=== PATIENT | male | born 1965 | race Two or more races ===

== ENCOUNTER 2016-07-23 17:38 | Emergency (ER) | payer OTHER ==
[2016-07-23 18:06] VITALS: BP 133/83
--- NOTE | 2016-07-23 18:34 | UC ---
Ear Complaint HPI - HPI Summary HPI Summary: Patient was cleaning his right ear 1 hour ago, had a sudden pain and is having difficulty hearing out of the right ear. - History of Current Complaint Chief Complaint: UCEar Stated Complaint: EAR COMPLAINT Time Seen by Provider: 07/23/16 18:22 Hx Obtained From: Patient Onset/Duration: Sudden Onset, Lasting Hours Severity Initially: Moderate Severity Currently: Moderate Associated Signs/Symptoms: Positive: Hearing Loss - Allergies/Home Medications Allergies/Adverse Reactions: Allergies Allergy/AdvReac Type Severity Reaction Status Date / Time No Known Allergies Allergy Verified 07/23/16 18:06 PMH/Surg Hx/FS Hx/Imm Hx Previously Healthy: Yes Endocrine History Of: Reports: Diabetes Denies: Thyroid Disease Cardiovascular History Of: Reports: Cardiac Disorders - CABG x2, Hypertension, Myocardial Infarction - x2 Denies: Pacemaker/ICD, Congestive Heart Failure Respiratory History Of: Denies: COPD, Asthma GI/ History Of: Denies: Ulcer, Renal Disease - Surgical History Surgical History: Yes Surgery Procedure, Year, and Place: Stent to LAD 2003. cardiac bypass surgery 2009, 2011 - Family History Known Family History: Positive: None - Social History Alcohol Use: Rare Substance Use Type: None Smoking Status (MU): Heavy Every Day Tobacco Smoker Type: Cigarettes Amount Used/How Often: 1 pck per day Have You Smoked in the Last Year: Yes - "a cigarette if I'm very stressed". When Did the Patient Quit Smoking/Using Tobacco: 10 days ago - Immunization History Most Recent Influenza Vaccination: never Most Recent Tetanus Shot: Unknown Most Recent Pneumonia Vaccination: never Review of Systems Constitutional: Negative Skin: Negative Eyes: Negative ENT: Ear Ache Respiratory: Negative Cardiovascular: Negative Gastrointestinal: Negative Genitourinary: Negative Motor: Negative Neurovascular: Negative Musculoskeletal: Negative Neurological: Negative Psychological: Negative All Other Systems Reviewed And Are Negative: Yes Physical Exam Triage Information Reviewed: Yes Appearance: Well-Appearing, Well-Nourished, Pain Distress Vital Signs: Initial Vital Signs Temp 97.8 F 07/23/16 18:02 Pulse 82 07/23/16 18:02 Resp 20 07/23/16 18:02 BP 133/83 07/23/16 18:02 Pulse Ox 99 07/23/16 18:02 Vital Signs Reviewed: Yes Eye Exam: Normal Eyes: Positive: Conjunctiva Clear ENT: Positive: Normal ENT inspection, Hearing grossly normal, Other: - right sided cerumen impaction Dental Exam: Normal Neck exam: Normal Neck: Positive: Supple, Nontender, No Lymphadenopathy Respiratory Exam: Normal Respiratory: Positive: Chest non-tender, Lungs clear, Normal breath sounds Cardiovascular Exam: Normal Cardiovascular: Positive: RRR, No Murmur, Pulses Normal Abdominal Exam: Normal Abdomen Description: Positive: Nontender, No Organomegaly, Soft Bowel Sounds: Positive: Present Musculoskeletal Exam: Normal Neurological Exam: Normal Psychological Exam: Normal Skin Exam: Normal Ear Complaint Course/Dx - Course Course Of Treatment: hx obtained, exam performed, meds reviewed, right ear irrigation performed with good results, otitis media of right ear noted, - Differential Dx/Diagnosis Differential Diagnosis/HQI/PQRI: Bronchitis, Cellulitis, Cerumen Impaction, Otitis Externa, Otitis Media, Trauma, URI Provider Diagnoses: right cerumen impaction. right otitis media Discharge - Discharge Plan Condition: Stable Disposition: HOME Patient Education Materials: Otitis Media (ED) Additional Instructions: 1. take the medication as prescribed. 2. Dont use qtips in your ears!
== END 2016-07-23 19:07 | disposition home or self-care (01) ==
LOC: UCEAST 17:38
DX: H61.21 Impacted cerumen, right ear (principal); H66.91 Otitis media, unspecified, right ear; E11.9 Type 2 diabetes mellitus without complications; I25.2 Old myocardial infarction; I10 Essential (primary) hypertension; Z95.1 Presence of aortocoronary bypass graft; F17.210 Nicotine dependence, cigarettes, uncomplicated
CPT/HCPCS: 99213; G0463

== ENCOUNTER 2016-08-20 18:01 | Emergency (ER) | payer OTHER ==
[2016-08-20 18:14] VITALS: BP 118/79
== END 2016-08-20 19:43 | disposition left against medical advice (07) ==
LOC: ED 18:01
DX: K08.89 Other specified disorders of teeth and supporting structures (principal); Z53.21 Procedure and treatment not carried out due to patient leaving prior to being seen by health care provider

== ENCOUNTER 2016-08-20 19:38 | Emergency (ER) | payer OTHER ==
[2016-08-20 20:13] VITALS: BP 131/84
--- NOTE | 2016-08-20 21:09 | UC ---
Dental HPI - HPI Summary HPI Summary: Had L lower cracked rear molar removed by oral surgeon under general anesthesia 1 week ago. About 2-3 days ago has been having sharp stabbing pains on L cheek and around the eye. Not sure if his L top molars are infected now, but does not have pain with chewing or focal tenderness. No facial swelling or fever. - History of Current Complaint Chief Complaint: UCGeneralIllness Stated Complaint: TOOTH ACHE Time Seen by Provider: 08/20/16 20:49 Hx Obtained From: Patient Onset/Duration: Gradual Onset, Lasting Days Severity: Moderate Aggravating: Nothing - Allergies/Home Medications Allergies/Adverse Reactions: Allergies Allergy/AdvReac Type Severity Reaction Status Date / Time No Known Allergies Allergy Verified 07/23/16 18:06 PMH/Surg Hx/FS Hx/Imm Hx Endocrine History Of: Reports: Diabetes Denies: Thyroid Disease Cardiovascular History Of: Reports: Cardiac Disorders - CABG x2, Hypertension, Myocardial Infarction - x2 Denies: Pacemaker/ICD, Congestive Heart Failure Respiratory History Of: Denies: COPD, Asthma GI/ History Of: Denies: Ulcer, Renal Disease - Surgical History Surgical History: Yes Surgery Procedure, Year, and Place: Stent to LAD 2003. cardiac bypass surgery 2009, 2011 - Family History Known Family History: Positive: Hypertension - Social History Lives: With Family Alcohol Use: Rare Substance Use Type: None Smoking Status (MU): Heavy Every Day Tobacco Smoker Type: Cigarettes Amount Used/How Often: 1 pck per day Have You Smoked in the Last Year: Yes - "a cigarette if I'm very stressed". When Did the Patient Quit Smoking/Using Tobacco: 10 days ago - Immunization History Most Recent Influenza Vaccination: never Most Recent Tetanus Shot: Unknown Most Recent Pneumonia Vaccination: never Review of Systems Constitutional: Negative Skin: Negative Eyes: Negative ENT: Dental Pain, Other - facial pain Respiratory: Negative Cardiovascular: Negative Gastrointestinal: Negative Genitourinary: Negative Motor: Negative Neurovascular: Negative Musculoskeletal: Negative Neurological: Negative Psychological: Negative All Other Systems Reviewed And Are Negative: Yes Physical Exam Triage Information Reviewed: Yes Appearance: Well-Appearing, No Pain Distress, Well-Nourished Vital Signs: Initial Vital Signs Temp 97.8 F 08/20/16 20:05 Pulse 72 08/20/16 20:05 Resp 16 08/20/16 20:05 BP 131/84 08/20/16 20:05 Pulse Ox 99 08/20/16 20:05 Vital Signs Reviewed: Yes Eye Exam: Normal Eyes: Positive: Conjunctiva Clear ENT Exam: Normal ENT: Positive: Normal ENT inspection, Hearing grossly normal, Pharynx normal, TMs normal. Negative: TM bulging, TM dull, TM red, Tonsillar swelling, Tonsillar exudate Dental: Positive: Other: - site of L lower molar extraction healing without erythema or drainage. Negative: Percussion Tenderness @, Gross Decay/Caries @, Dental Fracture @ Neck exam: Normal Neck: Positive: Supple, Nontender, No Lymphadenopathy Respiratory Exam: Normal Respiratory: Positive: Chest non-tender, Lungs clear, Normal breath sounds, No respiratory distress, No accessory muscle use Cardiovascular Exam: Normal Cardiovascular: Positive: RRR, No Murmur Musculoskeletal Exam: Normal Neurological Exam: Normal Neurological: Positive: Alert Psychological Exam: Normal Skin Exam: Normal - Additional Comments reports some "tingling," faint symptoms with tapping over L facial nerve Dental Complaint Course/Dx - Differential Dx/Diagnosis Provider Diagnoses: L trigeminal neuralgia Discharge - Discharge Plan Condition: Stable Disposition: HOME Prescriptions: Gabapentin CAP(*) [Neurontin 300 CAP(*)] 300 mg PO TID #30 cap Ibuprofen TAB* [Motrin TAB* 600 MG] 600 mg PO Q8H PRN #30 tab PRN Reason: Pain Patient Education Materials: Trigeminal Neuralgia (ED) Referrals: Juan Manuel Sen MD [Primary Care Provider] - 3 Days Additional Instructions: I recommend you take one gabapentin pill tomorrow, two pills 12 hours apart the next day, and then start taking them three times per day after that. Your primary care office may direct you to take them in higher doses if you are still not getting pain relief. I do not see sings of dental infection, but if you have drainage in the mouth or facial swelling, please see your dentist or return here for further care.
== END 2016-08-20 21:15 | disposition home or self-care (01) ==
LOC: UCEAST 19:38
DX: G50.0 Trigeminal neuralgia (principal); E11.9 Type 2 diabetes mellitus without complications; F17.210 Nicotine dependence, cigarettes, uncomplicated; I10 Essential (primary) hypertension; Z95.5 Presence of coronary angioplasty implant and graft; I25.2 Old myocardial infarction
CPT/HCPCS: 99212; G0463

== ENCOUNTER 2016-10-04 06:45 | Day surgery (SDC) | payer OTHER ==
[~2016-10-04 06:45] MED LIST: Buffered Lidocaine 0.9% SYRIN* 5 ML/SYR SYRINGE INTRADERM ONE; Dexamethasone IV* 4 MG/ML 1 ML (4 MG) IV SLOW PU ONE; Famotidine IV* 10 MG/ML 2 ML (20 mg) IV ONE
[2016-10-04] MEDS ORDERED: Famotidine IV* 10 MG/ML 2 ML (20 mg) ONE (06:53)
[2016-10-04] MEDS ORDERED: Dexamethasone IV* 4 MG/ML 1 ML (4 MG) ONE ×2 (06:53→08:03)
[2016-10-04] MEDS ORDERED: Buffered Lidocaine 0.9% SYRIN* 5 ML/SYR SYRINGE ONE (06:53)
[2016-10-04] MEDS ORDERED: fentaNYL* 50 MCG/ML 2 ML VIAL (100 MCG VIAL) ONE (07:21)
[2016-10-04] MEDS ORDERED: Midazolam* 1 MG/ML 5 ML VIAL (5 MG) ONE (07:21)
[2016-10-04] MEDS ORDERED: Ketorolac INJ* 30 MG/ML 1 ML VIAL ONE (07:22)
[2016-10-04] MEDS ORDERED: Ondansetron INJ* 2 MG/ML VIAL ONE ×2 (07:22→08:03)
[2016-10-04] MEDS ORDERED: Propofol* 10 MG/ML 20 ML BTL IV PUSH ONE (07:22)
[2016-10-04] MEDS ORDERED: Bupivacaine 0.25% SDV* 30 ML ONE (07:24)
[2016-10-04] MEDS ORDERED: ceFAZolin 2 GM PREMIX(*) 2 GM/50 ML BAG IVPB ONE (07:29)
[2016-10-04 08:54] VITALS: BP 142/88
== END 2016-10-04 08:50 | disposition home or self-care (01) ==
LOC: OREAST 06:45
PROVIDERS: ATTEND Plastic Surgery
DX: M65.322 Trigger finger, left index finger (principal); E11.9 Type 2 diabetes mellitus without complications; Z79.4 Long term (current) use of insulin; I10 Essential (primary) hypertension; Z95.5 Presence of coronary angioplasty implant and graft; Z79.01 Long term (current) use of anticoagulants; F17.210 Nicotine dependence, cigarettes, uncomplicated
CPT/HCPCS: J0690; J1100; J1885; J2250; J2405; J2704; J3010

== ENCOUNTER 2017-01-17 09:00 | Emergency (ER) | payer OTHER ==
[2017-01-17 09:14] VITALS: BP 153/79
--- NOTE | 2017-01-17 10:33 | UC ---
Respiratory Complaint HPI - HPI Summary HPI Summary: This is a 51 yo male with IDDM and CAD who smokes daily who presents with c/o cough x 2-3d. Patient denies assoc fever and SOB. No sick contacts. No n/v or abd pain. He denies a h/o COPD. Denies a h/o freq lung infections. Patient reports that his cough is mildly productive. - History of Current Complaint Chief Complaint: UCRespiratory Stated Complaint: CONGESTION COUGH - Allergies/Home Medications Allergies/Adverse Reactions: Allergies Allergy/AdvReac Type Severity Reaction Status Date / Time No Known Allergies Allergy Verified 01/17/17 09:14 PMH/Surg Hx/FS Hx/Imm Hx Previously Healthy: No Endocrine History: Diabetes Cardiovascular History: Cardiac Disease - Surgical History Surgical History: Yes Surgery Procedure, Year, and Place: Stent to LAD 2001. CARDIAC STENTS PLACED 1 2001, 1 STENT 2010. 12/2015 LAPAROSCOPIC CHOLEYCECTOMY - Family History Known Family History: Positive: None - Social History Alcohol Use: None Substance Use Type: None Smoking Status (MU): Heavy Every Day Tobacco Smoker Type: Cigarettes Amount Used/How Often: 1 pck per day Have You Smoked in the Last Year: Yes - "a cigarette if I'm very stressed". When Did the Patient Quit Smoking/Using Tobacco: 10 days ago - Immunization History Most Recent Influenza Vaccination: never Most Recent Tetanus Shot: Unknown Most Recent Pneumonia Vaccination: never Review of Systems Constitutional: Negative Skin: Negative Eyes: Negative ENT: Negative Respiratory: Cough Cardiovascular: Negative Gastrointestinal: Negative Genitourinary: Negative Motor: Negative Neurovascular: Negative Musculoskeletal: Negative Neurological: Negative Psychological: Negative Is Patient Immunocompromised?: No All Other Systems Reviewed And Are Negative: Yes Physical Exam Triage Information Reviewed: Yes Appearance: Well-Appearing Vital Signs: Initial Vital Signs Temp 98.3 F 01/17/17 09:11 Pulse 87 01/17/17 09:11 Resp 20 01/17/17 09:11 BP 153/79 01/17/17 09:11 Pulse Ox 98 01/17/17 09:11 Vital Signs Reviewed: Yes ENT: Positive: Normal ENT inspection Neck: Positive: Supple, Nontender, No Lymphadenopathy Respiratory: Positive: Lungs clear, Other: - mild reduced breath sounds. Negative: Crackles, Rhonchi, Wheezing Cardiovascular: Positive: RRR, No Murmur Abdomen Description: Positive: Nontender, Soft Musculoskeletal: Positive: Strength Intact, ROM Intact Neurological: Positive: Alert Psychological Exam: Normal Skin Exam: Normal UC Diagnostic Evaluation - Laboratory O2 Sat by Pulse Oximetry: 98 Respiratory Course/Dx - Course Course Of Treatment: This is a 51 yo male who smokes with CAD and IDDM who presents with c/o cough x2-3d. Lung exam is fairly benign, no resp distress. Treat for acute bronchitis with azithromycin and prn albuterol. Corticosteroids avoided due to his DM and no wheeze on exam. - Differential Dx/Diagnosis Differential Diagnosis/HQI/PQRI: Asthma, Laryngitis, Lower Resp Infection, Sinusitis Provider Diagnoses: 1. Acute bronchitis Discharge - Discharge Plan Condition: Stable Disposition: HOME Prescriptions: Albuterol HFA INHALER* [Ventolin HFA Inhaler*] 2 puff INH Q4H PRN #1 mdi PRN Reason: sob/cough Azithromyxin RED (NF) [Z-Red (Zithromax) 250 mg tabs #6] 2 tab PO .TODAY, THEN 1 DAILY #6 tab Patient Education Materials: Acute Bronchitis (ED) Forms: *Work Release Referrals: Roge Tarango MD [Primary Care Provider] - If Needed Additional Instructions: Instructions: 1. Use antibiotics as directed and albuterol inhaler for coughing fits 2. If you are not improving in 2-3 days, please return for re-evaluation
== END 2017-01-17 10:30 | disposition home or self-care (01) ==
LOC: UCEAST 09:00
DX: J20.9 Acute bronchitis, unspecified (principal); E11.9 Type 2 diabetes mellitus without complications; Z79.4 Long term (current) use of insulin; I25.10 Atherosclerotic heart disease of native coronary artery without angina pectoris; F17.210 Nicotine dependence, cigarettes, uncomplicated; Z98.61 Coronary angioplasty status
CPT/HCPCS: 99212; G0463

== ENCOUNTER 2017-01-22 00:47 | Emergency (ER) | payer OTHER ==
[2017-01-22] MEDS ORDERED: Aspirin Low Dose CHEW TAB* 81 MG PO ONE (01:13)
[2017-01-22] MEDS ORDERED: Nitroglycerin 0.2 MG/HR PATCH* (5 MG) TRANSDERM ONE (01:13)
[2017-01-22 01:25] LABS: Hematocrit 46 % (42-52); Hemoglobin 15.7 g/dl (14.0-18.0); Mean Corpuscular HGB Conc 35 g/dl (31-36); Mean Corpuscular Hemoglobin 31 pg (27-31); Mean Corpuscular Volume 90 fL (80-94); Mean Platelet Volume 7 um3 (7.4-10.4); Red Blood Count 5.05 10^6/ul (4.0-5.4); Red Cell Distribution Width 14 % (10.5-15); White Blood Count 10.3 10^3/ul (3.5-10.8)
[2017-01-22] MEDS ORDERED: Nitroglycerin 2% OINT* 1 GM PAK ONE (01:28)
[2017-01-22] MEDS ORDERED: Nitroglycerin 2% OINT* 1 GM PAK TOPICAL ONE (01:31)
[2017-01-22 01:36] LABS: BUN/Creatinine Ratio 22.4 (8-20); Calcium 9.7 mg/dL (8.6-10.3); EGFR African American 121.7 (>60); EGFR Non-African American 94.7 (>60); Magnesium 1.8 mg/dL (1.9-2.7); Total Bilirubin 0.6 mg/dL (0.2-1.0)
[2017-01-22 01:38] LABS: Troponin I 0.01 ng/mL (<0.04)
[2017-01-22 03:12] VITALS: BP 122/89
--- NOTE | 2017-01-22 03:37 | ED ---
Angelo Gutierrez Thomas, scribed for Karthik Lizarraga on 01/22/17 at 0135 . HPI Chest Pain - HPI Summary HPI Summary: The pt is a 51 y/o M presenting to the ED c/o CP that began 90 minutes ago. Last night, he had a 15-minute episode of chest pain. The pain began when he was trying to go to sleep. The pain is described as tightness. In the ED, he rates his pain 3/10. The pain is aggravated by nothing and is alleviated by nothing. The patient has treated the pain with NTG SWITCH[employer] SUPER[employer], which mostly relieved his pain. Pt denies N/V, dizziness, and SOB. His has coronary stents with his last stent placement in 2010. His last stress test was 9 months ago. 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 Adorno. He is a current smoker. The patient is accompanied by his . - History of Current Complaint Chief Complaint: EDChestPainROMI Time Seen by Provider: 01/22/17 01:03 Hx Obtained From: Patient, Family/Real Estate Lawyer - in room Onset/Duration: Started Minutes Ago - onset of pain 90 minutes ago, Still Present Timing: Constant Pain Intensity: 3 Pain Scale Used: 0-10 Numeric Chest Pain Radiates: No Character: Tightness Aggravating Factor(s): Nothing Alleviating Factor(s): Nothing Associated Signs and Symptoms: Positive: Chest Pain. Negative: Dizziness, Shortness of Breath, Nausea, Vomiting - Allergy/Home Medications Allergies/Adverse Reactions: Allergies Allergy/AdvReac Type Severity Reaction Status Date / Time No Known Allergies Allergy Verified 01/17/17 09:14 PMH/Surg Hx/FS Hx/Imm Hx Previously Healthy: No Endocrine/Hematology History: Reports: Hx Diabetes - IDDM Denies: Hx Thyroid Disease Cardiovascular History: Reports: Hx Angina, Hx Coronary Artery Disease, Hx Hypercholesterolemia, Hx Hypertension, Hx Myocardial Infarction - x2, Other Cardiovascular Problems/Disorders - HYPERLIPIDEMIA Denies: Hx Congestive Heart Failure, Hx Pacemaker/ICD, Hx Valvular Heart Disease Respiratory History: Denies: Hx Asthma, Hx Chronic Obstructive Pulmonary Disease (COPD) GI History: Denies: Hx Gastroesophageal Reflux Disease, Hx Ulcer History: Denies: Hx Renal Disease Sensory History: Reports: Hx Contacts or Glasses - GLASSES Denies: Hx Hearing Aid Opthamlomology History: Reports: Hx Contacts or Glasses - GLASSES Psychiatric History: Denies: Hx Panic Disorder - Cancer History Cancer Type, Location and Year: cardiac bypass surgery 2009, 2011 - Surgical History Surgery Procedure, Year, and Place: Stent to LAD 2001. CARDIAC STENTS PLACED 1 2001, 1 STENT 2010. 12/2015 LAPAROSCOPIC CHOLEYCECTOMY Hx Anesthesia Reactions: No Infectious Disease History: No Infectious Disease History: Denies: Hx Clostridium Difficile, Hx Hepatitis, Hx Human Immunodeficiency Virus (HIV), Hx of Known/Suspected MRSA, Hx Shingles, Hx Tuberculosis, Hx Known/ Suspected VRE, Hx Known/Suspected VRSA, History Other Infectious Disease, Traveled Outside the [place] in Last 30 Days - Family History Known Family History: Positive: Hypertension - Social History Lives: With Family Alcohol Use: None Substance Use Type: Reports: None Hx Tobacco Use: Yes Smoking Status (MU): Heavy Every Day Tobacco Smoker Type: Cigarettes Amount Used/How Often: 1 pck per day Have You Smoked in the Last Year: Yes - "a cigarette if I'm very stressed". Review of Systems Positive: Chest Pain Negative: Shortness Of Breath Negative: Vomiting, Nausea Neurological: Other - NEGATIVE: dizziness All Other Systems Reviewed And Are Negative: Yes Physical Exam - Summary Physical Exam Summary: Appearance: Well appearing, no pain distress Skin: warm, dry, reflects adequate perfusion Head/face: normal Eyes: EOMI, GHANSHYAM ENT: normal Neck: supple, nontender Respiratory: CTA, breath sounds present Cardiovascular: RRR, pulses symmetrical Abdomen: nontender, soft Bowel: present Musculoskeletal: normal, strength/ROM intact Neuro: normal, sensory motor intact, A&Ox3 Triage Information Reviewed: Yes Vital Signs On Initial Exam: Initial Vitals Temp Pulse Resp BP Pulse Ox 97.4 F 63 18 162/89 99 01/22/17 00:53 01/22/17 00:53 01/22/17 00:53 01/22/17 00:53 01/22/17 00:53 Vital Signs Reviewed: Yes - Dorys Coma Scale Coma Scale Total: 15 Diagnostics - Vital Signs Vital Signs Temp Pulse Resp BP Pulse Ox 01/22/17 01:05 68 29 97 01/22/17 01:03 148/85 01/22/17 00:53 97.4 F 63 18 162/89 99 - Laboratory Lab Results: Lab Results 01/22/17 Range/Units 01:00 WBC 10.3 (3.5-10.8) 10^3/ul RBC 5.05 (4.0-5.4) 10^6/ul Hgb 15.7 (14.0-18.0) g/dl Hct 46 (42-52) % MCV 90 (80-94) fL MCH 31 (27-31) pg MCHC 35 (31-36) g/dl RDW 14 (10.5-15) % Plt Count 288 (150-450) 10^3/ul MPV 7 L (7.4-10.4) um3 Neut % (Auto) 52.8 (38-83) % Lymph % (Auto) 35.9 (25-47) % [place] % (Auto) 7.8 (1-9) % Eos % (Auto) 2.5 (0-6) % Baso % (Auto) 1.0 (0-2) % Absolute Neuts (auto) 5.4 (1.5-7.7) 10^3/ul Absolute Lymphs (auto) 3.7 (1.0-4.8) 10^3/ul Absolute Monos (auto) 0.8 (0-0.8) 10^3/ul Absolute Eos (auto) 0.3 (0-0.6) 10^3/ul Absolute Basos (auto) 0.1 (0-0.2) 10^3/ul Absolute Nucleated RBC 0.01 10^3/ul Nucleated RBC % 0.1 Result Diagrams: 01/22/17 01:00 01/22/17 01:00 Lab Statement: Any lab studies that have been ordered have been reviewed, and results considered in the medical decision making process. - Radiology CXR Xray Interpretation: No Acute Changes - No acute disease Radiology Interpretation Completed By: ED Physician - EKG 00:49 Cardiac Rate: NL - 66 BPM EKG Rhythm: Sinus Rhythm Chest Pain Course/Dx - Course Assessment/Plan: The pt is a 51 y/o M presenting to the ED c/o CP. The patient has decided to leave against medical advice. I discussed the risk of OK with the patient. He understands the risk and instead wants to follow up with primary care and cardiology. - Chest Pain Differential Diagnosis/HQI/PQRI: Acute OK, ACS, Lower Respiratory Infection - Diagnoses Provider Diagnoses: Chest pain, CAD (coronary artery disease) Discharge - Discharge Plan Condition: Guarded Disposition: AGAINST MEDICAL ADVICE Referrals: Roge Tarango MD [Primary Care Provider] - The documentation as recorded by the Angelo pemberton Thomas accurately reflects the service I personally performed and the decisions made by me, Karthik Lizarraga.
--- NOTE | 2017-01-22 08:11 | RAD ---
INDICATION: Chest pain COMPARISON: Most recent comparison chest x-rays dated April 28, 2015 TECHNIQUE: Single AP portable view of the chest was obtained. FINDINGS: Image quality is compromised due to the relative inferiority of a portable chest x-ray. The heart and mediastinum exhibit normal size and contour. The lungs are grossly clear. There is no evidence of a large pleural effusion. Visualized bones are normal for the patient's age. IMPRESSION: No radiographic evidence for acute cardiopulmonary abnormality on this portable chest x-ray.
== END 2017-01-22 03:12 | disposition left against medical advice (07) ==
LOC: ED 00:47
DX: R07.9 Chest pain, unspecified (principal); I25.10 Atherosclerotic heart disease of native coronary artery without angina pectoris; F17.210 Nicotine dependence, cigarettes, uncomplicated
CPT/HCPCS: 36415; 71010; 80053; 83735; 83880; 84484; 85025; 85610; 85730; 93005; 99283; A9270-GY

== ENCOUNTER 2017-06-16 10:03 | Observation (INO) | payer OTHER ==
[2017-06-16] MEDS ORDERED: Nitroglycerin TAB 0.4 MG* 0.4 MG TAB SL ONE ×2 (10:32→12:20)
[2017-06-16] MEDS ORDERED: Aspirin Low Dose CHEW TAB* 81 MG PO ONE (10:32)
[2017-06-16 10:34] LABS: ABS Basophils 0.3 10^3/ul (0-0.2); ABS Eosinophils 0.1 10^3/ul (0-0.6); ABS Lymphocytes 1.9 10^3/ul (1.0-4.8); ABS Monocytes 0.5 10^3/ul (0-0.8); ABS Neutrophils 6.2 10^3/ul (1.5-7.7); ABS Nucleated RBC 0 10^3/ul; Eosinophil % 1.1 % (0-6); Hematocrit 45 % (42-52); Hemoglobin 15.6 g/dl (14.0-18.0); Lymphocyte % 21.3 % (25-47); Mean Corpuscular HGB Conc 35 g/dl (31-36); Mean Corpuscular Hemoglobin 30 pg (27-31); Mean Corpuscular Volume 88 fL (80-94); Mean Platelet Volume 7 um3 (7.4-10.4); Nucleated Red Blood Cells % 0.1; Platelet Count 267 10^3/ul (150-450); Red Blood Count 5.15 10^6/ul (4.0-5.4); Red Cell Distribution Width 13 % (10.5-15)
[2017-06-16 10:39] LABS: INR 0.87 (0.77-1.02)
[2017-06-16] MEDS ORDERED: NS 0.9% 1000 ML* 1,000 ML IV SCH (10:45)
--- NOTE | 2017-06-16 11:50 | RAD ---
INDICATION: Chest pain COMPARISON: Most recent comparison chest x-ray dated January 22, 2017 TECHNIQUE: Single AP portable view of the chest was obtained. FINDINGS: Image quality is compromised due to the relative inferiority of a portable chest x-ray. The heart and mediastinum exhibit normal size and contour. The lungs are grossly clear. There is no evidence of a large pleural effusion. Visualized bones are normal for the patient's age. IMPRESSION: No radiographic evidence for acute cardiopulmonary abnormality on this portable chest x-ray.
[2017-06-16] MEDS ORDERED: Nitroglycerin TAB 0.4 MG* 0.4 MG TAB SL PRN (12:16)
[2017-06-16] MEDS ORDERED: Albuterol HFA INHALER* 8 gm MDI INH PRN (12:16)
[2017-06-16] MEDS ORDERED: Dextrose 50% Syringe 50 ML* 25 GM/50 ML SYRINGE IV PUSH PRN (12:19)
[2017-06-16] MEDS ORDERED: Magnesium Sulfate 1 GM IV* 1 GM/100 ML BAG IV ONE (12:24)
[2017-06-16] MEDS ORDERED: Clopidogrel TAB* 300 MG PO ONE (12:57)
--- NOTE | 2017-06-16 12:59 | ED ---
Ricky Gutierrez Elizabeth, scribed for Angelo Frazier MD on 06/16/17 at 1101 . HPI Chest Pain - HPI Summary HPI Summary: The patient is a 52 year old male complaining of left chest pain that began 07: 30 this morning. Patient describes the pain as tightness and says it does not radiate anywhere. Patient notes that the pain and that it was 7/10 and is currently 6/10. The patient denies nausea, diaphoresis, or shortness of breath. He took NTG this morning but notes that it did not help. He also says he had chest pain 1 day ago that dissipated we he took NTG. Per triage note, patient has a history of NE and had stents placed in 2010. - History of Current Complaint Chief Complaint: EDChestPainROMI Time Seen by Provider: 06/16/17 10:21 Hx Obtained From: Patient Onset/Duration: Started Hours Ago, Still Present Time of Onset: 07:30 Timing: Lasting Hours Initial Severity: Moderate - 7/10 Current Severity: Mild - 6/10 Pain Intensity: 8 Pain Scale Used: 0-10 Numeric Chest Pain Location: Left Lateral Chest Pain Radiates: No Character: Tightness Associated Signs and Symptoms: Positive: Chest Pain. Negative: Shortness of Breath, Diaphoresis - Allergy/Home Medications Allergies/Adverse Reactions: Allergies Allergy/AdvReac Type Severity Reaction Status Date / Time No Known Allergies Allergy Verified 01/17/17 09:14 PMH/Surg Hx/FS Hx/Imm Hx Endocrine/Hematology History: Reports: Hx Diabetes - IDDM Denies: Hx Thyroid Disease Cardiovascular History: Reports: Hx Angina, Hx Coronary Artery Disease, Hx Hypercholesterolemia, Hx Hypertension, Hx Myocardial Infarction - x2, Other Cardiovascular Problems/Disorders - HYPERLIPIDEMIA Denies: Hx Congestive Heart Failure, Hx Pacemaker/ICD, Hx Valvular Heart Disease Respiratory History: Denies: Hx Asthma, Hx Chronic Obstructive Pulmonary Disease (COPD) GI History: Denies: Hx Gastroesophageal Reflux Disease, Hx Ulcer History: Denies: Hx Renal Disease Sensory History: Reports: Hx Contacts or Glasses - GLASSES Denies: Hx Hearing Aid Opthamlomology History: Reports: Hx Contacts or Glasses - GLASSES Psychiatric History: Denies: Hx Panic Disorder - Cancer History Cancer Type, Location and Year: cardiac bypass surgery 2009, 2011 - Surgical History Surgery Procedure, Year, and Place: Stent to [facility]AD 2001. CARDIAC STENTS PLACED 1 2001, 1 STENT 2010. 12/2015 LAPAROSCOPIC CHOLEYCECTOMY Hx Anesthesia Reactions: No Infectious Disease History: No Infectious Disease History: Denies: Hx Clostridium Difficile, Hx Hepatitis, Hx Human Immunodeficiency Virus (HIV), Hx of Known/Suspected MRSA, Hx Shingles, Hx Tuberculosis, Hx Known/ Suspected VRE, Hx Known/Suspected VRSA, History Other Infectious Disease, Traveled Outside the [place] in Last 30 Days - Family History Known Family History: Positive: None, Hypertension - Social History Alcohol Use: None Substance Use Type: Reports: None Hx Tobacco Use: Yes Smoking Status (MU): Former Smoker - Patient says he quit 8 months ago Type: Cigarettes Amount Used/How Often: 1 pck per day Have You Smoked in the Last Year: Yes - "a cigarette if I'm very stressed". Review of Systems Negative: Skin Diaphoresis Positive: Chest Pain - left chest pain Negative: Shortness Of Breath Negative: Nausea All Other Systems Reviewed And Are Negative: Yes Physical Exam - Summary Physical Exam Summary: General: well-appearing, no pain distress Skin: warm, color reflects adequate perfusion, dry Head: normal Eyes: EOMI, GHANSHYAM ENT: normal Neck: supple, nontender Respiratory: CTA, breath sounds present Cardiovascular: RRR Abdomen: soft, nontender Bowel: present Musculoskeletal: normal, strength/ROM intact Neurological: normal, sensory/motor intact, A&O x3 Psychological: affect/mood appropriate Triage Information Reviewed: Yes Vital Signs On Initial Exam: Initial Vitals Temp Pulse Resp BP Pulse Ox 97.6 F 86 12 153/98 97 06/16/17 10:09 06/16/17 10:09 06/16/17 10:06/16/17 10:06/16/17 10:09 Vital Signs Reviewed: Yes Diagnostics - Vital Signs Vital Signs Temp Pulse Resp BP Pulse Ox 06/16/17 10:09 97.6 F 86 12 153/98 97 - Laboratory Lab Results: Lab Results 06/16/17 06/16/17 Range/Units 10:25 10:25 WBC 9.0 (3.5-10.8) 10^3/ul RBC 5.15 (4.0-5.4) 10^6/ul Hgb 15.6 (14.0-18.0) g/dl Hct 45 (42-52) % MCV 88 (80-94) fL MCH 30 (27-31) pg MCHC 35 (31-36) g/dl RDW 13 (10.5-15) % Plt Count 267 (150-450) 10^3/ul MPV 7 L (7.4-10.4) um3 Neut % (Auto) 68.6 (38-83) % Lymph % (Auto) 21.3 L (25-47) % Emmons % (Auto) 6.1 (0-7) % Eos % (Auto) 1.1 (0-6) % Baso % (Auto) 2.9 H (0-2) % Absolute Neuts (auto) 6.2 (1.5-7.7) 10^3/ul Absolute Lymphs (auto) 1.9 (1.0-4.8) 10^3/ul Absolute Monos (auto) 0.5 (0-0.8) 10^3/ul Absolute Eos (auto) 0.1 (0-0.6) 10^3/ul Absolute Basos (auto) 0.3 H (0-0.2) 10^3/ul Absolute Nucleated RBC 0 10^3/ul Nucleated RBC % 0.1 INR (Anticoag Therapy) 0.87 (0.77-1.02) Result Diagrams: 06/16/17 10:25 06/16/17 10:25 Lab Statement: Any lab studies that have been ordered have been reviewed, and results considered in the medical decision making process. - Radiology CXR Xray Interpretation: No Acute Changes - IMPRESSION: No radiographic evidence for acute cardiopulmonary abnormality on this portable chest x-ray. Dr. Frazier has reviewed this report. Radiology Interpretation Completed By: Radiologist - EKG 10:08 Cardiac Rate: NL - 83 BPM EKG Rhythm: Sinus Rhythm ST Segment: Normal Ectopy: None Chest Pain Course/Dx - Course Course Of Treatment: ADMIT HOSPITALIST - Diagnoses Provider Diagnoses: Chest pain, Elevated troponin Discharge - Discharge Plan Condition: Stable Disposition: ADMITTED TO [facility] Referrals: Roge Tarango MD [Primary Care Provider] - The documentation as recorded by the Ricky pemberton Elizabeth accurately reflects the service I personally performed and the decisions made by , Angelo Frazier MD.
[2017-06-16] MEDS ORDERED: Heparin VIAL(*) 5000 UNITS/ML VIAL (FIVE THOUSAND) IV ONE ×2 (13:00→14:00)
[2017-06-16] MEDS ORDERED: Heparin DRIP 25,000 UNITS(*) 25,000 UNITS/500 ML BAG IV SCH (13:00)
[2017-06-16] MEDS ORDERED: Heparin VIAL(*) 5000 UNITS/ML VIAL (FIVE THOUSAND) SUBCUT SCH (14:00)
[2017-06-16] MEDS ORDERED: Heparin VIAL(*) 5000 UNITS/ML VIAL (FIVE THOUSAND) IV SCH (14:00)
[2017-06-16] MEDS: Heparin DRIP 25,000 UNITS(*) 25,000 UNITS/500 ML BAG IV SCH (14:09)
[2017-06-16] MEDS: Insulin LISPRO* 1 UNITS UNIT SUBCUT SCH ×3 (15:42→20:33)
--- NOTE | 2017-06-16 16:18 | CONSULT ---
Subjective Date of Service: 06/16/17 Interval History: Date of admission and consult 06/16/2017 Service: Hospitalist PMD: Dr. Tarango Trailer Park Manager: Dr. Adorno HPI: Ayaan Dasilva is a 52 year old man with a history of CAD as documented below with PCI in 2002 and 2012. He had smoked for 32 year until quitting 8 years ago. He tells me he was diagnosed with diabetes about age 41 which would have been after the first PCI. I do not have the 2002 films available to review. 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 He had been in the emergency department 12/2016 with chest discomfort related to bronchitis. His imdur was stopped around that time. He has had no recent chest discomfort other than starting 3 days ago. 3 days ago he started with on and off squeezing chest tightness while working at [employer]. No recent illness. Went home and discomfort went away and had no chest discomfort yesterday. This AM woke up and felt fine. This AM he started with discomfort after getting to work and walking around. It was associated with dyspnea. It was initially 7 to 8 out of 10. It improved to 4/10 within 15 minutes of SL NTG and gradually resolved and has not returned. Troponin at time of ACS in 2012 was as high as 4.5. He had normal troponins in 2013, 2014, 2015 and 2016. Troponin is now 0.1 and relatively stable on serial repeat up to 0.12 currently. His EKG shows no changes from prior and unchanged on repeat. I ambulated him [address] around [address] without reproduction of his chest discomfort. His last stress test was 05/2015 which I reviewed, converted to lexiscan due to leg discomfort. Per my interpretation it showed a small sized, mild intensity inferior wall ischemic defect. medication list reviewed verbally on 02/18/2017 Allergies: No Known Drug Allergy 07/10/12 allergy list reviewed on 02/18/2017 pmhx: Impotence of organic origin Gastroesophageal reflux disease Sleep disorder Essential hypertension Chronic ischemic heart disease Type 2 diabetes mellitus last available [id number] from 06/2016 was 8.8 Hyperlipidemia Coronary arteriosclerosis Acute subendocardial infarction Diabetes Type II Hypertension Dyslipidemia Gastroesophageal Reflux Disease (GERD) - (2013) Improved with PPI FH: Siblings:3 sisters, 1 brother. - One brother . All others have diabetes.. 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 allergies: nkda Medications Active Medications: Albuterol (Ventolin Hfa Inhaler*) 2 puff INH Q4H PRN PRN Reason: sob/cough Aspirin (Aspirin Ec Low Dose*) 81 mg PO DAILY [facility] Atorvastatin Calcium (Lipitor*) 40 mg PO DAILY AJ Bupropion HCl (Wellbutrin Sr Tab*) 150 mg PO BID AJ Clopidogrel Bisulfate (Plavix Tab*) 75 mg PO DAILY [facility] Dextrose (D50w Syringe 50 Ml*) 12.5 gm IV PUSH .FOR FS < 60 - SS PRN PRN Reason: FS < 60 Diltiazem HCl (Cardizem Cd Cap*) 240 mg PO DAILY [facility] Heparin Sodium/Dextrose (Heparin Drip 25,000 Units(*)) 25,000 units in 500 mls @ 0 mls/hr IV PER RATE AJ; Per Protocol PRN Reason: Protocol Last Admin: 06/16/17 14:09 Dose: 20 mls/hr Insulin Glargine (Lantus(*)) 55 units SUBCUT DAILY [facility] Insulin Human Lispro (Humalog*) 0 units SUBCUT ACHS [facility] PRN Reason: Protocol Last Admin: 06/16/17 15:42 Dose: 9 units Isosorbide Mononitrate (Imdur Er Tab*) 60 mg PO DAILY [facility] Lisinopril (Prinivil Tab*) 20 mg PO DAILY [facility] Nitroglycerin (Nitroglycerin Tab 0.4 Mg*) 0.4 mg SL Q5M PRN PRN Reason: PAIN - CHEST Pantoprazole Sodium (Protonix Tab (Nf)) 40 mg PO DAILY [facility] Home Medications: Aspirin EC Low Dose* [Ecotrin EC Low Dose 81 MG*] 81 mg PO DAILY 11/25/14 [ History Confirmed 06/16/17] Clopidogrel TAB* [Plavix TAB*] 75 mg PO DAILY 11/27/14 [History Confirmed ] Insulin Aspart PEN(NF) [Novolog Flexpen(NF)] 0 - 72 unit SUBCUT TID WITH MEALS MDD 72 units 08/19/15 [History Confirmed 06/16/17] Nitroglycerin TAB 0.4 MG* 0.4 mg SL Q5M PRN 08/19/15 [History Confirmed 06/16/17 ] Albuterol HFA INHALER* [Ventolin HFA Inhaler*] 2 puff INH Q4H PRN #1 mdi [Rx Confirmed 06/16/17] Atorvastatin* [Lipitor*] 40 mg PO DAILY 06/16/17 [History Confirmed 06/16/17] Insulin GLARGINE(*) [Lantus(*)] 0 - 70 units SUBCUT DAILY 06/16/17 [History Confirmed 06/16/17] Lisinopril TAB* [Prinivil TAB*] 20 mg PO DAILY 06/16/17 [History Confirmed 06/16] [place]-3 Fatty Acids/Fish Oil [Fish Oil 1,000 mg Capsule] 2 cap PO DAILY [History Confirmed 06/16/17] Pantoprazole TAB (NF) [Protonix TAB (NF)] 40 mg PO DAILY 06/16/17 [History Confirmed 06/16/17] Sitaglip/Metform XR50/1000(NR) [Janumet Xr (NR)] 1 tab PO BID 06/16/17 [ History Confirmed 06/16/17] buPROPion SR TAB* [Wellbutrin SR TAB*] 150 mg PO BID 06/16/17 [History Confirmed 06/16/17] dilTIAZem HCl [Cartia Xt] 240 mg PO DAILY 06/16/17 [History Confirmed 06/16/17] Review of Systems - Measurements Intake and Output: Intake and Output Last 24 Hours 06/14/17 06/15/17 06/16/17 06/17/17 06:59 06:59 06:59 06:59 Weight 213 lb 4.8 oz - Review of Systems Constitutional Symptoms: Negative: Weight Gain, Weight Loss, Weakness, Fatigue, Fever Dermatology: Negative: Rash, Skin Lesions HEENT: Negative: Change in Hearing, Vertigo Eyes: Negative: Change in Vision, Double Vision Thyroid: Negative: Goiter, Thyroid Nodule, Cold Intolerance, Heat Intolerance, Sweatiness, Frequent Defecation, Constipation, Palpitations, Weight Loss, Weight Gain Pulmonary: Positive: Shortness of Breath Negative: Cough, Sputum, Hemoptysis, Wheezing, Respiratory Distress, COPD, Asthma, Exercise Intolerance, Home Oxygen Cardiology: Positive: Chest Pain, Shortness of Breath Negative: Normal, Palpitations, Swelling of Ankles, Edema, Paroxysmal Nocturnal Dyspnea, Orthopnea Gastroenterology: Negative: Abdominal Pain, Nausea, Vomiting, Anorexia, Constipation, Diarrhea , Haematemesis, Melena Genital - Urinary: Negative: Dysuria, Hematuria Musculoskeletal: Negative: Joint Pain, Joint Stiffness, Arthritis Endocrinology: Positive: Obesity, Diabetes Negative: Thyroid Problems, Diabetic Foot Ulcers, Calluses Hematologic/Lymphatic: Positive: Use of Antiplatelet Drugs Negative: Anemia, Hx Leukemia, Hx Lymphoma, Use of Anticoagulant Neurology: Positive: Migraines Negative: Diplopia, Dizziness, Change in Balancing, Change in Coordination, Change in Memory, Change in Speech, Change in Sphincter Function Psychiatry: Negative: Unusual Anxiety, Suicidal Ideation Allergic/Immunologic: Negative: Hx HIV, Immunocompromise Review of Systems Statement: All other review of systems negative, unless stated above. Objective Vital Signs: Temp Pulse Resp BP Pulse Ox 97.8 F 80 20 132/82 98 06/16/17 14:40 06/16/17 14:40 06/16/17 14:40 06/16/17 14:40 06/16/17 14:40 Oxygen Devices in Use Now: None Appearance: nad, pleasant Ears/Nose/Mouth/Throat: Clear Oropharnyx, Mucous Membranes Moist Neck: NL Appearance and Movements; NL JVP, Trachea Midline Respiratory: Symmetrical Chest Expansion and Respiratory Effort, Clear to Auscultation Cardiovascular: NL Sounds; No Murmurs; No JVD, RRR, No Edema Abdominal: NL Sounds; No Tenderness; No Distention, - - obese Extremities: No Edema Skin: No Rash or Ulcers Laboratory Results: 06/16/17 10:25 06/16/17 10:25 INR (Anticoag Therapy) 0.87 (0.77-1.02) 06/16/17 10:25 APTT 31.7 seconds (26.0-36.3) 06/16/17 10:25 Total Bilirubin 1.00 mg/dL (0.2-1.0) 06/16/17 10:25 AST 13 U/L (13-39) 06/16/17 10:25 ALT 17 U/L (7-52) 06/16/17 10:25 Alkaline Phosphatase 70 U/L (34-104) 06/16/17 10:25 CK-MB (CK-2) 4.1 ng/mL (0.6-6.3) 06/16/17 10:25 Total Protein 7.2 g/dL (6.4-8.9) 06/16/17 10:25 Albumin 4.0 g/dL (3.2-5.2) 06/16/17 10:25 Globulin 3.2 g/dL (2-4) 06/16/17 10:25 Albumin/Globulin Ratio 1.3 (1-3) 06/16/17 10:25 ldl 06/2016 was 76 06/16/17 06/16/17 06/16/17 10:25 13:03 16:04 Troponin I 0.10 H* 0.11 H* 0.12 H* Diagnostic Imaging: echo - (07/2013) moderate concentric LVH, normal hyperdynamic LV function, mild relative hypokinesis at the base of the inferior wall 55-60%, Cardiac Catheterization - (06/28/2012) Cardiac Catheterization - 2012-Ostial/Proximal RCA 90%. Promus Element stent 3.0 x 16mm PD with a 3/5 NCB. Mid RCA 90%. Promus Element stent 3.0 x 12mm PD with a 3.0 NCB. Acute marginal lesion 99%. 2.75 x 8mm Promus Element stent. This was not post dilated due to the difficulty of the case. Distal RCA 90%. PD remaining stenosis essentially 50-60% with angioplasty only, and in an area that did not oil changer the course of the entire case. not intervention on the distal segment. 2002- [facility], with Stent placement. Assessment/Plan I had multiple prolonged discussion with patient regarding his presentation and abnormal troponin level. We discussed at length the risks and benefits of a cardiac catheterization with intent for revascularization vs. repeating a stress test. He strongly favors doing another stress test and if this is without significant changes continuing with medical therapy. We will continue home medications except reload with 300 mg of po plavix and continue home 75 mg for now. This can be considered to change to brillinta at some point. Also re- start prior imdur 60 mg. There are reports of myalgias in the past on 40 mg of lipitor but is tolerating this ok. Can be considered to change to 40 mg of crestor at some point. If no recurrent angina can stop heparin in the morning and proceed with a stress test tomorrow. We will exercise him to try to reproduce his symptoms with exercise and convert to a lexiscan if needed. Thank you for allowing me to participate in the cardiovascular care of this patient. Please do not hesitate to contact me with questions or concerns.
[2017-06-16] MEDS: buPROPion SR TAB.SR* 150 MG PO SCH (19:47)
[2017-06-16] MEDS: Insulin GLARGINE(*) 1 UNITS UNIT SUBCUT SCH (20:30)
[2017-06-16] MEDS ORDERED: Zolpidem TAB* 5 MG PO ONE (23:49)
--- NOTE | 2017-06-17 00:08 | HP ---
CC: Dr. Tarango * ADMISSION HISTORY AND PHYSICAL: DATE OF ADMISSION: 06/16/17 PRIMARY CARE PHYSICIAN: Dr. Roge Tarango. PRIMARY COURT OPERATIONS CLERK: Dr. Anthony Adorno. MY ATTENDING FOR TODAY: Dr. Aletha Douglas.* (DICTATED BY MARIZA SPENCER NP) CHIEF COMPLAINT: Chest pain with use of nitro overnight and this morning. HISTORY OF PRESENT ILLNESS: This is a very pleasant 52-year-old male patient, who has a history significant for coronary artery disease. The patient had CO in the past and stents with a STEMI in 2010. He also has history of diabetes, hypertension, gallbladder disease in the past, COPD, and history of smoking. The patient reports that last night, he had 7/10 chest pain. Basically, he has not had this kind of pain in about 2 years, which is the last time he had to take nitroglycerin. He took nitro at home with no relief. Came in to the emergency department to be evaluated. Pain was still 6/10. He received an additional nitro in the ER. Pain currently now is 2/10 and he is feeling more comfortable. Also, of note, is the patient said he experienced some shortness of breath while the chest pain was happening, but denied any diaphoresis. No nausea, no vomiting. No fevers or chills. No headache, no dizziness, and no further constitutional complaints. PAST MEDICAL HISTORY: As stated coronary artery disease, COPD, insulin- dependent diabetes mellitus, hyperlipidemia, myocardial infarction x2. PAST SURGICAL HISTORY: Stents placed in 2010 and cholecystectomy in 2015. HOME MEDICATIONS: Include: 1. Bupropion 150 mg 2 times a day. 2. Lipitor 40 mg daily. 3. Pantoprazole 40 mg daily. 4. Janumet , 2 times a day. 5. Isosorbide mononitrate 60 mg daily. 6. Diltiazem 240 mg daily. 7. Plavix 75 mg daily. 8. Baby aspirin 81 mg daily. 9. Albuterol inhaler 2 puffs every 4 hours as needed. 10. Lantus 55 units at night. 11. NovoLog sliding scale with meals. 12. Lisinopril 20 mg daily. 13. Fish oil 1000 mg 2 tablets daily. 14. Nitroglycerin 0.4 mg sublingual q.5 minutes as needed. ALLERGIES: No known drug allergies. FAMILY HISTORY: Both parents with coronary artery disease, both parents with diabetes, and all siblings with insulin-dependent diabetes mellitus. SOCIAL HISTORY: The patient had smoked for 30 years, quit approximately 8 months ago. REVIEW OF SYSTEMS: A 10-point review of systems is negative except as noted in the HPI. PHYSICAL EXAMINATION GENERAL: The patient is awake and alert, well appearing, well nourished, no acute distress. VITAL SIGNS: Currently, blood pressure 136/86, heart rate 82, respiratory rate 24, O2 saturation 98% on room air, temperature is 97.6. HEENT: The patient is atraumatic, normocephalic. PERRL with nonicteric sclerae. Extraocular movements are intact. NECK: Supple, nontender. No JVD noted. No carotid bruits auscultated. LUNGS: Clear bilaterally to auscultation with no wheezing, rhonchi, or rales appreciated. CARDIOVASCULAR: S1, S2 are present. Rate and rhythm are regular. He has regular sinus rhythm on tele with no ectopy. ABDOMEN: Soft, nontender, nondistended. Moderately obese. No organomegaly noted. : Deferred. MUSCULOSKELETAL: There is no clubbing, no cyanosis. He does not have any edema. He has gross motor and sensation intact. He has steady gait. NEUROLOGIC: Grossly intact with no focal deficits. PSYCHIATRIC: Cooperative and appropriate. DIAGNOSTIC STUDIES/LAB DATA: WBCs 9.0, RBCs 5.15, hemoglobin 15.6, hematocrit 45, platelets 267. Sodium 129, potassium 4.4, chloride 95, CO2 25, BUN 18, creatinine 0.86, GFR 93.0, glucose 262 venous, lactic acid 2.5, calcium 9.6, magnesium 1.7. Bilirubin 1.00, AST 13, ALT 17, alk phos 70. Myoglobin 22.3, CK- MB 4.1, total creatine kinase 72. Troponin 0.10. Protein 7.2, albumin of 4.0, globulin 3.2. INR 0.87. Chest x-ray dated, 06/16/17, shows no acute cardiopulmonary process. EKG also dated 06/16/17 shows sinus rhythm, probable left atrial enlargement and an old Q wave in leads II, III, and aVF, likely secondary to his inferior wall CO in the past. IMPRESSION: This is a 52-year-old male patient with a complex cardiac history, I think also complicated by some uncontrolled diabetes mellitus, who presents to the emergency department today with chest pain and an elevated troponin. PLAN: The patient will be admitted to observation. We will continue to trend his troponins. Again, the first one was 0.1. We will check this 2 more times to see if we can trend rise in troponins. He is having his second nitro in the ER right now and he is on Imdur; however, if he does not get any relief with this nitro, we may escalate to morphine 2 mg and see how he feels after that. In terms of additional cardiac imaging, I put a call out to Dr. Lodnon Qiu to see how much testing he wants to have done at this admission. The patient states that he had a negative stress test within last year approximately 8 to 10 months ago, he is not sure when. So, I do not know if it would be prudent to actually do a stress test at this point, but he said it has been many years since he has had a cardiac cath. So, again, we will be looking for direction from Cardiology as to whether he wants to do more invasive testing like a cardiac cath or not. So, we will continue his home medications. My concern at this point is that the Wellbutrin may be suppressing his sodium. So, we will put him on a fluid restriction for the next 24 hours and see if we can get the sodium up. We will continue him on his Lantus at night and place him on lispro sliding scale. Continue his statin, his PPI. We will hold oral antihyperglycemics. Continue his Imdur, his diltiazem, Plavix, and aspirin. He did have aspirin in the ER today. Also, continue his lisinopril. We will hold the fish oil and continue nitro as needed. We will place him on a consistent carb diet with no sugar for now until we hear from Cardiology about imaging. At that point, we may need to make him n.p.o., but for now, he can eat. DVT prophylaxis, will be with heparin 5000 q.8 hours. He is a full code. His medical healthcare proxy and emergency contact is his girlfriend, Julia Mariee. The patient states he will contact her and let her know that he is here; she does not know he is here yet. The rest of the patient 's course will be determined by further diagnostics, laboratories, and any other input from other providers as warranted during this admission. MARIZA SPENCER, PHARMACY TECHNOLOGY INSTRUCTOR [id number]/[facility] #: [id number] CHARITO
[2017-06-17 05:41] LABS: EGFR Non-African American 98.3 (>60)
[2017-06-17 05:51] LABS: ABS Basophils 0.1 10^3/ul (0-0.2); ABS Eosinophils 0.2 10^3/ul (0-0.6); ABS Lymphocytes 2.8 10^3/ul (1.0-4.8); ABS Monocytes 0.7 10^3/ul (0-0.8); ABS Neutrophils 4.3 10^3/ul (1.5-7.7); ABS Nucleated RBC 0 10^3/ul; Hematocrit 44 % (42-52); Hemoglobin 15.6 g/dl (14.0-18.0); Lymphocyte % 34.8 % (25-47); Mean Corpuscular HGB Conc 35 g/dl (31-36); Mean Corpuscular Hemoglobin 30 pg (27-31); Mean Corpuscular Volume 86 fL (80-94); Mean Platelet Volume 8 um3 (7.4-10.4); Nucleated Red Blood Cells % 0.1; Platelet Count 293 10^3/ul (150-450); Red Blood Count 5.12 10^6/ul (4.0-5.4); Red Cell Distribution Width 13 % (10.5-15)
[2017-06-17] MEDS: Insulin LISPRO* 1 UNITS UNIT SUBCUT SCH ×2 (08:26→12:05)
[2017-06-17] MEDS ORDERED: Aspirin EC Low Dose* 81 MG TAB.EC PO SCH (09:00)
[2017-06-17] MEDS ORDERED: Lisinopril TAB* 10 MG PO SCH (09:00)
[2017-06-17] MEDS ORDERED: Clopidogrel TAB* 75 MG PO SCH (09:00)
[2017-06-17] MEDS ORDERED: Diltiazem CD CAP* 240 MG PO SCH (09:00)
[2017-06-17] MEDS ORDERED: Isosorbide Mononitrate ER TAB* 60 MG PO SCH (09:00)
[2017-06-17] MEDS ORDERED: Atorvastatin* 40 MG TAB PO SCH (09:00)
[2017-06-17] MEDS ORDERED: CMC:Pantoprazole TAB (NF) 40 MG TAB PO SCH (09:00)
[2017-06-17] MEDS: buPROPion SR TAB.SR* 150 MG PO SCH (09:23)
[2017-06-17] MEDS: Insulin GLARGINE(*) 1 UNITS UNIT SUBCUT SCH (09:24)
[2017-06-17] MEDS: Heparin DRIP 25,000 UNITS(*) 25,000 UNITS/500 ML BAG IV SCH (10:31)
[2017-06-17] MEDS ORDERED: Regadenoson* 0.4 MG/5 ML SYRINGE ONE (12:40)
[2017-06-17] MEDS ORDERED: Aminophylline IV* 25 MG/ML 10 ML VIAL ONE (12:41)
--- NOTE | 2017-06-17 14:30 | RAD ---
INDICATION: Chest pain COMPARISON: May 13, 2015 TECHNIQUE: A single day SPECT protocol was utilized. Rest images were acquired following the intravenous injection of 10.5 millicuries of technetium 99m tetrofosmin. Exercise stress images were acquired following the intravenous administration of 25.1 millicuries of technetium 99m tetrofosmin. The patient was exercised to a peak heart rate of 137 which is 82% of age predicted maximum. FINDINGS: There are is a moderate sized inferior wall defect without definitive ischemic component. The cardiac chamber size is normal. There is mild diffuse hypokinesis The ejection fraction is depressed measuring 40 percent during stress. IMPRESSION: FIXED INFERIOR WALL DEFECT WITH DEPRESSED EJECTION FRACTION. LOW EXERCISE TOLERANCE MAY UNDERESTIMATE STRESS-INDUCED ISCHEMIA ASSESSMENT: INTERMEDIATE-RISK Based on imaging criteria from ACC/AHA 2002 Guideline Update for the Management of Patients With Chronic Stable Angina Table 23. Noninvasive Risk Stratification.
[2017-06-17 17:06] VITALS: BP 116/85
--- NOTE | 2017-06-18 14:38 | DS ---
CC: Dr. Tarango; Dr. Adorno * DISCHARGE SUMMARY: DATE OF ADMISSION: 06/16/17 DATE OF DISCHARGE: 06/17/17 HOSPITAL COURSE: This 52-year-old male presenting with chest pain, it started about 8:30 in the morning. He had gone to work, but had not actually done anything yet. The pain was unusual for him. He denied having any nitroglycerin with him. He came to the emergency room, he had a little relief with nitroglycerin. The pain may have lasted about an hour. He had no further chest pain in the hospital. He was admitted to a telemetry unit. He was started on heparin because his troponin was slightly above normal. His initial troponin was 0.10. It peaked at 0.18 and fell to 0.16 just before discharge. He had an exercise treadmill test. He had no angina on the treadmill or walking around the halls. There was a small area of inferior ischemia unchanged from 2015. He was seen in consultation by Dr. Cadena. He will continue on his usual medications. FINAL DIAGNOSES: 1. Atypical chest pain. 2. Coronary artery disease. 3. Diabetes. 4. Hyperlipidemia. 5. Chronic obstructive pulmonary disease. DISCHARGE MEDICATIONS: 1. Isosorbide mononitrate 60 mg daily. 2. Nitroglycerin 0.4 mg sublingual q. 5 minutes p.r.n. 3. Aspirin 81 mg daily. 4. Clopidogrel 75 mg daily. 5. NovoLog insulin as prescribed. 6. Albuterol 2 puffs every 4 hours p.r.n. 7. Glargine insulin as prescribed. 8. Lisinopril 20 mg daily. 9. Fish oil 1000 mg 2 daily. 10. Diltiazem 120 mg b.i.d. 11. Sitagliptin/metformin one tab b.i.d. 12. Bupropion SR 150 mg b.i.d. 13. Atorvastatin 40 mg daily. 14. Pantoprazole 40 mg daily. 15. Magnesium oxide 400 mg daily. [id number]/[facility] #: [id number] MTDD
== END 2017-06-17 17:30 | disposition home or self-care (01) ==
LOC: ED 10:03 → MEDTELE 12:12
PROVIDERS: ADMIT Hospitalist; ATTEND Internal Medicine
DX: R07.89 Other chest pain (principal); I25.119 Atherosclerotic heart disease of native coronary artery with unspecified angina pectoris; E11.9 Type 2 diabetes mellitus without complications; E78.5 Hyperlipidemia, unspecified; J44.9 Chronic obstructive pulmonary disease, unspecified; Z79.899 Other long term (current) drug therapy; Z79.4 Long term (current) use of insulin; Z87.891 Personal history of nicotine dependence; R94.31 Abnormal electrocardiogram [ECG] [EKG]
CPT/HCPCS: 36415; 71045; 78452; 80053; 80061; 82550; 82553; 82565; 82947; 83036; 83605; 83721; 83735; 83874; 84484; 84520; 85025; 85610; 85730; 93005; 93017; 96365; 96366; 96367; 99285; A9270-GY; A9502; G0378; J0280; J1644; J2785; J3475

== ENCOUNTER 2017-06-18 12:20 | Observation (INO) | payer OTHER ==
[2017-06-18] MEDS ORDERED: Aspirin 81 mg CHEW TAB* 81 MG TAB.CHEW PO ONE (12:34)
[2017-06-18] MEDS ORDERED: Nitroglycerin TAB 0.4 MG* 0.4 MG TAB SL ONE (12:34)
[2017-06-18] MEDS ORDERED: LORazepam INJ* 2 MG/ML 1 ML VIAL IV PUSH ONE (12:35)
[2017-06-18 13:01] LABS: ABS Basophils 0.1 10^3/ul (0-0.2); ABS Eosinophils 0.1 10^3/ul (0-0.6); ABS Lymphocytes 2.3 10^3/ul (1.0-4.8); ABS Monocytes 0.8 10^3/ul (0-0.8); ABS Nucleated RBC 0 10^3/ul; Eosinophil % 1.4 % (0-6); Hematocrit 44 % (42-52); Hemoglobin 15.4 g/dl (14.0-18.0); Lymphocyte % 24.5 % (25-47); Mean Corpuscular HGB Conc 35 g/dl (31-36); Mean Corpuscular Hemoglobin 30 pg (27-31); Mean Corpuscular Volume 88 fL (80-94); Mean Platelet Volume 8 um3 (7.4-10.4); Nucleated Red Blood Cells % 0.1; Platelet Count 293 10^3/ul (150-450); Red Blood Count 5.07 10^6/ul (4.0-5.4); Red Cell Distribution Width 13 % (10.5-15); White Blood Count 9.2 10^3/ul (3.5-10.8)
[2017-06-18 13:13] LABS: EGFR Non-African American 77.3 (>60)
--- NOTE | 2017-06-18 13:14 | RAD ---
HISTORY: Chest pain into back, evaluate for aneurysm COMPARISONS: August 19, 2015, June 23, 2015 TECHNIQUE: Multiple contiguous axial CT scans were obtained of the chest, abdomen, and pelvis, without intravenous contrast enhancement. Coronal and sagittal multiplanar reformations are submitted for review.. Oral contrast was not administered. FINDINGS: The study is limited by the lack of intravenous contrast. This limits evaluation of the solid organs and vasculature. Please note that this essentially precludes evaluation for aortic dissection. CHEST NECK AND THYROID: The lower neck and thyroid are unremarkable. CHEST WALL: There is no lower cervical, axillary, or supraclavicular lymphadenopathy by size criteria. HEART AND PERICARDIUM: Coronary and valvular cardiac calcifications are noted. AORTA AND PULMONARY VASCULATURE: The aorta and pulmonary vasculature are normal for technique. MEDIASTINUM: There is no mediastinal lymphadenopathy by size criteria. VAMSHI: Evaluation of the vamshi is limited by the lack of intravenous contrast. There is no obvious hilar lymphadenopathy by size criteria. AIRWAY AND ESOPHAGUS: The airway is unremarkable, without endobronchial filling defect. The esophagus is grossly normal. LUNG PARENCHYMA: The lungs are clear. PLEURA: No pleural abnormalities are noted. BONES AND SOFT TISSUES: No bone or soft tissue abnormalities are noted. ABDOMEN/PELVIS: LIVER: The liver is diffusely low in attenuation compared to the spleen. There are no focal hepatic parenchymal masses. The liver measures 21 cm in long axis. BILE DUCTS: There is no intrahepatic or extrahepatic biliary dilatation. GALLBLADDER: The gallbladder is not visualized. Surgical clips are noted in the gallbladder fossa. PANCREAS: The pancreas is normal, without mass or ductal dilatation. SPLEEN: Normal in size and appearance. UPPER GI TRACT: Evaluation of the gastrointestinal tract is limited by incomplete gastric distention. The upper GI tract is unremarkable. SMALL BOWEL & MESENTERY: The small bowel is normal in contour, course, and caliber. There is no obstruction or dilatation. COLON: The colon is normal in contour, course, caliber. There is no pericolonic inflammatory change. ADRENALS: Normal bilaterally. KIDNEYS: The kidneys are normal in shape, size, contour, and axis. There is no hydronephrosis or nephrolithiasis. BLADDER: The bladder is smooth in contour. PELVIC ORGANS: The prostate gland is normal. The seminal vesicles are symmetric. AORTA: There is calcific atherosclerotic disease of the abdominal aorta and its branches, without aneurysmal dilatation IVC: Unremarkable LYMPH NODES: There is no lymphadenopathy by size criteria. ABDOMINAL WALL: There is no evidence for abdominal wall hernia. BONES AND SOFT TISSUES: The bony skeleton is grossly unremarkable. OTHER: None IMPRESSION: 1. ATHEROSCLEROSIS. 2. NO AORTIC ANEURYSMAL DILATATION. 3. HEPATOMEGALY WITH FATTY INFILTRATION OF THE LIVER
[2017-06-18] MEDS ORDERED: NS 0.9% 1000 ML* 1,000 ML IV ONE (13:20)
--- NOTE | 2017-06-18 13:25 | RAD ---
Indication: Chest pain. Single frontal view of the chest performed at 1301 hours was reviewed. Comparison is made with previous exam dated June 16, 2017. No mediastinal shift is noted. Heart is of normal size and configuration. Lung mcgowan appear clear. IMPRESSION: NO ACTIVE CARDIOPULMONARY DISEASE IS NOTED.
[2017-06-18] MEDS ORDERED: Al Hydrox/Mg Hydrox/Simet LIQ* 30 ML UDC PO PRN (13:40)
[2017-06-18] MEDS ORDERED: Acetaminophen TAB* 325 MG PO PRN (13:40)
[2017-06-18] MEDS ORDERED: Albuterol HFA INHALER* 8 gm MDI INH PRN (13:42)
[2017-06-18] MEDS: Nitroglycerin TAB 0.4 MG* 0.4 MG TAB SL PRN ×2 (13:58→22:56)
[2017-06-18] MEDS ORDERED: Dextrose 50% Syringe 50 ML* 25 GM/50 ML SYRINGE IV PUSH PRN (14:52)
[2017-06-18] MEDS: Insulin LISPRO* 1 UNITS UNIT SUBCUT SCH ×2 (17:43→21:47)
[2017-06-18] MEDS ORDERED: Heparin DRIP 25,000 UNITS(*) 25,000 UNITS/500 ML BAG IV SCH (17:45)
[2017-06-18] MEDS: Heparin VIAL(*) 5000 UNITS/ML VIAL (FIVE THOUSAND) IV PRN (17:58)
[2017-06-18] MEDS: Metoprolol Tartrate TAB* 25 MG PO SCH ×2 (18:00→23:33)
[2017-06-18] MEDS: Atorvastatin* 80 MG TAB PO SCH (18:00)
[2017-06-18] MEDS ORDERED: Insulin GLARGINE(*) 1 UNITS UNIT SUBCUT SCH (20:00)
[2017-06-18] MEDS ORDERED: Diltiazem CD CAP* 120 MG PO SCH (21:00)
[2017-06-18] MEDS ORDERED: Metoprolol Tartrate TAB* 25 MG PO SCH (21:00)
--- NOTE | 2017-06-18 21:21 | HP ---
CC: Dr. Cadena * HISTORY AND PHYSICAL: DATE OF ADMISSION: 06/18/17 TIME OF ADMISSION: 2:30 p.m. THERMOPLASTIC TECHNICIAN: Dr. Adorno. PRIMARY CARE PHYSICIAN: Dr. Tarango. CHIEF COMPLAINT: Chest pain. HISTORY OF PRESENT ILLNESS: This is a 52-year-old man with history of coronary artery disease status post PCI in 2012, who presents 1 day after discharge with the return of chest pain. He was admitted on the with chest pain and was found to have a positive troponin that peaked at 0.18. During that admission, he had a stress test, which was found to be intermediate risk. Then, he had a discussion with Cardiology about whether a left heart cath should be pursued and after their discussion, he decided against pursuing a left heart cath and was discharged to home yesterday. He felt well last night and then this morning woke up and went to [employer] where he had 3-piece fried chicken and mashed potatoes and when he got into his car and started driving, he experienced 15/10 substernal chest pain without radiation. The pain lasted 1 hour and was unrelieved by nitroglycerin in the emergency department, but eventually went away on its own. Then approximately 20 minutes later, the chest pain returned and is reportedly in the middle of the chest without radiation and he has no associated nausea, diaphoresis, or shortness of breath. His pain does not come on with exertion and is not relieved by rest. PAST MEDICAL HISTORY: Coronary artery disease, status post PCI in 2002 and 2012 ; type 2 diabetes, on insulin; hypertension; GERD; hyperlipidemia. HOME MEDICATIONS: This is as per his discharge summary from 06/17/17. 1. Imdur 60 mg daily. 2. Nitroglycerin 0.4 q.5 minutes p.r.n. chest pain. 3. Aspirin 81 mg daily. 4. Plavix 75 mg daily. 5. NovoLog sliding scale with meals. 6. Albuterol 2 puffs inhaled q.4 p.r.n. 7. Lantus 56 units at night. 8. Lisinopril 20 mg daily. 9. [place]-3 fatty acid/fish oil 2 caps daily. 10. Diltiazem 120 mg twice daily. 11. Janumet once daily. 12. Bupropion 150 mg b.i.d. 13. Atorvastatin 40 mg daily. 14. Pantoprazole 40 mg daily. 15. Magnesium oxide 400 mg daily. FAMILY HISTORY: He does have history of coronary atherosclerosis, but no family history of early sudden cardiac . SOCIAL HISTORY: He quit smoking 8 months ago, but smoked a pack a day for approximately 30 years. He does not drink alcohol. 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 He lives with his . REVIEW OF SYSTEMS: He denies any recent fevers, cough, sore throat, shortness of breath, orthopnea, dyspnea on exertion, weight gain, diarrhea, nausea, or PND. PHYSICAL EXAMINATION GENERAL: Alert, well-appearing man, in no distress. He is able to speak in full sentences. VITAL SIGNS: Blood pressure 126/86, heart rate 82, pulse ox 97% on room air, temperature 98 degrees. HEENT: Pupils are equal, round, and reactive to light. No nystagmus. No conjunctival injection. No mucosal lesions. No pharyngeal exudates or erythema. NECK: No JVP. No cervical lymphadenopathy. LUNGS: Clear bilaterally. CHEST: Regular rate and rhythm. No murmurs. PMI is nondisplaced. ABDOMEN: Obese, soft, nontender, nondistended. No guarding or rebound. Liver is nonpalpable. EXTREMITIES: No edema. No ulcers. No rashes. NEUROLOGIC: Strength 5+ bilaterally. Alert and oriented x3. DIAGNOSTIC STUDIES/LAB DATA: Sodium 135, potassium 4.5, chloride 102, bicarb 23, glucose 192. Troponin 0.07. Lactate 3.1. EKG normal sinus rhythm at 90, normal axis, normal intervals. No ST or T-wave changes. Q-waves are present in III and aVF. Chest x-ray, no pulmonary edema. No effusion. No vascular congestion. ASSESSMENT AND PLAN: This is a 52-year-old male with history of coronary artery disease and gastroesophageal reflux disease, who presents with sudden onset of chest pain this morning after eating [employer]. 1. Atypical chest pain. His chest pain is not typical; however, given his longstanding history of diabetes, he may certainly have an atypical presentation of coronary disease, and given his recent intermediate risk stress test and non-ST elevation myocardial infarction 2 days ago, I am consulting Cardiology for reevaluation for consideration of a left heart catheterization. I will repeat 2 more troponins to trend his positive troponin of 0.07, which I suspect is continuing to trend down from his non-ST elevation myocardial infarction 2 days ago. I will monitor him on telemetry and keep him n.p.o. for possible left heart catheterization. Continue asa, plavix, imdur, add beta almita. Nitro now until he is chest pain free. 2. Insulin-dependent diabetes. Continue Lantus 56 units for now. We will cut this in half if he needs to be n.p.o. He also takes a sliding scale of NovoLog for meal times. I will put him on correction insulin. 3. Coronary artery disease. Continue aspirin, Plavix, atorvastatin, lisinopril. He is not on a beta-almita and it is unclear why not. I will start him on low dose metoprolol. 4. Gastroesophageal reflux disease. He already takes Protonix 40 mg daily at home. We will try Maalox p.r.n. for his chest discomfort to see if he has any relief with this. 5. DVT prophylaxis. Ambulatory, walk ad-mi. 6. Disposition. Admit to the hospitalist service with telemetry and consult Cardiology. [id number]/[facility] #: [id number] CHARITO
[2017-06-18] MEDS: buPROPion SR TAB.SR* 150 MG PO SCH (21:46)
--- NOTE | 2017-06-18 22:46 | CONS ---
CC: Dr. Tarango; Dr. Adorno * INTERVENTIONAL CARDIOLOGY CONSULT NOTE: DATE OF CONSULT: 06/18/17 PRIMARY CARE PHYSICIAN: Dr. Tarango. DELIVERY TECH: Dr. Adorno. HISTORY OF PRESENT ILLNESS: A 52-year-old [place] male, diabetic, hypertensive with hyperlipidemia, and premature coronary disease admitted with prolonged ischemic chest pain. I reviewed his [facility] records. He had an TX in 2004 with small troponin rise , received a stent in his circumflex posterolateral in [place]. We do not have further details. Apparently, he had diffuse coronary ectasia at that time. He presented here with non-ST elevation infarct in 2012, had catheterization by Dr. Desir with extensive ectasia suggestive of previous Kawasaki. He has no history of childhood febrile illness. He grew up in [place], had limited healthcare. Catheterization by Dr. Desir described numerous significant stenoses in the RCA, which was very tortuous and angulated with a prominent rivera's crook takeoff. The procedure was technically difficult with poor backup through the femoral approach. He received a 3 x 16 drug-eluting stent at the proximal RCA, post dilated to 3.5 mm, the mid RCA received a 3 x 12 drug- eluting stent, at the acute margin he received a 2.75 x 18 drug-eluting stent, and finally had POBA of the very distal RCA because the stent could apparently not be delivered. LV gram then was reported as showing normal wall motion with EF of 60%. Nuclear imaging in 2015 showed a small area of inferior wall ischemia. He was admitted here 2 days ago, on 06/16/17, with prolonged episode of chest discomfort lasting 1 to 2 hours, troponin peaked at 0.18. EKG on admission showed Q-wave in aVF, new since 2017. He had a nuclear stress study, which showed an inferior fixed defect with EF of 40% with extensive motion artifact during the study. However, on the gated cine images, inferior wall motion was normal except for perhaps a very small area of hypokinesis at the inferior apex. He was treated medically, discharged on his same medical regimen. He returned today because of another prolonged episode of chest discomfort lasting about 1 to 2 hours, occurring at rest, now resolved. Today's episode was worse than the one 2 days ago. He has longstanding diabetes type 2 with hemoglobin A1c of 8.5 two days ago. He is also hyperlipidemic, but tells me he has been off his Lipitor for the past 6 months, just re-started it after his last admission. Cholesterol yesterday was 168 with triglycerides of 352, LDL 81, HDL 27.5. PAST MEDICAL HISTORY: Diabetes type 2, poorly controlled; hyperlipidemia, off statins per history for the past 6 months; hypertension; obesity. MEDICATIONS: Pre-hospital medications same as at his last discharge, namely: 1. Isosorbide mononitrate 60 mg daily. 2. P.r.n. nitroglycerin. 3. Aspirin 81 daily. 4. Plavix 75 daily. He has never been on Brilinta. 5. NovoLog. 6. Albuterol. 7. Glargine insulin. 8. Lisinopril 20 daily. 9. Fish oil 1 g b.i.d. 10. Cardizem 120 mg b.i.d. 11. Sitagliptin metformin b.i.d. 12. Wellbutrin 150 b.i.d. 13. Lipitor 40 daily. 14. Protonix 40 daily. 15. Magnesium 40 mg daily. ALLERGIES: None to medications. FAMILY HISTORY: Positive for premature coronary artery disease. SOCIAL HISTORY: He stopped smoking 8 months ago. He relates that each time he tried to quit 8 months ago, he would have what sounds like rest angina with accompanying PND, which resolved when he resumed smoking until he started using Wellbutrin and was able to stop smoking. He denies any interim symptoms between 8 months ago and 06/16/17 when he was admitted with his non-ST elevation infarct. REVIEW OF SYSTEMS: He denies any weight change. 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 GI: No history of peptic ulcer disease or bleeding. Heme: No history of malignancy or anemia. Remainder all negative. PHYSICAL EXAM: He is pain free. He is obese. Blood pressure 159/95 in the ER , heart rate 80s to 90s. He denies any history of issues with beta-blockers, was on beta-blockers back in the early 1999s. His lungs are clear to percussion and auscultation. Neck: JVP is normal as are carotids. He has no bruits. HEENT is unremarkable without xanthelasma, scleral injection or jaundice. EOMs are normal. Cranial nerves intact. Cardiac Exam: Heart rate is regular. No gallop, no murmur, no rub. [place] not palpable. RV not palpable. Abdomen is obese, nontender, no bruit. I cannot feel the aorta. Radial, femoral, and pedal pulses are palpable. He has no cyanosis, clubbing, or edema. Skin is warm and perfused. Psych: He is oriented and appropriate. DIAGNOSTIC STUDIES/LAB DATA: EKG unchanged from yesterday with again Q wave in aVF and nonspecific ST changes. Troponin is 0.07. Creatinine 1.01. Random blood sugar 192. Lactate 3.1. Anion gap is normal. IMPRESSION: Post myocardial infarction, unstable angina. He had a non-ST elevation infarct 2 days ago, has failed medical therapy. Imaging showed an inferior defect with some reversibility; however, wall motion at least on the gated nuclear images shows preserved inferior wall motion suggesting high-grade ischemia rather than infarct. He has multiple comorbidities. He has no recollection of being on beta-blockers. He is on Cardizem. I will switch him back to beta- almita. He has by history not been on his Lipitor for the past 6 months except for resuming few days ago. I am increasing it to 80 mg daily. He is on low dose fish oil for his hypertriglyceridemia. His diabetes is poorly controlled. He reports no change in his insulin regimen for quite sometime. He also reports running Accu-Cheks in the 150 to 160s every evening. 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 Depending on findings at cath, he may be a candidate for further revascularization percutaneously. Thanks for the consult. I will follow with you as needed. [id number]/[facility] #: [id number] [facility] NETWORKCasi
[2017-06-18] MEDS ORDERED: Zolpidem TAB* 5 MG PO PRN (22:52)
[2017-06-19] MEDS: Heparin VIAL(*) 5000 UNITS/ML VIAL (FIVE THOUSAND) IV PRN (02:52)
[2017-06-19 06:01] LABS: ABS Basophils 0.1 10^3/ul (0-0.2); ABS Eosinophils 0.2 10^3/ul (0-0.6); ABS Lymphocytes 2.7 10^3/ul (1.0-4.8); ABS Monocytes 0.7 10^3/ul (0-0.8); ABS Neutrophils 4.7 10^3/ul (1.5-7.7); ABS Nucleated RBC 0 10^3/ul; Eosinophil % 2.1 % (0-6); Hematocrit 41 % (42-52); Hemoglobin 13.9 g/dl (14.0-18.0); Lymphocyte % 32.2 % (25-47); Mean Corpuscular HGB Conc 34 g/dl (31-36); Mean Corpuscular Hemoglobin 30 pg (27-31); Mean Corpuscular Volume 87 fL (80-94); Mean Platelet Volume 7 um3 (7.4-10.4); Nucleated Red Blood Cells % 0.1; Platelet Count 248 10^3/ul (150-450); Red Blood Count 4.64 10^6/ul (4.0-5.4); Red Cell Distribution Width 13 % (10.5-15); White Blood Count 8.2 10^3/ul (3.5-10.8)
[2017-06-19 06:15] LABS: EGFR Non-African American 87.2 (>60)
[2017-06-19] MEDS: Metoprolol Tartrate TAB* 25 MG PO SCH (06:42)
[2017-06-19] MEDS ORDERED: NS 0.9% 1000 ML* 1,000 ML IV SCH ×2 (07:00→10:30)
[2017-06-19] MEDS: buPROPion SR TAB.SR* 150 MG PO SCH (07:41)
[2017-06-19] MEDS: Atorvastatin* 80 MG TAB PO SCH (07:42)
[2017-06-19 07:47] VITALS: BP 150/92
[2017-06-19] MEDS: Insulin LISPRO* 1 UNITS UNIT SUBCUT SCH (08:08)
[2017-06-19] MEDS ORDERED: Heparin 2 UNITS/ML IVPREMIX* 2,000 ML IV ONE (08:46)
[2017-06-19] MEDS ORDERED: Lidocaine 1% INJ* 10 MG/ML 30 ML SDV ONE (08:46)
[2017-06-19] MEDS ORDERED: Iohexol 350 (CONTRAST) 200 ML MDV IV ONE (08:46)
[2017-06-19] MEDS ORDERED: Lisinopril TAB* 10 MG PO SCH (09:00)
[2017-06-19] MEDS ORDERED: Aspirin EC TAB* 81 MG TAB.EC PO SCH (09:00)
[2017-06-19] MEDS ORDERED: Magnesium Oxide TAB* 400 MG PO SCH (09:00)
[2017-06-19] MEDS ORDERED: Midazolam* 1 MG/ML 10 ML VIAL (10 MG) ONE (09:00)
[2017-06-19] MEDS ORDERED: Clopidogrel TAB* 75 MG PO SCH (09:00)
[2017-06-19] MEDS ORDERED: Isosorbide Mononitrate ER TAB* 60 MG PO SCH (09:00)
[2017-06-19] MEDS ORDERED: Atorvastatin* 40 MG TAB PO SCH (09:00)
[2017-06-19] MEDS ORDERED: fentaNYL* 50 MCG/ML 2 ML VIAL (100 MCG VIAL) ONE (09:00)
[2017-06-19] MEDS ORDERED: CMC:Pantoprazole TAB (NF) 40 MG TAB PO SCH (09:00)
[2017-06-19] MEDS ORDERED: Atropine SYRINGE* 0.1 MG/ML 10 ML SYRINGE (1 MG) ONE (09:27)
[2017-06-19] MEDS ORDERED: Heparin DRIP 25,000 UNITS(*) 25,000 UNITS/500 ML BAG IV SCH (10:30)
[2017-06-19] MEDS ORDERED: Heparin DRIP 25,000 UNITS(*) 25,000 UNITS/500 ML BAG ONE (10:36)
--- NOTE | 2017-06-20 08:17 | CATH ---
CC: Dr. Tarango; Dr. Adorno CATH REPORT: DATE OF PROCEDURE: 06/19/17 PRIMARY CARE PHYSICIAN: Dr. Tarango. FACTORY ENGINEER: Dr. Adorno. PROCEDURE: Right common femoral artery access, Angio-Seal right common femoral artery, bilateral nunu ective coronary cineangiography, left heart catheterization. HISTORY: A 52-year-old obese, diabetic, hypertensive, hyperlipidemic male with early onset coronary disease, undergoing catheterization for non-ST elevation infarct. He had an infarct in 2002, had a circumflex posterolateral stent placed. 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 LV function was normal at 60 with normal wall motion. He received 3 stents in th e RCA. He was then admitted here on 06/16/17 with a non-ST elevation infarct, was tried on medical m anagement, but failed with recurrence of chest pain and was readmitted yesterday. He again has a sma ll troponin rise. He has not received Brilinta or Effient, last dose of Plavix was at 0741 hours thi s morning. Recent stress imaging showed EF of 40% with a small inferior wall area of ischemia. PROCEDURE ACCESS: Right common femoral artery sheath 6F. MEDICATIONS: 1. Subcu lidocaine. 2. IV Versed. 3. IV fentanyl. 4. IV heparin drip was turned off 2 hours pre-cath and restarted post-cath. DIAGNOSTIC CATHETERS: 6FL4, 6FL3.5. The 6FR4 was used to measure LV pressure. HEMODYNAMICS: Initial BP 145/98. LV post coronary angiography 140/13-22, no aortic valve gradient o n pullback. ANGIOGRAPHY: He was asymptomatic throughout the case. Initial engagement of the left main was witho ut dampening, subsequently pressure became dampened, resolved with readjustment of the diagnostic cat heter tip. Left Main: The left main is relatively long, has mid mild stenosis, has distal probable ulceration, on particularly NANCY views, there is a local dissection within the left main with possibly thrombus, i t has normal flow. LAD: The LAD has severe proximal ectasia, there is a small diagonal branch which is occluded. Mid L AD beyond the diagonal has a 50% stenosis and then a 30% stenosis. 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 Circumflex: The circumflex is large, not dominant, retroflexed, has several areas of aneurysm format ion. The first marginal has a luminal irregularity, the second marginal has 60% stenosis, the meterman olateral has a 90% stenosis, is the probable culprit. There is faint left to right collateral fillin g of the very distal RCA, which is very underfilled. RCA: The RCA is large, very ectatic with several aneurysms, it has a proximal tubular 80% stenosis f ollowed by a 90% mid stenosis, the PDA is small with a 90% mid stenosis, the PDA proper is probably t oo small to bypass. The RCA continuation beyond the PDA consist of a hair sized posterolateral with high-grade stenosis and competitive flow. RFA sheath entry is in segment 2, there is no stenosis. CONCLUSION: 1. Significant left main and three-vessel disease. He will be referred for bypass grafting. 2. LV systolic dysfunction by recent stress imaging study with LVEF of 40%. 3. Successful Angeo-Seal right common femoral artery. 4. 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 [id number]/[facility] #: [id number]
--- NOTE | 2017-06-20 08:43 | DS ---
CC: Dr. Cantu; Dr. Adorno; Dr. Tarango * DISCHARGE SUMMARY: DATE OF ADMISSION: 06/18/17 DATE OF DISCHARGE: 06/19/17 DISPOSITION: Transported to [facility] for cardiothoracic surgery evaluation. PRINCIPAL DISCHARGE DIAGNOSES: 1. Multivessel coronary artery disease including left main. 2. Unstable angina. SECONDARY DISCHARGE DIAGNOSES: 1. Type 2 diabetes. 2. Hypertension. 3. Hyperlipidemia. 4. Gastroesophageal reflux disease. BRIEF HOSPITAL COURSE BY PROBLEM: 1. Unstable angina. Mr. Dasilva was admitted on 06/18/17 with chest pain that occurred after eating a fried chicken. He did have an atypical presentation of chest pain, however, had just had an intermediate stress test completed on June 17. He was admitted at that time, several days prior, for chest pain as well; however, after his stress test returned as intermediate risk at that time, cardiology discussed pursuing a left heart cath with him and ultimately it was decided to treat him with medical management. However, after he went home on 06/17, he returned to the emergency department today, one day later, with ongoing and worse chest pain, so we classified this as unstable angina and started him on a heparin drip and I consulted Cardiology again for reconsideration of a left heart cath. He underwent left heart catheterization on the morning of 06/19/17, which revealed multivessel coronary disease including left main disease. Based on these findings, Dr. Cantu has discussed his case with Cardiothoracic Surgery at [facility] and he will be transferred there for evaluation for CABG. Regarding his medical optimization, he will be continued on a heparin drip. He has been receiving aspirin and Plavix and his last doses were this morning 06/19/17. These will be held from here on out in anticipation of a possible CABG. A beta-almita was added on this admission and he has continued on Imdur, high potency statin, and nitroglycerin sublingual as needed and lisinopril 20 mg daily. 2. Type 2 diabetes. I am holding his Janumet and continuing Lantus 56 units nightly and NovoLog sliding scale with meals. 3. Hyperlipidemia. Continue high potency statin as above. 4. GERD. Continue Protonix 40 mg daily. 5. Disposition. Transferred to [facility] for cardiothoracic surgery evaluation. [id number]/[facility] #: [id number] [facility]
--- NOTE | 2017-06-22 13:34 | ED ---
Adriana Gutierrez Gabriel, scribed for Mickey Ramires MD on 06/18/17 at 1229 . HPI Chest Pain - HPI Summary HPI Summary: This patient is a 52 year old M presenting to [facility] with a chief complaint of CP that began an hour ago while driving. The patient rates the squeezing pain 10 /10 in severity and states it radiates into his back. Patient reports SOB and numbness in LUE. Patient denies cough. Pt left hospital last night after two days of admittance. He had stress test yesterday with 2 CTs. Took baby ASA this morning. Hx 2 MIs, 4 stents, DM, HTN, and HLD.. - History of Current Complaint Chief Complaint: EDChestPainROMI Time Seen by Provider: 06/18/17 12:26 Hx Obtained From: Patient Onset/Duration: Started Hours Ago - 1, Still Present Timing: Constant Initial Severity: Severe Current Severity: Severe Pain Intensity: 8 Pain Scale Used: 0-10 Numeric Chest Pain Location: Mid Sternal Chest Pain Radiates: Yes Chest Pain Radiates To:: Back Character: Pressure/Squeezing Associated Signs and Symptoms: Positive: Shortness of Breath, Other: - numbness in LUE - Additional Pertinent History Primary Care Physician: [id number] - Allergy/Home Medications Allergies/Adverse Reactions: Allergies Allergy/AdvReac Type Severity Reaction Status Date / Time No Known Allergies Allergy Verified 01/17/17 09:14 Home Medications: Home Medications Magnesium Oxide TAB* [MagOx 400 TAB*] 400 mg PO DAILY 06/18/17 [History Confirmed 06/18/17] PMH/Surg Hx/FS Hx/Imm Hx Endocrine/Hematology History: Reports: Hx Diabetes Denies: Hx Thyroid Disease Cardiovascular History: Reports: Hx Angina, Hx Coronary Artery Disease, Hx Hypercholesterolemia, Hx Hypertension, Hx Myocardial Infarction, Other Cardiovascular Problems/Disorders - HYPERLIPIDEMIA Denies: Hx Congestive Heart Failure, Hx Pacemaker/ICD, Hx Valvular Heart Disease Respiratory History: Denies: Hx Asthma, Hx Chronic Obstructive Pulmonary Disease (COPD) GI History: Reports: Hx Gall Bladder Disease, Other GI Disorders - rody Denies: Hx Gastroesophageal Reflux Disease, Hx Ulcer History: Denies: Hx Renal Disease Musculoskeletal History: Denies: Hx Arthritis Sensory History: Reports: Hx Contacts or Glasses - GLASSES Denies: Hx Hearing Aid Opthamlomology History: Reports: Hx Contacts or Glasses - GLASSES Neurological History: Denies: Hx Migraine, Hx Transient Ischemic Attacks (TIA) Psychiatric History: Denies: Hx Panic Disorder - Cancer History Cancer Type, Location and Year: cardiac bypass surgery 2009, 2011 - Surgical History Surgery Procedure, Year, and Place: Stent to LAD 2001. CARDIAC STENTS PLACED 1 2001, 1 STENT 2010. 12/2015 LAPAROSCOPIC CHOLEYCECTOMY Hx Anesthesia Reactions: No Infectious Disease History: No Infectious Disease History: Denies: Hx Clostridium Difficile, Hx Hepatitis, Hx Human Immunodeficiency Virus (HIV), Hx of Known/Suspected MRSA, Hx Shingles, Hx Tuberculosis, Hx Known/ Suspected VRE, Hx Known/Suspected VRSA, History Other Infectious Disease, Traveled Outside the [place] in Last 30 Days - Family History Known Family History: Positive: None, Hypertension - Social History Alcohol Use: None Substance Use Type: Reports: None Hx Tobacco Use: Yes Smoking Status (MU): Former Smoker Type: Cigarettes Amount Used/How Often: 1 pck per day Length of Time of Smoking/Using Tobacco: quit 8 months ago Have You Smoked in the Last Year: Yes - "a cigarette if I'm very stressed". Review of Systems Negative: Fever, Chills Negative: Sore Throat Positive: Chest Pain Positive: Shortness Of Breath. Negative: Cough Negative: Abdominal Pain, Vomiting, Nausea Negative: dysuria, hematuria Negative: Myalgia, Edema Negative: Rash Neurological: Negative - dizziness Positive: Numbness - LUE All Other Systems Reviewed And Are Negative: Yes Physical Exam - Summary Physical Exam Summary: Constitutional: Well-developed, Well-nourished, Alert. (-) Distressed Skin: Warm, Dry HENT: Normocephalic; Atraumatic Eyes: Conjunctiva normal Neck: Musculoskeletal ROM normal neck. (-) JVD, (-) Stridor, (-) Tracheal deviation Cardio: Rhythm regular, rate normal, Heart sounds normal; Intact distal pulses; The pedal pulses are 2+ and symmetric. Radial pulses are 2+ and symmetric. (-) Murmur Pulmonary/Chest wall: Effort normal. (-) Respiratory distress, (-) Wheezes, (-) Rales Abd: Soft, (-) Tenderness, (-) Distension, (-) Guarding, (-) Rebound Musculoskeletal: (-) Edema Lymph: (-) Cervical adenopathy Neuro: Alert, Oriented x3 Psych: anxious appearing Triage Information Reviewed: Yes Vital Signs On Initial Exam: Initial Vitals Temp Pulse Resp BP Pulse Ox 98 F 97 17 159/95 98 06/18/17 12:23 06/18/17 12:23 06/18/17 12:23 06/18/17 12:23 06/18/17 12:23 Vital Signs Reviewed: Yes Diagnostics - Vital Signs Vital Signs Temp Pulse Resp BP Pulse Ox 06/18/17 12:23 98 F 97 17 159/95 98 - Laboratory Result Diagrams: 06/18/17 12:35 06/18/17 12:35 Lab Statement: Any lab studies that have been ordered have been reviewed, and results considered in the medical decision making process. - Radiology CXR Radiology Interpretation Completed By: Radiologist - NO ACTIVE CARDIOPULMONARY DISEASE IS NOTED. ED physician has reviewed this radiology report. - CT CT ABD/Pelvis/Chest CT Interpretation Completed By: Radiologist - ATHEROSCLEROSIS. 2. NO AORTIC ANEURYSMAL DILATATION. 3. HEPATOMEGALY WITH FATTY INFILTRATION OF THE LIVER ED physician has reviewed this radiology report. - EKG 12:30 Cardiac Rate: NL EKG Rhythm: Sinus Rhythm - at 90 BPM EKG Interpretation: No STEMI Chest Pain Course/Dx - Course Assessment/Plan: This patient is a 52 year old M presenting to [facility] with a chief complaint of CP that began an hour ago while driving. The patient rates the squeezing pain 10/10 in severity and states it radiates into his back. Patient reports SOB and numbness in LUE. Patient denies cough. Pt left hospital last night after two days of admittance. He had stress test yesterday with [address] s. Took baby ASA this morning. Hx 2 MIs, 4 stents, DM, HTN, and HLD. An EKG reveals NSR. CT chest/ABD/Pelvis reveals, per radiologist, . ATHEROSCLEROSIS. 2. NO AORTIC ANEURYSMAL DILATATION. 3. HEPATOMEGALY WITH FATTY INFILTRATION OF THE LIVER. CXR reveals, per radiologist, NO ACTIVE CARDIOPULMONARY DISEASE IS NOTED. Test results with no significant abnormalities except for a troponin of 0.07, a lactic acid of 3.1, and a glucose of 192. In the ED course the patient was given ASA, IV fluids, NTG, and Ativan. We discussed patient care with Dr. Mccall and they accept the patient for admission. Patient will be admitted for chest pain unspecified and an elevated troponin. The patient is agreeable with this plan. - Diagnoses Provider Diagnoses: Chest pain, unspecified, Elevated troponin - Provider Notifications Discussed Care Of Patient With: Leyda Mccall Time Discussed With Above Provider: 14:00 Instructed by Provider To: Admit As Inpatient Discharge - Sign-Out/Discharge Documenting (check all that apply): Discharge - Discharge Plan Condition: Fair Disposition: ADMITTED TO [facility] The documentation as recorded by the Adriana pemberton Gabriel accurately reflects the service I personally performed and the decisions made by , Mickey Ramires MD.
== END 2017-06-19 11:30 | disposition short-term general hospital (02) ==
LOC: ED 12:20 → MEDTELE 13:40
PROVIDERS: ADMIT Internal Medicine; ATTEND Internal Medicine
DX: I25.118 Atherosclerotic heart disease of native coronary artery with other forms of angina pectoris (principal); I21.4 Non-ST elevation (NSTEMI) myocardial infarction; E11.9 Type 2 diabetes mellitus without complications; I23.7 Postinfarction angina; I25.2 Old myocardial infarction; I10 Essential (primary) hypertension; E78.5 Hyperlipidemia, unspecified; K21.9 Gastro-esophageal reflux disease without esophagitis; Z79.82 Long term (current) use of aspirin; R07.9 Chest pain, unspecified; I70.90 Unspecified atherosclerosis; E66.9 Obesity, unspecified; Z87.891 Personal history of nicotine dependence; Z95.5 Presence of coronary angioplasty implant and graft
CPT/HCPCS: 36415; 71045; 71250; 74176; 80053; 82565; 82947; 83605; 83690; 84484; 84520; 85025; 85730; 93005; 93458; 96374; 99156; 99157; 99283; A9270-GY; C1760; G0378; J0461; J1644; J2060; J2250; J3010

== ENCOUNTER 2017-12-29 14:49 | Emergency (ER) | payer OTHER ==
--- OUTSIDE RECORDS SUMMARY | 2017-12-29 14:54 | XMS REPORT ---
:1965 External Reference #:[id number] Author Organization [employer] Address [address] [place] [address] Phone [phone] Care Team Providers Name Role Phone Roge Tarango MD Primary Care Physician Unavailable Payers Type Date Identification Numbers Payment Provider Subscriber Commercial Policy Number: [id number] Herson Dasilva Group Number: [id number] [address] PayID: [id number] [place] [address] Problems Date Description Provider Status Onset: 07/10/2012 Acute subendocardial infarction Debbie Desir D.O. Active Onset: 08/26/2012 Coronary arteriosclerosis Debbie Desir D.O. Active Onset: 02/24/2013 Hyperlipidemia Debbie Desir D.O. Active Onset: 07/28/2013 Type 2 diabetes mellitus Anthony Adorno M.D. Active Onset: 07/28/2013 Chronic ischemic heart disease Anthony Adorno M.D. Active Onset: 07/28/2013 Essential hypertension Anthony Adorno M.D. Active Onset: 07/28/2013 Sleep disorder Anthony Adorno M.D. Active Onset: 07/28/2013 Gastroesophageal reflux disease Anthony Adorno M.D. Active Onset: 07/28/2013 Impotence of organic origin Anthony Adorno M.D. Active Onset: 08/10/2013 Chronic diastolic heart failure [place] [facility] Schedule Active Onset: 08/17/2013 ROCAEL Haynes Active Family History Date Family Member(s) Problem(s) Comments Children 2 girls. 12 & 15 in good health. Siblings 3 sisters, 1 brother. One brother . All others have diabetes. 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 Mauser, every M.D. day Lisinopril 07/11/ Active Tablets 5mg 90tabs 1 by Anthony 2017 mouth F. Mauser, every M.D. day Cartia XT 11/17/ Active Caps ER 24HR 120mg 180cap 1 po qd I10 Anthony 2015 s Mahendra Adorno M.D. Pantoprazole 07/28/ Active Tablets DR 40mg 30tabs take one Anthony Sodium 2013 tablet F. Kyree, by mouth M.DTracy every day Aspirin DR 07/10/ Active Tablets DR 81mg 1 po qd Other 2012 Ordering Provider Novolin 70/30 07/10/ Active Suspension (70-30)100 30unit per Other 2012 Unit/ML s scale Ordering Provider Janumet 07/10/ Active Tablets 50-1000mg 60tabs 1 po bid Other 2012 Ordering Provider Plavix 06/28/ Active Tablets 75mg 90tabs 1 by Anthony 2012 mouth F. Chichiuser, every M.D. day Fish Oil / Active Capsules 1000mg 1 by Unknown 0000 mouth every day Bupropion HCL / Active Tablets ER 150mg 1 by Rock, ER (SR) 0000 12HR mouth dalton Guan MD day Metoprolol / Active Tablets 25mg 180tab 1 by Anthony Tartrate 0000 s mouth F. Mauser, twice a M.D. day Atorvastatin 11/11/ Hx Tablets 40mg 1 by Anthony Calcium 2017 - mouth F. Mauser, 11/12/ every M.D. 2017 day Atorvastatin 02/18/ Hx Tablets 10mg 30tabs 1 by Anthony Calcium 2016 - mouth F. Mauser, 11/10/ every M.D. 2017 day Amlodipine 08/15/ Hx Tablets 2.5mg 60tabs 2 by I10 Anthony Besylate 2015 - mouth F. Mauser, 11/17/ every M.D. 2016 day Magnesium 03/08/ Hx Tablets 400mg 90tabs 2 by Anthony Oxide 2014 - mouth F. Mauser, 07/10/ every M.D. 2017 day Imdur 02/18/ Hx Tablets ER 60mg 90tabs 1 by Anthony 2013 - 24HR mouth F. Mauser, 02/18/ every M.D. 2016 day Nitrostat 10/21/ Hx Tablets Sub 0.4mg 25tabs one sl Anthony 2013 - q5min up F. Mauser, 07/10/ to 3 M.D. 2018 doses as needed Toprol XL 08/19/ Hx Tablets ER 25mg 60tabs 1/2 by Anthony 2013 - 24HR mouth F. Mauser, 09/29/ every M.D. 2013 day Cartia XT 08/19/ Hx Caps ER 24HR 120mg 180cap 2 by Anthony 2013 - s mouth F. Mauser, 08/29/ every M.D. 2015 day Hold as of 5.17.16 Toprol XL 08/12/ Hx Tablets ER 50mg 100tab 1/2 by Anthony 2013 - 24HR s mouth F. Mauser, 08/19/ every M.D. 2013 day Cartia XT 07/28/ Hx Caps ER 24HR 120mg 30caps 1 by Anthony 2013 - mouth F. Mauser, 08/19/ every M.D. 2013 day Toprol XL 07/28/ Hx Tablets ER 50mg 30tabs 1 by Anthony 2013 - 24HR mouth F. Mauser, 08/12/ every M.D. 2013 day Atorvastatin 02/24/ Hx Tablets 40mg 90tabs 1/2 tab Anthony Calcium 2013 - by mouth F. Mauser, 03/07/ every M.D. 2015 day Atorvastatin 08/26/ Hx Tablets 40mg 90tabs 1 po qd Debbie Calcium 2012 - Desir, 02/24/ D.O. 2012 Simvastatin 07/10/ Hx Tablets 40mg 90tabs 1 po qhs Other 2013 - Ordering 07/10/ Provider 2013 Atorvastatin 07/10/ Hx Tablets 20mg 90tabs take 1 Other Calcium 2013 - tablet Ordering 08/26/ at Provider 2013 bedtime Imdur 07/10/ Hx Tablets ER 30mg 90tabs 1 by Anthony 2012 - 24HR mouth F. Mausekerline, 02/18/ every M.D. 2013 day Toprol XL 07/10/ Hx Tablets ER 50mg 60tabs 1 by Anthony 2012 - 24HR mouth F. Mauser, 07/28/ twice a M.D. 2013 day Carvedilol 03/10/ Hx Tablets 25mg 180tab 1 po bid Jose D Verde 2011 - s Luis, 07/10/ M.D., [address] [facility] Lisinopril 03/10/ Hx Tablets 20mg 30tabs take one Anthony 2011 - tablet F. Kyree, 07/11/ by mouth M.D. 2017 day Livalo / Hx Tablets 1mg 90tabs 1 by Unknown 0000 - mouth 02/17/ every 2016 day Medications Administered in Office Medication Date Status Form Strength Qnty SIG Indications Ordering Provider Depomedrol Administered Injection Debbie 40MG Harish Franklin M.D. Vital Signs Date Vital Result Comment 12/10/2017 Height 69 inches 5'9" Weight 211.25 lb with shoes Heart Rate 72 /min BP Systolic Sitting 130 mmHg Rue reg cuff BP Diastolic Sitting 88 mmHg Rue reg cuff BP Systolic Standing 130 mmHg Rue reg cuff BP Diastolic Standing 90 mmHg Rue reg cuff Respiratory Rate 16 /min BMI (Body Mass Index) 31.2 kg/m2 09/11/2017 Height 69 inches Weight 216.25 lb w/shoes Heart Rate 76 /min BP Systolic Sitting 128 mmHg ;ue reg cuff BP Diastolic Sitting 78 mmHg ;ue reg cuff BMI (Body Mass Index) 31.9 kg/m2 Ejection Fraction 55-60% echo 08/10/2013 07/11/2017 Height 69 inches 5'9" Weight 208.50 lb w/shoes Heart Rate 68 /min BP Systolic Sitting 110 mmHg L/A reg cuff BP Diastolic Sitting 72 mmHg L/A reg cuff BMI (Body Mass Index) 30.8 kg/m2 Ejection Fraction 40% Stress Test 06/17/2017 02/18/2017 Height 69 inches 5'9" Weight 207.38 lb with shoes Heart Rate 72 /min BP Systolic Sitting 150 mmHg LA reg cuff BP Diastolic Sitting 88 mmHg LA reg cuff BP Systolic Standing 126 mmHg la sitting repeat BP Diastolic Standing 74 mmHg la sitting repeat BMI (Body Mass Index) 30.6 kg/m2 Ejection Fraction 55-60% echo 08/10/13 05/01/2016 Height 69 inches 5'9" Weight 205.75 lb w/o shoes Heart Rate 88 /min BP Systolic Sitting 128 mmHg LA lrg cuff BP Diastolic Sitting 68 mmHg LA lrg cuff BMI (Body Mass Index) 30.4 kg/m2 Ejection Fraction 50% - 55% echo 08/10/13 11/22/2015 Height 69 inches 5'9" Weight 199.00 lb w/ shoes Heart Rate 70 /min reg BP Systolic Sitting 136 mmHg Rue, reg cuff BP Diastolic Sitting 86 mmHg Rue, reg cuff BP Systolic Standing 140 mmHg Rue BP Diastolic Standing 90 mmHg Rue Respiratory Rate 16 /min BMI (Body Mass Index) 29.4 kg/m2 Ejection Fraction 55-60% as of 08/10/13 echo 11/18/2015 Height 69 inches 5'9" Weight 196.00 lb w/shoes Heart Rate 94 /min BP Systolic Sitting 142 mmHg LA reg cuff BP Diastolic Sitting 102 mmHg LA reg cuff BMI (Body Mass Index) 28.9 kg/m2 Ejection Fraction 55-60% Echo 08/10/13 08/30/2015 Height 69 inches 5'9" Weight 198.00 lb w/o shoes Heart Rate 100 /min reg BP Systolic Sitting 130 mmHg Lue, reg cuff BP Diastolic Sitting 72 mmHg Lue, reg cuff BP Systolic Standing 124 mmHg Lue BP Diastolic Standing 76 mmHg Lue Respiratory Rate 20 /min BMI (Body Mass Index) 29.2 kg/m2 Ejection Fraction 55-60% as of 08/10/13 echo 08/16/2015 Height 69 inches 5'9" Weight 199.00 lb w/shoes Heart Rate 88 /min BP Systolic Sitting 138 mmHg LA reg cuff BP Diastolic Sitting 90 mmHg LA reg cuff BMI (Body Mass Index) 29.4 kg/m2 Ejection Fraction 62% NLM 09/15/13 05/30/2015 Height 69 inches 5'9" Weight 210.00 lb BP Systolic Sitting 132 mmHg BP Diastolic Sitting 64 mmHg Respiratory Rate 16 /min Pain Level 8 BMI (Body Mass Index) 31.0 kg/m2 01/03/2015 Height 69 inches 5'9" Weight 202.00 lb w/shoess Heart Rate 80 /min BP Systolic Sitting 138 mmHg LA reg cuff BP Diastolic Sitting 92 mmHg LA reg cuff BP Systolic Standing 121 mmHg la repeat BP Diastolic Standing 76 mmHg la repeat BMI (Body Mass Index) 29.8 kg/m2 Ejection Fraction 62 NLM 09/15/13 03/17/2014 Height 69 inches 5'9" Weight 208.00 lb Heart Rate 86 /min BP Systolic 128 mmHg repeat BP Diastolic 82 mmHg repeat BP Systolic Sitting 138 mmHg LA, reg BP Diastolic Sitting 92 mmHg LA, reg BMI (Body Mass Index) 30.7 kg/m2 01/07/2014 Height 69 inches 5'9" Weight 208.25 lb Heart Rate 88 /min BP Systolic 122 mmHg LA reg cuff BP Diastolic 82 mmHg LA reg cuff BMI (Body Mass Index) 30.7 kg/m2 09/29/2013 Height 69 inches 5'9" Weight 209.25 lb Heart Rate 84 /min BP Systolic Sitting 124 mmHg BP Diastolic Sitting 86 mmHg Respiratory Rate 16 /min BMI (Body Mass Index) 30.9 kg/m2 08/31/2013 Height 69 inches 5'9" Weight 210.00 lb Heart Rate 80 /min BP Systolic Sitting 120 mmHg LA reg cuff BP Diastolic Sitting 88 mmHg LA reg cuff BP Systolic Standing 120 mmHg LA reg cuff BP Diastolic Standing 90 mmHg LA reg cuff Respiratory Rate 17 /min BMI (Body Mass Index) 31.0 kg/m2 08/17/2013 Height 69 inches 5'9" Weight 213.00 lb with shoes Heart Rate 80 /min BP Systolic Sitting 130 mmHg LA reg cuff BP Diastolic Sitting 90 mmHg LA reg cuff BP Systolic Standing 130 mmHg LA reg cuff BP Diastolic Standing 92 mmHg LA reg cuff Respiratory Rate 17 /min BMI (Body Mass Index) 31.5 kg/m2 08/12/2013 Height 69 inches 5'9" Weight 210.25 lb Heart Rate 88 /min BP Systolic 148 mmHg Ra reg cuff BP Diastolic 88 mmHg Ra reg cuff BP Systolic Sitting 144 mmHg LA Reg cuff BP Diastolic Sitting 80 mmHg LA Reg cuff BP Systolic Standing 132 mmHg LA reg cuff BP Diastolic Standing 78 mmHg LA reg cuff Respiratory Rate 16 /min BMI (Body Mass Index) 31.0 kg/m2 07/28/2013 Height 69 inches 5'9" Weight 209.00 lb Heart Rate 68 /min BP Systolic Sitting 150 mmHg BP Diastolic Sitting 98 mmHg BMI (Body Mass Index) 30.9 kg/m2 02/24/2013 Height 69 inches 5'9" Weight 207.00 lb Heart Rate 72 /min Regular BP Systolic Sitting 130 mmHg BP Diastolic Sitting 92 mmHg BMI (Body Mass Index) 30.6 kg/m2 08/26/2012 Height 69 inches 5'9" Weight 209.38 lb Heart Rate 80 /min Regular BP Systolic Sitting 124 mmHg BP Diastolic Sitting 92 mmHg BMI (Body Mass Index) 30.9 kg/m2 07/10/2012 Height 69 inches 5'9" Weight 206.00 lb Heart Rate 76 /min BP Systolic Sitting 92 mmHg BP Diastolic Sitting 70 mmHg BMI (Body Mass Index) 30.4 kg/m2 07/10/2012 Heart Rate 76 /min BP Systolic Sitting 92 mmHg BP Diastolic Sitting 70 mmHg Results Test Date Test Result H/L Range Note Lipid Panel - M 09/16/2017 Creatine Kinase(CK) 66 U/L 10-223 Comp Metabolic Panel 09/16/2017 Sodium 138 mmol/L 135-145 Potassium 4.4 mmol/L 3.5-5.0 Chloride 104 mmol/L 101-111 Co2 Carbon Dioxide 24 mmol/L 22-32 Anion Gap 10 mmol/L 2-11 Glucose 159 mg/dL High 70-100 Blood Urea Nitrogen 23 mg/dL 6-24 Creatinine 0.83 mg/dL 0.67-1.17 BUN/Creatinine Ratio 27.7 High 8-20 Calcium 9.5 mg/dL 8.6-10.3 Total Protein 6.9 g/dL 6.4-8.9 Albumin 3.9 g/dL 3.2-5.2 Globulin 3.0 g/dL 2-4 Albumin/Globulin Ratio 1.3 1-3 Total Bilirubin 0.60 mg/dL 0.2-1.0 Alkaline Phosphatase 72 U/L 34-104 Alt 14 U/L 7-52 Ast 12 U/L Low 13-39 Egfr Non- 96.9 >60 Egfr 124.6 >60 1 Lipid Profile (Trig/Chol/HDL) 09/16/2017 Triglycerides 435 mg/dL 2 Cholesterol 186 mg/dL 3 HDL Cholesterol 29.3 mg/dL 4 LDL Cholesterol (SEE NOTE) mg/dL 5 CBC Auto Diff 09/16/2017 White Blood Count 7.6 10^3/uL 3.5-10.8 Red Blood Count 5.13 10^6/uL 4.00-5.40 Hemoglobin 13.5 g/dL Low 14.0-18.0 Hematocrit 40 % Low 42-52 Mean Corpuscular Volume 78 fL Low 80-94 Mean Corpuscular Hemoglobin 26 pg Low 27-31 Mean Corpuscular HGB Conc 34 g/dL 31-36 Red Cell Distribution Width 16 % High 10.5-15 Platelet Count 340 10^3/uL 150-450 Mean Platelet Volume 7.4 um3 7.4-10.4 Abs Neutrophils 3.7 10^3/uL 1.5-7.7 Abs Lymphocytes 3.0 10^3/uL 1.0-4.8 Abs Monocytes 0.8 10^3/uL 0-0.8 Abs Eosinophils 0.1 10^3/uL 0-0.6 Abs Basophils 0.1 10^3/uL 0-0.2 Abs Nucleated RBC 0 10^3/uL Granulocyte % 48.0 % 38-83 Lymphocyte % 39.3 % 25-47 Monocyte % 10.3 % High 0-7 Eosinophil % 1.7 % 0-6 Basophil % 0.7 % 0-2 Nucleated Red Blood Cells % 0.1 Laboratory test finding 09/16/2017 LDL Cholesterol Direct 111 mg/dL 6 Laboratory test finding 04/28/2015 Lactic Acid 1.9 mmol/L 0.5-2.0 7 Troponin-I (TnI) 0.00 ng/mL <0.03 8 CBC Auto Diff 04/28/2015 White Blood Count 9.3 10^3/uL 3.5-10.8 Red Blood Count 5.19 10^6/uL 4.0-5.4 Hemoglobin 16.0 g/dL 14.0-18.0 Hematocrit 48 % 42-52 Mean Corpuscular Volume 92 fL 80-94 Mean Corpuscular Hemoglobin 31 pg 27-31 Mean Corpuscular HGB Conc 34 g/dL 31-36 Red Cell Distribution Width 14 % 10.5-15 Platelet Count 278 10^3/uL 150-450 Mean Platelet Volume 8 um3 7.4-10.4 Abs Neutrophils 6.0 10^3/uL 1.5-7.7 Abs Lymphocytes 2.5 10^3/uL 1.0-4.8 Abs Monocytes 0.6 10^3/uL 0-0.8 Abs Eosinophils 0.1 10^3/uL 0-0.6 Abs Basophils 0.1 10^3/uL 0-0.2 Abs Nucleated RBC 0.01 10^3/uL Granulocyte % 64.8 % 38-83 Lymphocyte % 26.3 % 25-47 Monocyte % 6.8 % 1-9 Eosinophil % 1.2 % 0-6 Basophil % 0.9 % 0-2 Nucleated Red Blood Cells % 0.1 Comp Metabolic Panel 04/28/2015 Sodium 133 mmol/L 133-145 Potassium 3.8 mmol/L 3.5-5.0 Chloride 98 mmol/L Low 101-111 Co2 Carbon Dioxide 26 mmol/L 22-32 Anion Gap 9 mmol/L 2-11 Glucose 198 mg/dL High 70-100 Blood Urea Nitrogen 18 mg/dL 6-24 Creatinine 0.85 mg/dL 0.67-1.17 BUN/Creatinine Ratio 21.2 High 8-20 Calcium 9.4 mg/dL 8.6-10.3 Total Protein 7.1 g/dL 6.4-8.9 Albumin 4.2 g/dL 3.2-5.2 Globulin 2.9 g/dL 2-4 Albumin/Globulin Ratio 1.4 1-3 Total Bilirubin 0.50 mg/dL 0.2-1.0 Alkaline Phosphatase 56 U/L 34-104 Alt 20 U/L 7-52 Ast 16 U/L 13-39 Egfr Non- 95.0 >60 Egfr 122.2 >60 9 Laboratory test finding 04/28/2015 Troponin-I (TnI) 0.00 ng/mL <0.03 10 Lactic Acid 2.4 mmol/L High 0.5-2.0 11 Lipid Profile (Trig/Chol/HDL) 02/28/2015 Triglycerides 390 mg/dL 12 Cholesterol 206 mg/dL 13 HDL Cholesterol 29.5 mg/dL 14 LDL Cholesterol 99 mg/dL 15 Comp Metabolic Panel 02/28/2015 Sodium 134 mmol/L 133-145 Potassium 4.2 mmol/L 3.5-5.0 Chloride 100 mmol/L Low 101-111 Co2 Carbon Dioxide 25 mmol/L 22-32 Anion Gap 9 mmol/L 2-11 Glucose 137 mg/dL High 70-100 Blood Urea Nitrogen 19 mg/dL 6-24 Creatinine 0.82 mg/dL 0.67-1.17 BUN/Creatinine Ratio 23.2 High 8-20 Calcium 9.8 mg/dL 8.6-10.3 Total Protein 7.4 g/dL 6.4-8.9 Albumin 4.4 g/dL 3.2-5.2 Globulin 3.0 g/dL 2-4 Albumin/Globulin Ratio 1.5 1-3 Total Bilirubin 0.60 mg/dL 0.2-1.0 Alkaline Phosphatase 63 U/L 34-104 Alt 18 U/L 7-52 Ast 15 U/L 13-39 Egfr Non- 99.5 >60 Egfr 127.9 >60 16 Lipid Panel - [facility] 02/28/2015 Creatine Kinase(CK) 55 U/L 10-223 CBC Auto Diff 02/28/2015 White Blood Count 14.5 10^3/uL High 4.8-10.8 Red Blood Count 5.52 10^6/uL High 4.0-5.4 Hemoglobin 17.1 g/dL 14.0-18.0 Hematocrit 50 % 42-52 Mean Corpuscular Volume 91 fL 80-94 Mean Corpuscular Hemoglobin 31 pg 27-31 Mean Corpuscular HGB Conc 34 g/dL 31-36 Red Cell Distribution Width 14 % 10.5-15 Platelet Count 283 10^3/uL 150-450 Mean Platelet Volume 7 um3 Low 7.4-10.4 Abs Neutrophils 11.4 10^3/uL High 1.5-7.7 Abs Lymphocytes 2.2 10^3/uL 1.0-4.8 Abs Monocytes 0.8 10^3/uL 0-0.8 Abs Eosinophils 0.1 10^3/uL 0-0.6 Abs Basophils 0.1 10^3/uL 0-0.2 Abs Nucleated RBC 0.05 10^3/uL Granulocyte % 78.4 % 38-83 Lymphocyte % 15.1 % Low 25-47 Monocyte % 5.2 % 1-9 Eosinophil % 0.8 % 0-6 Basophil % 0.5 % 0-2 Nucleated Red Blood Cells % 0.4 Urine Microalbumin Random 02/28/2015 Urine Creatinine 118.80 mg/dL Ur Microalbumin (mg/L) 331.0 mg/L Urine Microalbumin/Creatinine 278.6 ug/mg High <31 Laboratory test finding 02/28/2015 Magnesium 1.6 mg/dL Low 1.9-2.7 TSH (Thyroid Stim Horm) 1.06 ?IU/mL 0.34-5.60 Vitamin B12 1068 pg/mL High 180-914 17 Vitamin D Total 25(Oh) 28.6 ng/mL Low 30-50 Basic Metabolic Panel 09/06/2014 Sodium 136 mmol/L 133-145 Potassium 4.6 mmol/L 3.5-5.0 Chloride 102 mmol/L 101-111 Co2 Carbon Dioxide 27 mmol/L 22-32 Anion Gap 7 mmol/L 2-11 Glucose 92 mg/dL 70-100 Blood Urea Nitrogen 16 mg/dL 6-24 Creatinine 0.78 mg/dL 0.67-1.17 BUN/Creatinine Ratio 20.5 High 8-20 Calcium 9.9 mg/dL 8.6-10.3 Egfr Non- 105.4 >60 Egfr 135.5 >60 18 Order 08/10/2013 Pulse Oximetry Overnight <pending> Lipid Panel - [facility] 07/07/2013 Creatine Kinase 48 U/L 10-223 19, 20 CBC Auto Diff 07/07/2013 White Blood Count 9.9 10^3/uL 4.8-10.8 19 Red Blood Count 5.51 10^6/uL High 4.0-5.4 19 Hemoglobin 17.4 g/dL 14.0-18.0 19 Hematocrit 50 % 42-52 19 Mean Corpuscular Volume 90 fL 80-94 19 Mean Corpuscular Hemoglobin 32 pg High 27-31 19 Mean Corpuscular HGB Conc 35 g/dL 31-36 19 Red Cell Distribution Width 13 % 10.5-15 19 Platelet Count 251 10^3/uL 150-450 19 Mean Platelet Volume 8 um3 7.4-10.4 19 Abs Neutrophils 5.6 10^3/uL 1.5-7.7 19 Abs Lymphocytes 3.2 10^3/uL 1.0-4.8 19 Abs Monocytes 0.8 10^3/uL 0-0.8 19 Abs Eosinophils 0.2 10^3/uL 0-0.6 19 Abs Basophils 0.1 10^3/uL 0-0.2 19 Abs Nucleated RBC 0 10^3/uL 19 Granulocyte % 55.9 % 38-83 19 Lymphocyte % 32.6 % 25-47 19 Monocyte % 8.3 % 1-9 19 Eosinophil % 2.0 % 0-6 19 Basophil % 1.2 % 0-2 19 Nucleated Red Blood Cells % 0 19 Comp Metabolic Panel 07/07/2013 Sodium 135 mmol/L 133-145 19 Potassium 4.6 mmol/L 3.7-5.6 19 Chloride 100 mmol/L Low 101-111 19 Co2 Carbon Dioxide 28 mmol/L 22-32 19 Anion Gap 7 mmol/L 2-11 19 Glucose 224 mg/dL High 70-100 19 Blood Urea Nitrogen 18 mg/dL 6-24 19 Creatinine 0.76 mg/dL 0.67-1.17 19 BUN/Creatinine Ratio 23.7 High 8-20 19 Calcium 9.5 mg/dL 8.6-10.3 19 Total Protein 7.1 g/dL 6.4-8.9 19 Albumin 4.4 g/dL 3.2-5.2 19 Globulin 2.7 g/dL 2-4 19 Albumin/Globulin Ratio 1.6 1-3 19 Total Bilirubin 0.90 mg/dL 0.2-1.0 19 Alkaline Phosphatase 57 U/L 34-104 19 Alt 15 U/L 7-52 19 Ast 12 U/L Low 13-39 19 Egfr Non- 109.0 >60 19 Egfr 140.2 >60 19, 21 Lipid Profile (Trig/Chol/HDL) 07/07/2013 Triglycerides 446 mg/dL 19, 22 Cholesterol 144 mg/dL 19, 23 HDL Cholesterol 25.7 mg/dL 19, 24 LDL Cholesterol (SEE NOTE) mg/dL 19, 25 Laboratory test finding 07/07/2013 Vitamin B12 1139 pg/mL High 180-914 19 , 26 TSH (Thyroid Stimulating Horm) 0.56 IU/mL 0.34-5.60 19, 27 Luteinizing Hormone 6.7 IU/mL 2-12 19, 28 Prolactin 9.2 ng/mL 1.0-20.0 19, 29 Vitamin D, 25 Hydroxy 07/07/2013 25-Hydroxy Vitamin D2 <4.0 ng/mL 19 25-Hydroxy Vitamin D3 42 ng/mL 19 25-Hydroxy Vitamin D Total 42 ng/mL 19, 30 Miscellaneous Test 07/07/2013 Test Name TEST FREE BY NASRA <SEE NOTE> 19 , 31 Result 100 19, 32 Reference Range 52-280 19, 33 Urine Microalbumin Random 07/07/2013 Ur Microalbumin (mg/L) 196.0 mg/dL < 30 34 Urine Creatinine 99.30 mg/dL Urine Microalbumin/Creatinine 197.3 High Less Than 31 Lipid Profile (Trig/Chol/HDL) 03/24/2013 Triglycerides 222 mg/dL High 40- 200 Cholesterol 140 mg/dL Less than 200 HDL Cholesterol 34 mg/dL Low 40-60 35 Cholesterol/HDL Ratio 4.1 Average 1-4.44 LDL Cholesterol 61.6 Less Than 100 36 Laboratory test finding 03/24/2013 Alt 24 U/L 14-54 37 Ast 18 U/L 12-42 38 Comp Metabolic Panel 02/09/2013 Sodium 133 mmol/L 133-145 Potassium 4.3 mmol/L 3.5-5.0 Chloride 99 mmol/L Low 101-111 Co2 Carbon Dioxide 25.0 mmol/L 22-32 Anion Gap 9.0 mmol/L 2-11 Glucose 161 mg/dL High 70-100 Blood Urea Nitrogen 14 mg/dL 6-24 Creatinine 0.70 mg/dL 0.50-1.40 BUN/Creatinine Ratio 20.0 8-20 Calcium 9.4 mg/dL 8.1-9.9 Total Protein 6.6 g/dL 6.2-8.1 Albumin 3.8 g/dL 3.6-5.4 Globulin 2.8 g/dL 2-4 Albumin/Globulin Ratio 1.4 1-3 Total Bilirubin 1.3 mg/dL 0.4-1.5 Alkaline Phosphatase 54 U/L 30-110 Alt 23 U/L 14-54 Ast 21 U/L 12-42 Egfr Non- 120.4 >60 Egfr 154.8 >60 39 Lipid Profile (Trig/Chol/HDL) 02/09/2013 Triglycerides 253 mg/dL High 40- 200 Cholesterol 168 mg/dL Less than 200 HDL Cholesterol 34 mg/dL Low 40-60 40 Cholesterol/HDL Ratio 4.9 Average High 1-4.44 LDL Cholesterol 83.4 Less Than 100 41 Laboratory test finding 02/09/2013 Vitamin B12 563 pg/mL 180-914 42 TSH (Thyroid Stimulating Horm) 0.64 miu/mL 0.34-5.60 43 Vitamin D, 25 Hydroxy 02/09/2013 25-Hydroxy Vitamin D2 <4.0 ng/mL 25-Hydroxy Vitamin D3 51 ng/mL 25-Hydroxy Vitamin D Total 51 ng/mL 44 Urine Microalbumin Random 02/09/2013 Ur Microalbumin (mg/L) 206.0 mg/L 45 Urine Creatinine 160.6 mg/dL Urine Microalbumin/Creatinine 128.3 High Less Than 31 Lipid Profile (Trig/Chol/HDL) 11/11/2012 Triglycerides 301 mg/dL High 40- 200 Cholesterol 132 mg/dL Less than 200 HDL Cholesterol 29 mg/dL Low 40-60 46 Cholesterol/HDL Ratio 4.6 Average High 1-4.44 LDL Cholesterol 42.8 Less Than 100 47 Laboratory test finding 11/11/2012 Ast 18 U/L 12-42 48 Alt 21 U/L 14-54 49 Comp Metabolic Panel 11/11/2012 Sodium 134 mmol/L 133-145 Potassium 4.4 mmol/L 3.5-5.0 Chloride 102 mmol/L 101-111 Co2 Carbon Dioxide 25.0 mmol/L 22-32 Anion Gap 7.0 mmol/L 2-11 Glucose 213 mg/dL High 70-100 Blood Urea Nitrogen 14 mg/dL 6-24 Creatinine 0.70 mg/dL 0.50-1.40 BUN/Creatinine Ratio 20.0 8-20 Calcium 9.6 mg/dL 8.1-9.9 Total Protein 6.6 g/dL 6.2-8.1 Albumin 3.5 g/dL Low 3.6-5.4 Globulin 3.1 g/dL 2-4 Albumin/Globulin Ratio 1.1 1-3 Total Bilirubin 0.9 mg/dL 0.4-1.5 Alkaline Phosphatase 55 U/L 30-110 Alt 22 U/L 14-54 Ast 20 U/L 12-42 Egfr Non- 120.4 >60 Egfr 154.8 >60 50 Laboratory test finding 11/11/2012 Vitamin B12 568 pg/mL 180-914 51 TSH (Thyroid Stimulating Horm) 0.82 miu/mL 0.34-5.60 52 Vitamin D, 25 Hydroxy 11/11/2012 25-Hydroxy Vitamin D2 <4.0 ng/mL 25-Hydroxy Vitamin D3 53 ng/mL 25-Hydroxy Vitamin D Total 53 ng/mL 53 Lipid Profile (Trig/Chol/HDL) 08/12/2012 Triglycerides 267 mg/dL High 40- 200 Cholesterol 173 mg/dL Less than 200 HDL Cholesterol 37 mg/dL Low 40-60 54 Cholesterol/HDL Ratio 4.7 Average High 1-4.44 LDL Cholesterol 82.6 mg/dL Less Than 100 55 Laboratory test finding 08/12/2012 Alt 27 U/L 14-54 Ast 21 U/L 12-42 Comp Metabolic Panel 08/12/2012 Sodium 136 mmol/L 133-145 Potassium 4.9 mmol/L 3.5-5.0 Chloride 104 mmol/L 101-111 Co2 Carbon Dioxide 25.0 mmol/L 22-32 Anion Gap 7.0 mmol/L 2-11 Glucose 200 mg/dL High 70-100 Blood Urea Nitrogen 17 mg/dL 6-24 Creatinine 0.70 mg/dL 0.50-1.40 BUN/Creatinine Ratio 24.3 High 8-20 Calcium 9.6 mg/dL 8.1-9.9 Total Protein 6.8 g/dL 6.2-8.1 Albumin 3.6 g/dL 3.6-5.4 Globulin 3.2 g/dL 2-4 Albumin/Globulin Ratio 1.1 1-3 Total Bilirubin 1.2 mg/dL 0.4-1.5 Alkaline Phosphatase 45 U/L 30-110 Egfr Non- 120.4 >60 Egfr 154.8 >60 56 Vitamin D, 25 Hydroxy 08/12/2012 25-Hydroxy Vitamin D2 <4.0 ng/mL 25-Hydroxy Vitamin D3 43 ng/mL 25-Hydroxy Vitamin D Total 43 ng/mL 57 Urine Microalbumin Random 08/12/2012 Ur Microalbumin (Mg/L) 180.0 mg/L 58 Urine Creatinine 109.1 mg/dL Urine Microalbumin/Creatinine 165.0 ug/mg High Less Than 31 Laboratory test finding 08/12/2012 Vitamin B12 582 pg/mL 180-914 59 TSH (Thyroid Stimulating Horm) 0.59 miu/mL 0.34-5.60 60 1 Because ethnic data is not always readily available, this report includes an eGFR for both -Americans and non- Americans. The National Kidney Disease Education Program (NKDEP) does not endorse the use of the MDRD equation for patients that are not between the ages of 18 and 70, are , have extremes of body size, muscle mass, or nutritional status, or are non- or non-. According to the [employer], irrespective of diagnosis, the stage of the disease is based on the level of kidney function: Stage Description GFR(mL/min/1.73 m(2)) 1 Kidney damage with normal or decreased GFR 90 2 Kidney damage with mild decrease in GFR 60-89 3 Moderate decrease in GFR 30-59 4 Severe decrease in GFR 15-29 5 Kidney failure <15 (or dialysis) 2 Desirable: <150 Borderline High: 150-199 High: 200-499 Very High: >500 3 Desirable: <200 Borderline High: 200-239 High: >239 4 Low: <40 Desirable: 40-60 High: >60 5 Unable to calculate LDL as triglyceride is > 400 6 Desirable: <100 Near Optimal: 100-129 Borderline High: 130-159 High: 160-189 Very High: >189 7 [facility] Severe Sepsis and Septic Shock Management Bundle Measure requires all lactic acids initially measuring >2.0mmol/L be repeated. 8 Reference Range and Interpretation: TnI (ng/mL) Interpretation Less Than 0.03 ng/mL Not supportive of diagnosis of NE 0.03 - 0.50 ng/mL Indeterminate: suggest serial studies if clinically indicated. Greater than 0.5 ng/mL Consistent with diagnosis of NE 9 Because ethnic data is not always readily available, this report includes an eGFR for both -Americans and non- Americans. The National Kidney Disease Education Program (NKDEP) does not endorse the use of the MDRD equation for patients that are not between the ages of 18 and 70, are , have extremes of body size, muscle mass, or nutritional status, or are non- or non-. According to the National Kidney Foundation, irrespective of diagnosis, the stage of the disease is based on the level of kidney function: Stage Description GFR(mL/min/1.73 m(2)) 1 Kidney damage with normal or decreased GFR 90 2 Kidney damage with mild decrease in GFR 60-89 3 Moderate decrease in GFR 30-59 4 Severe decrease in GFR 15-29 5 Kidney failure <15 (or dialysis) 10 Reference Range and Interpretation: TnI (ng/mL) Interpretation Less Than 0.03 ng/mL Not supportive of diagnosis of NE 0.03 - 0.50 ng/mL Indeterminate: suggest serial studies if clinically indicated. Greater than 0.5 ng/mL Consistent with diagnosis of NE 11 Critical Result LACT:2.4 Called to LEONA/ED at: 17:06:20 by:[id number] Read back by:LEONA/ED MEGANClayton Severe Sepsis and Septic Shock Management Bundle Measure requires all lactic acids initially measuring >2.0mmol/L be repeated. 12 Desirable <150 Borderline high 150-199 High 200-499 Very High >500 13 Desirable <200 Borderline high 200-239 High >239 14 Low <40 Desirable: 40-60 High: >60 15 Desirable: <100 mg/dL Near Optimal: 100-129 mg/dL Borderline High: 130-159 mg/dL High: 160-189 mg/dL Very High: >189 mg/dL 16 Because ethnic data is not always readily available, this report includes an eGFR for both -Americans and non- Americans. The National Kidney Disease Education Program (NKDEP) does not endorse the use of the MDRD equation for patients that are not between the ages of 18 and 70, are , have extremes of body size, muscle mass, or nutritional status, or are non- or non-. According to the National Kidney Foundation, irrespective of diagnosis, the stage of the disease is based on the level of kidney function: Stage Description GFR(mL/min/1.73 m(2)) 1 Kidney damage with normal or decreased GFR 90 2 Kidney damage with mild decrease in GFR 60-89 3 Moderate decrease in GFR 30-59 4 Severe decrease in GFR 15-29 5 Kidney failure <15 (or dialysis) 17 Normal Range 180 to 914 Indeterminate Range 145 to 180 Deficient Range <145 18 Because ethnic data is not always readily available, this report includes an eGFR for both -Americans and non- Americans. The National Kidney Disease Education Program (NKDEP) does not endorse the use of the MDRD equation for patients that are not between the ages of 18 and 70, are , have extremes of body size, muscle mass, or nutritional status, or are non- or non-. According to the National Kidney Foundation, irrespective of diagnosis, the stage of the disease is based on the level of kidney function: Stage Description GFR(mL/min/1.73 m(2)) 1 Kidney damage with normal or decreased GFR 90 2 Kidney damage with mild decrease in GFR 60-89 3 Moderate decrease in GFR 30-59 4 Severe decrease in GFR 15-29 5 Kidney failure <15 (or dialysis) 19 FASTING 20 FASTING 21 Because ethnic data is not always readily available, this report includes an eGFR for both -Americans and non- Americans. The National Kidney Disease Education Program (NKDEP) does not endorse the use of the MDRD equation for patients that are not between the ages of 18 and 70, are , have extremes of body size, muscle mass, or nutritional status, or are non- or non-. According to the National Kidney Foundation, irrespective of diagnosis, the stage of the disease is based on the level of kidney function: Stage Description GFR(mL/min/1.73 m(2)) 1 Kidney damage with normal or decreased GFR 90 2 Kidney damage with mild decrease in GFR 60-89 3 Moderate decrease in GFR 30-59 4 Severe decrease in GFR 15-29 5 Kidney failure <15 (or dialysis) 22 Desirable <150 Borderline high 150-199 High 200-499 Very High >500 23 Desirable <200 Borderline high 200-239 High >239 24 Low <40 Desirable: 40-60 High: >60 25 Unable to calculate LDL as triglyceride is > 400 26 Normal Range 180 to 914 Indeterminate Range 145 to 180 Deficient Range <145 27 --- 07/07/13 0946 --- TSH previously reported as: 0.59 IU/mL 28 FASTING 29 FASTING 30 -- REFERENCE VALUE -- 25-HYDROXY D TOTAL (D2+D3) Optimum levels in the healthy population are 20-50, patients with bone disease may benefit from higher levels within this range. Test Performed by: [address] [address] Lead C Developer: Humberto Harley III, M.D. 31 TEST FREE BY DIALYSI 32 Test performed at [facility] units: pg/mL total testosterone: 456 mg/dL (range: 348-1197) %free testosterone: 2.2 (range: 1.5-3.2) 33 Test performed at [facility] 34 Microalbuminuria in a random sample is defined as: Microalbumin/Creatinine ratio of 30-299 ug/mg. 35 HDL Interpretation: Undesirable: High Risk: Less than 40 mg/dL Desirable: Low Risk: Greater than 60 mg/dL 36 LDL Interpretation: Low Risk Optimal Level: LDL Less than 100 mg/dL Near or Above Optimal: LDL 100-129 mg/dL Borderline High Risk: LDL 130-159 mg/dL High Risk: LDL 160-189 mg/dL Very High Risk: LDL Greater than 189 mg/dL 37 FASTING 38 FASTING 39 Because ethnic data is not always readily available, this report includes an eGFR for both -Americans and non- Americans. The National Kidney Disease Education Program (NKDEP) does not endorse the use of the MDRD equation for patients that are not between the ages of 18 and 70, are , have extremes of body size, muscle mass, or nutritional status, or are non- or non-. According to the National Kidney Foundation, irrespective of diagnosis, the stage of the disease is based on the level of kidney function: Stage Description GFR(mL/min/1.73 m(2)) 1 Kidney damage with normal or decreased GFR 90 2 Kidney damage with mild decrease in GFR 60-89 3 Moderate decrease in GFR 30-59 4 Severe decrease in GFR 15-29 5 Kidney failure <15 (or dialysis) 40 HDL Interpretation: Undesirable: High Risk: Less than 40 mg/dL Desirable: Low Risk: Greater than 60 mg/dL 41 LDL Interpretation: Low Risk Optimal Level: LDL Less than 100 mg/dL Near or Above Optimal: LDL 100-129 mg/dL Borderline High Risk: LDL 130-159 mg/dL High Risk: LDL 160-189 mg/dL Very High Risk: LDL Greater than 189 mg/dL 42 FASTING 43 FASTING 44 Interpretation: 51-80 ng/mL (increased risk of hypercalciuria) -- REFERENCE VALUE -- 25-HYDROXY D TOTAL (D2+D3) Optimum levels in the healthy population are 20-50, patients with bone disease may benefit from higher levels within this range. Test Performed by: [facility] [address] [address] Lead C Developer: Humberto Harley III, M.D. 45 Microalbuminuria in a random sample is defined as: Microalbumin/Creatinine ratio of 30-299 ug/mg. 46 HDL Interpretation: Undesirable: High Risk: Less than 40 mg/dL Desirable: Low Risk: Greater than 60 mg/dL 47 LDL Interpretation: Low Risk Optimal Level: LDL Less than 100 mg/dL Near or Above Optimal: LDL 100-129 mg/dL Borderline High Risk: LDL 130-159 mg/dL High Risk: LDL 160-189 mg/dL Very High Risk: LDL Greater than 189 mg/dL 48 FASTING 49 FASTING 50 Because ethnic data is not always readily available, this report includes an eGFR for both -Americans and non- Americans. The National Kidney Disease Education Program (NKDEP) does not endorse the use of the MDRD equation for patients that are not between the ages of 18 and 70, are , have extremes of body size, muscle mass, or nutritional status, or are non- or non-. According to the National Kidney Foundation, irrespective of diagnosis, the stage of the disease is based on the level of kidney function: Stage Description GFR(mL/min/1.73 m(2)) 1 Kidney damage with normal or decreased GFR 90 2 Kidney damage with mild decrease in GFR 60-89 3 Moderate decrease in GFR 30-59 4 Severe decrease in GFR 15-29 5 Kidney failure <15 (or dialysis) 51 FASTING 52 FASTING 53 -- REFERENCE VALUE -- 25-HYDROXY D TOTAL (D2+D3) Optimum levels in the normal population are 25-80 Test Performed by: [address] [address] Lead C Developer: Humberto Harley III, M.D. 54 HDL Interpretation: Undesirable: High Risk: Less than 40 MG/DL Desirable: Low Risk: Greater than 60 MG/DL 55 LDL Interpretation: Low Risk Optimal Level: LDL Less than 100 MG/DL Near or Above Optimal: LDL 100-129 MG/DL Borderline High Risk: LDL 130-159 MG/DL High Risk: LDL 160-189 MG/DL Very High Risk: LDL Greater than 189 MG/DL 56 Because ethnic data is not always readily available, this report includes an eGFR for both -Americans and non- Americans. The National Kidney Disease Education Program (NKDEP) does not endorse the use of the MDRD equation for patients that are not between the ages of 18 and 70, are , have extremes of body size, muscle mass, or nutritional status, or are non- or non-. According to the National Kidney Foundation, irrespective of diagnosis, the stage of the disease is based on the level of kidney function: Stage Description GFR(mL/min/1.73 m(2)) 1 Kidney damage with normal or decreased GFR 90 2 Kidney damage with mild decrease in GFR 60-89 3 Moderate decrease in GFR 30-59 4 Severe decrease in GFR 15-29 5 Kidney failure <15 (or dialysis) 57 -- REFERENCE VALUE -- 25-HYDROXY D TOTAL (D2+D3) Optimum levels in the normal population are 25-80 Test Performed by: [place] [address] Lead C Developer: Humberto Harley III, M.D. 58 Microalbuminuria in a random sample is defined as: Microalbumin/Creatinine ratio of 30-299 ug/mg. 59 Fasting 60 Fasting Procedures Date CPT Code Description Status 09/11/2017 43074 EKG Tracing & Interpretation Completed 07/11/2017 82021 EKG Tracing & Interpretation Completed 06/19/2017 02447 Left Heart Cath. Incl S/I Coronaries, Angio S/I V Gram Completed If Done 06/17/2017 22316 Treadmill Interp/Report Only Completed 06/17/2017 09954 Stress Test Supervsn W/Out I/R Completed 06/17/2017 64778 EKG, Interpretation Only Completed 06/16/2017 80574 EKG, Interpretation Only Completed 02/18/2017 49830 EKG Tracing & Interpretation Completed 05/01/2016 42193 EKG Tracing & Interpretation Completed 11/18/2015 03083 EKG Tracing & Interpretation Completed 08/16/2015 87073 EKG Tracing & Interpretation Completed 05/30/2015 54327 Inject Tendon Sheath Or Ligament Aponeurosis Eg Plantar Completed Fascia 05/13/2015 74558 Treadmill Interp/Report Only Completed 05/13/2015 80675 Stress Test Supervsn W/Out I/R Completed 01/03/2015 74840 EKG Tracing & Interpretation Completed 03/17/2014 04368 EKG Tracing & Interpretation Completed 10/17/2013 62516 EKG, Interpretation Only Completed 09/14/2013 06692 Treadmill Interp/Report Only Completed 09/14/2013 78790 Stress Test Supervsn W/Out I/R Completed 08/10/2013 50836 ECHO Transthoracic, Real-Time 2D With Doppler And Color Completed Flow 07/28/2013 26923 EKG Tracing & Interpretation Completed 06/30/2012 88442 ECHO Transthorasic Realtime 2D W Doppler & Color Flow Completed Hosp 06/30/2012 87135 EKG, Interpretation Only Completed 06/29/2012 24796 EKG, Interpretation Only Completed 06/28/2012 23681 Left Heart Cath. Incl S/I Coronaries, Angio S/I V Gram Completed If Done 06/28/2012 18230 EKG, Interpretation Only Completed 06/28/2012 20217 Percutaneous Transcatheter Placement Of Intracoronary Completed Stent 06/28/2012 04473 IV Rx Trancath Therapy(Nitro/Sofía) Completed Encounters Type Date Location Provider CPT E/M Dx Office Visit 12/10/2017 [facility] Brooke Hanley, 90770ZNM E78.00 9:30a [place] N.PTracy I25.119 I10 Office Visit 09/11/2017 9:00a [facility] Anthony Adorno, 90882 I25.119 M.D. I10 E78.00 I21.4 Office Visit 07/11/2017 1:00p [facility] Anthony Adorno, 01707 I25.119 M.D. I10 E78.00 Office Visit 06/18/2017 10:07a [facility] Of Chandler Cantu, 85621 I21.4 Senior Hr Business Partner AT [facility] MD, FACC, FSCAI I25.119 Office Visit 06/18/2017 8:52a [facility],[place] [address] I21.4 Hospitalists K21.9 Office Visit 06/17/2017 12:25p [facility] Of Rickey Cadena, 28157 R07.9 Chelsea Still I25.10 Office Visit 06/17/2017 11:05a [facility],tip Weaver, 11933 I24.9 Hospitalists Tessy R07.9 E11.9 I10 Office Visit 06/16/2017 11:04a [facility],tip Stark 12711 I24.9 Hospitalists LEONARDO Manning R07.9 E11.9 I10 Office Visit 06/16/2017 3:47p [facility] [place] ArnoldTracy Lazarus 59340 R07.89 [facility] R79.89 I25.10 Office Visit 02/18/2017 9:20a [facility] Anthony Adorno M.D. 91368 I10 E11.9 I25.10 Office Visit 05/01/2016 9:00a [facility] Anthony Adorno 09652 I25.10 M.D. I10 E11.9 Office Visit 11/22/2015 10:00a [facility] Of [facility] [address] ROCAEL Abrams 20194 I25.10 I10 Office Visit 11/18/2015 2:00p [facility] Anthony Adorno 40745 I25.10 M.DTracy I10 E11.9 Office Visit 08/30/2015 9:30a [facility] ROCAEL Abrams 43801 I25.10 I10 N52.9 E78.5 Office Visit 08/16/2015 2:40p [facility] Anthony Adorno 29078 I25.10 M.DTracy E11.9 I10 R42 N52.9 Office Visit 05/30/2015 9:30a [facility] Debbie Franklin, 96063 M65.322 C.M.ATracy Still Office Visit 11/28/2014 8:32a [facility] Noelle Elizabeth, 68836 789.00 Assoc,pc Hospitalists Tessy 414.00 790.6 250.00 Office Visit 11/27/2014 8:31a [facility],pc Steven Mcwilliams M.D. 50864 789.00 Hospitalists 414.00 790.6 250.00 Office Visit 03/17/2014 2:40p [facility] Anthony Adorno M.D. 94492 401.9 250.00 414.01 Office Visit 01/07/2014 3:00p [facility] ROCAEL Abrams 74985 414.00 414.9 401.9 250.00 Office Visit 10/17/2013 11:42a [facility], 85122 786.50 Assoc,pc Hospitalists N.P. 414.00 401.9 250.00 Office Visit 10/17/2013 9:49a [facility] Of Jose D Ammon Smith, 67149 414.9 [facility] [address] Tessy, [facility] 786.50 Office Visit 10/16/2013 11:41a [facility] Assoc,pc Gennaro Berg, 23316 786.50 Hospitalists N.P. 414.00 401.9 250.00 Office Visit 09/29/2013 3:00p [facility] Anthony Adorno M.D. 01798 401.9 414.01 250.00 Office Visit 09/14/2013 8:30a [facility] Anthony Adorno 19002 786.50 M.DTracy 414.9 Office Visit 08/31/2013 3:00p [facility] Of [facility] [address] ROCAEL Abrams 78024 401.9 414.01 250.00 Office Visit 08/17/2013 10:00a [facility] Of [facility] [address] ROCAEL Abrams 57912 401.9 414.01 250.00 307.49 799.02 Office Visit 08/12/2013 10:00a [facility] Anthony Adorno 39129 414.01 M.DTracy 250.00 401.9 307.49 530.81 Office Visit 07/28/2013 10:00a [facility] Anthony Adorno 43472 250.00 M.D. 414.9 414.01 401.9 307.49 530.81 607.84 Office Visit 02/24/2013 1:20p [facility] Debbie Desir D.O. 83248 414.01 414.9 414.11 401.9 272.4 250.00 Office Visit 08/26/2012 2:00p [facility] AT Debbie Desir 50224 414.01 [facility] D.O. 414.9 414.11 401.9 272.4 250.00 Office Visit 07/10/2012 2:40p [facility] AT Debbie Desir 38740 410.70 [facility] D.O. 414.01 414.11 401.9 272.4 250.00 Office Visit 07/01/2012 1:54p [facility] Of Torin Burroughs M.D., 77923 411.1 [facility] [address] FAC, FSCAI 414.9 Office Visit 06/29/2012 8:43a [facility] Debbie Desir D.O. 32815 786.50 411.1 410.70 414.01 401.1 250.00 Office Visit 06/28/2012 8:45a [facility] Debbie Desir D.O. 09269 786.50 411.1 410.70 414.01 401.1 250.00 Office Visit 05/28/2009 2:15a [facility], Jesus Eldridge, 69451 435.9 Hospitalists MWilfred 401.9 250.00 272.4 Office Visit 05/27/2009 3:30a [facility], Jesus Eldridge, 89968 435.9 Hospitalists MWilfred 414.9 474.12 250.00 401.9 272.4 Plan of Care 12/10/2017 - Brooke Hanley, N.P.E78.00 Pure hypercholesterolemia, unspecifiedRecommendations:Please have labs drawn in 2 weeks. [id number] [facility] [place] art w unsp ang pctrsFollow up:OV JFM 04/2018 Please print lab order from 11/12 for patient.I10 Essential (primary) hypertensionRecommendations:BP running a little high today. I'll get BPs from cardiac rehab.
[2017-12-29 14:58] VITALS: BP 132/91
--- NOTE | 2017-12-29 15:08 | UC ---
Rectal Pain HPI - HPI Summary HPI Summary: c/o rectal pain for 21 days, states he has hemorrhoids in the past and for the past few days has seen streaks of blood in his stool. Denies constipation or melena. States he had a colonoscopy a year ago and that it was normal. Denies vomiting, abdominal pain, chills or fever. PMH of DM, HTN, HLD. - History Of Current Complaint Chief Complaint: UCGI Stated Complaint: HEMORRHOIDS Time Seen by Provider: 12/29/17 15:01 Hx Obtained From: Patient Onset/Duration: Gradual Onset, Lasting Weeks Severity Initially: Mild Severity Currently: Severe Pain Intensity: 8 Location Of Pain: Rectal Character: Dull Aggravating Factor(s): Bowel Movement Alleviating Factor(s): Nothing Associated Signs And Symptoms: Positive: Blood-Streaked Stool, Bright Red Blood w/Stool Related History: Hemorrhoids - Allergies/Home Medications Allergies/Adverse Reactions: Allergies Allergy/AdvReac Type Severity Reaction Status Date / Time No Known Allergies Allergy Verified 12/29/17 14:58 PMH/Surg Hx/FS Hx/Imm Hx Endocrine History: Diabetes, Dyslipidemia Cardiovascular History: Hypertension GI/ History: Gastroesophageal Reflux Psychological History: Depression - Surgical History Surgical History: Yes Surgery Procedure, Year, and Place: Stent to LAD 2001. CARDIAC STENTS PLACED 1 2001, 1 STENT 2010. 12/2015 LAPAROSCOPIC CHOLEYCECTOMY - Family History Known Family History: Positive: Hypertension - Social History Alcohol Use: None Substance Use Type: None Smoking Status (MU): Former Smoker Type: Cigarettes Amount Used/How Often: 1 pck per day Length of Time of Smoking/Using Tobacco: quit 8 months ago Have You Smoked in the Last Year: Yes - "a cigarette if I'm very stressed". When Did the Patient Quit Smoking/Using Tobacco: 10 days ago - Immunization History Most Recent Influenza Vaccination: never Most Recent Tetanus Shot: Unknown Most Recent Pneumonia Vaccination: never Review of Systems Constitutional: Negative Gastrointestinal: Other - rectal pain All Other Systems Reviewed And Are Negative: Yes Physical Exam - Summary Physical Exam Summary: rectal exam : mild perianal erythema, no masses, no external hemorrhoids, no skin lesions. Sphincter tone mildly decreased , no prolapse. Internal hemorrhoids palpable, no rectal mass. Ampule was empty Triage Information Reviewed: Yes Appearance: Well-Appearing, No Pain Distress, Well-Nourished Vital Signs: Initial Vital Signs Temp 97.6 F 12/29/17 14:56 Pulse 65 12/29/17 14:56 Resp 18 12/29/17 14:56 BP 132/91 12/29/17 14:56 Pulse Ox 100 12/29/17 14:56 Vital Signs Reviewed: Yes Eyes: Positive: Conjunctiva Clear ENT: Positive: Hearing grossly normal, Pharynx normal Neck: Positive: Supple, Nontender Respiratory: Positive: Chest non-tender, Lungs clear, Normal breath sounds, No respiratory distress Cardiovascular: Positive: RRR, No Murmur, Pulses Normal, Brisk Capillary Refill Abdomen Description: Positive: Nontender, No Organomegaly, Soft Bowel Sounds: Positive: Present Musculoskeletal: Positive: Strength Intact, ROM Intact Rectal Pain Course/Dx - Course Course Of Treatment: patient with rectal pain, with BRBPR, start ibuprofen, anusol cream, sitz bath and ice packs prn. Follow up with [employer] senior officer within 2 weeks. Patient requests note to be excused from work for 3 days. - Differential Dx/Diagnosis Provider Diagnoses: Hemorrhoids Discharge - Sign-Out/Discharge Documenting (check all that apply): Patient Departure All imaging exams completed and their final reports reviewed: No Studies - Discharge Plan Condition: Stable Disposition: HOME Referrals: Roge Tarango MD [Primary Care Provider] - - Billing Disposition and Condition Condition: STABLE Disposition: Home
== END 2017-12-29 15:39 | disposition home or self-care (01) ==
LOC: UCEAST 14:49
DX: K64.9 Unspecified hemorrhoids (principal); Z95.5 Presence of coronary angioplasty implant and graft; Z87.891 Personal history of nicotine dependence
CPT/HCPCS: 99212; G0463

== ENCOUNTER 2018-05-17 17:05 | Emergency (ER) | payer OTHER ==
--- OUTSIDE RECORDS SUMMARY | 2018-05-17 17:23 | XMS REPORT | Continuity of Care Document ---
:1965 External Reference #:[id number] Author Name Mag Catherinegie Care Team Providers Name Role Phone Luz Maria Tarango MD Primary Care Physician Unavailable Payers Type Date Identification Numbers Payment Provider Subscriber Policy Number: [id number] Herson Dasilva Group Number: [id number] PayID: [id number] [place] [address] Advance Directives Description No Information Available Problems Date Description Provider Status Onset: 07/10/2012 [...] Active Onset: 08/10/2013 Chronic diastolic heart failure [facility] ECHO Schedule Active Onset: 08/17/2013 ROCAEL Haynes Active Family History Date Family Member(s) Problem(s) Comments Children 2 girls. 19 & 21 in good health. Siblings 3 sisters, 1 brother. One brother . All others have diabetes. Oldest sister has cardiac stent. 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 day Lisinopril 07/11/ Active Tablets 5mg 90tabs 1 by Brooke Foy 2017 mouth Talon, every N.P. day Cartia XT 11/17/ Active Caps ER 24HR 120mg 180cap 1 po qd I10 Anthony 2015 s Mahendra Adorno M.D. Pantoprazole 07/28/ Active Tablets DR 40mg 30tabs take one Anthony Sodium 2013 tablet Mahendra Adorno by mouth M.DTracy every day Aspirin DR 07/10/ Active Tablets DR 81mg 1 po qd Other 2012 Ordering Provider Novolin 70/30 07/10/ Active Suspension (70-30)100 30unit per Other 2012 Unit/ML s scale Ordering Provider Janumet 07/10/ Active Tablets 50-1000mg 60tabs 1 po bid Other 2012 Ordering Provider Plavix 06/28/ Active Tablets 75mg 90tabs 1 by Brooke Foy 2012 mouth Talon, every N.P. day Fish Oil / Active Capsules 1000mg 1 by Unknown 0000 mouth every day Bupropion HCL / Active Tablets ER 150mg 1 by [place], ER (SR) 0000 12HR mouth Luz Maria every MD day Metoprolol / Active Tablets 25mg 180tab 1 by Anthony Tartrate 0000 s peter Adorno, twice a M.D. day Atorvastatin 11/11/ Hx Tablets 40mg 1 by Anthony Calcium 2017 - mouth F. Mauser, 11/12/ every M.D. 2017 day Atorvastatin 02/18/ Hx Tablets 10mg 30tabs 1 by Anthony Calcium 2016 - mouth F. Mauser, 11/10/ every M.D. 2017 day Amlodipine 08/15/ Hx Tablets 2.5mg 60tabs 2 by [email or web address] Anthony Besylate 2015 - mouth F. Mauser, 11/17/ every M.D. 2015 day Magnesium 03/08/ Hx Tablets 400mg 90tabs [...] Tablets 40mg 90tabs 1/2 tab Anthony Calcium 2012 - by mouth F. Mauser, 03/07/ every M.D. 2015 day Atorvastatin 08/26/ Hx Tablets 40mg 90tabs 1 po qd Debbie Calcium 2012 - Thang, 02/24/ D.O. 2012 Simvastatin 07/10/ Hx Tablets 40mg 90tabs 1 po qhs Other 2013 - Ordering 07/10/ Provider 2013 Atorvastatin 07/10/ Hx Tablets 20mg 90tabs take 1 Other Calcium 2013 - tablet Ordering 08/26/ at Provider 2013 bedtime Imdur 07/10/ Hx Tablets ER 30mg 90tabs 1 by Anthony 2012 - 24HR mouth F. Mauser, 02/18/ every M.D. 2013 day Toprol XL 07/10/ Hx Tablets ER 50mg 60tabs 1 by Anthony 2012 - 24HR mouth F. Mauser, 07/28/ twice a M.D. 2013 day Carvedilol 03/10/ Hx Tablets 25mg 180tab 1 po bid Jose D Verde 2011 - s Luis, 07/10/ M.D., 2013 FAC, FASLA Lisinopril 03/10/ Hx Tablets 20mg 30tabs take one Anthony 2011 - tablet F. Kyree, 07/11/ by mouth M.D. 2017 day Livalo / Hx Tablets 1mg 90tabs 1 by Unknown 0000 - mouth 02/17/ every 2016 day Medications Administered in Office Medication Date Status Form Strength Qnty SIG Indications Ordering Provider Depomedrol Administered Injection Debbie 40MG Harish Franklin M.D. Immunizations Description No Information Available Vital Signs Date Vital Result Comment 04/28/2018 8:47am Height 69 inches 5'9" Weight 216.38 lb Heart Rate 72 /min BP Systolic Sitting 138 mmHg BP Diastolic Sitting 86 mmHg BMI (Body Mass Index) 31.9 kg/m2 Ejection Fraction 55-60% 08/10/13 Echo 02/03/2018 8:43am Height 69 inches 5'9" Weight 211.00 lb w/ shoes Heart Rate 66 /min BP Systolic Sitting 132 mmHg Lue Reg Cuff BP Diastolic Sitting 92 mmHg Lue Reg Cuff BMI (Body Mass Index) 31.2 kg/m2 Ejection Fraction 55-60% ECHO 08/10/13 12/10/2017 8:59am Height 69 inches 5'9" Weight 211.25 lb with shoes Heart Rate 72 /min BP Systolic Sitting 130 mmHg Rue reg cuff BP Diastolic Sitting 88 mmHg Rue reg cuff BP Systolic Standing 130 mmHg Rue reg cuff BP Diastolic Standing 90 mmHg Rue reg cuff Respiratory Rate 16 /min BMI (Body Mass Index) 31.2 kg/m2 09/11/2017 8:42am Height 69 inches Weight 216.25 lb w/shoes Heart Rate 76 /min BP Systolic Sitting 128 mmHg ;ue reg cuff BP Diastolic Sitting 78 mmHg ;ue reg cuff BMI (Body Mass Index) 31.9 kg/m2 Ejection Fraction 55-60% echo 08/10/2013 07/11/2017 12:59pm Height 69 inches 5'9" Weight 208.50 lb w/shoes Heart Rate 68 /min BP Systolic Sitting 110 mmHg L/A reg cuff BP Diastolic Sitting 72 mmHg L/A reg cuff BMI (Body Mass Index) 30.8 kg/m2 Ejection Fraction 40% Stress Test 06/17/2017 02/18/2017 9:11am Height 69 inches 5'9" Weight 207.38 lb with shoes Heart Rate 72 /min BP Systolic Sitting 150 mmHg LA reg cuff BP Diastolic Sitting 88 mmHg LA reg cuff BP Systolic Standing 126 mmHg la sitting repeat BP Diastolic Standing 74 mmHg la sitting repeat BMI (Body Mass Index) 30.6 kg/m2 Ejection Fraction 55-60% echo 08/10/13 05/01/2016 8:41am Height 69 inches 5'9" Weight 205.75 lb w/o shoes Heart Rate 88 /min BP Systolic Sitting 128 mmHg LA lrg cuff BP Diastolic Sitting 68 mmHg LA lrg cuff BMI (Body Mass Index) 30.4 kg/m2 Ejection Fraction 50% - 55% echo 08/10/13 11/22/2015 10:16am Height 69 inches 5'9" Weight 199.00 lb w/ shoes Heart Rate 70 /min reg BP Systolic Sitting 136 mmHg Rue, reg cuff BP Diastolic Sitting 86 mmHg Rue, reg cuff BP Systolic Standing 140 mmHg Rue BP Diastolic Standing 90 mmHg Rue Respiratory Rate 16 /min BMI (Body Mass Index) 29.4 kg/m2 Ejection Fraction 55-60% as of 08/10/13 echo 11/18/2015 1:38pm Height 69 inches 5'9" Weight 196.00 lb w/shoes Heart Rate 94 /min BP Systolic Sitting 142 mmHg LA reg cuff BP Diastolic Sitting 102 mmHg LA reg cuff BMI (Body Mass Index) 28.9 kg/m2 Ejection Fraction 55-60% Echo 08/10/13 08/30/2015 9:14am Height 69 inches 5'9" Weight 198.00 lb w/o shoes Heart Rate 100 /min reg BP Systolic Sitting 130 mmHg Lue, reg cuff BP Diastolic Sitting 72 mmHg Lue, reg cuff BP Systolic Standing 124 mmHg Lue BP Diastolic Standing 76 mmHg Lue Respiratory Rate 20 /min BMI (Body Mass Index) 29.2 kg/m2 Ejection Fraction 55-60% as of 08/10/13 echo 08/16/2015 2:21pm Height 69 inches 5'9" Weight 199.00 lb w/shoes Heart Rate 88 /min BP Systolic Sitting 138 mmHg LA reg cuff BP Diastolic Sitting 90 mmHg LA reg cuff BMI (Body Mass Index) 29.4 kg/m2 Ejection Fraction 62% NLM 09/15/13 05/30/2015 9:46am Height 69 inches 5'9" Weight 210.00 lb BP Systolic Sitting 132 mmHg BP Diastolic Sitting 64 mmHg Respiratory Rate 16 /min Pain Level 8 BMI (Body Mass Index) 31.0 kg/m2 01/03/2015 8:49am Height 69 inches 5'9" Weight 202.00 lb w/shoess Heart Rate 80 /min BP Systolic Sitting 138 mmHg LA reg cuff BP Diastolic Sitting 92 mmHg LA reg cuff BP Systolic Standing 121 mmHg la repeat BP Diastolic Standing 76 mmHg la repeat BMI (Body Mass Index) 29.8 kg/m2 Ejection Fraction 62 NLM 09/15/13 03/17/2014 2:28pm Height 69 inches 5'9" Weight 208.00 lb Heart Rate 86 /min BP Systolic 128 mmHg repeat BP Diastolic 82 mmHg repeat BP Systolic Sitting 138 mmHg LA, reg BP Diastolic Sitting 92 mmHg LA, reg BMI (Body Mass Index) 30.7 kg/m2 01/07/2014 3:21pm Height 69 inches 5'9" Weight 208.25 lb Heart Rate 88 /min BP Systolic 122 mmHg LA reg cuff BP Diastolic 82 mmHg LA reg cuff BMI (Body Mass Index) 30.7 kg/m2 09/29/2013 2:33pm Height 69 inches 5'9" Weight 209.25 lb Heart Rate 84 /min BP Systolic Sitting 124 mmHg BP Diastolic Sitting 86 mmHg Respiratory Rate 16 /min BMI (Body Mass Index) 30.9 kg/m2 08/31/2013 3:04pm Height 69 inches 5'9" Weight 210.00 lb Heart Rate 80 /min BP Systolic Sitting 120 mmHg LA reg cuff BP Diastolic Sitting 88 mmHg LA reg cuff BP Systolic Standing 120 mmHg LA reg cuff BP Diastolic Standing 90 mmHg LA reg cuff Respiratory Rate 17 /min BMI (Body Mass Index) 31.0 kg/m2 08/17/2013 10:01am Height 69 inches 5'9" Weight 213.00 lb with shoes Heart Rate 80 /min BP Systolic Sitting 130 mmHg LA reg cuff BP Diastolic Sitting 90 mmHg LA reg cuff BP Systolic Standing 130 mmHg LA reg cuff BP Diastolic Standing 92 mmHg LA reg cuff Respiratory Rate 17 /min BMI (Body Mass Index) 31.5 kg/m2 08/12/2013 9:46am Height 69 inches 5'9" Weight 210.25 lb [...] BMI (Body Mass Index) 31.0 kg/m2 07/28/2013 9:56am Height 69 inches 5'9" Weight 209.00 lb Heart Rate 68 /min BP Systolic Sitting 150 mmHg BP Diastolic Sitting 98 mmHg BMI (Body Mass Index) 30.9 kg/m2 02/24/2013 12:58pm Height 69 inches 5'9" Weight 207.00 lb Heart Rate 72 /min Regular BP Systolic Sitting 130 mmHg BP Diastolic Sitting 92 mmHg BMI (Body Mass Index) 30.6 kg/m2 08/26/2012 1:32pm Height 69 inches 5'9" Weight 209.38 lb Heart Rate 80 /min Regular BP Systolic Sitting 124 mmHg BP Diastolic Sitting 92 mmHg BMI (Body Mass Index) 30.9 kg/m2 07/10/2012 2:56pm Height 69 inches 5'9" Weight 206.00 lb Heart Rate 76 /min BP Systolic Sitting 92 mmHg BP Diastolic Sitting 70 mmHg BMI (Body Mass Index) 30.4 kg/m2 07/10/2012 2:43pm Heart Rate 76 /min BP Systolic Sitting 92 mmHg BP Diastolic Sitting 70 mmHg Results Test Date Facility Test Result H/L Range Note Laboratory test 02/04/2018 [facility] Erythrocyte Sed 13 mm/Hr N 0-20 [address] [place] [address] [phone] C Reactive Protein 2.80 mg/L N <8.01 2 CBC Auto Diff 02/04/2018 [facility] White Blood 8.9 10^3/uL N 3.5-10.[address] [place] [address] [phone] Red Blood Count 5.29 10^6/uL N 4.00-5.40 Hemoglobin 13.2 g/dL Low 14.0-18.0 Hematocrit 40 % Low 42-52 Mean Corpuscular Volume 76 fL Low 80-94 Mean Corpuscular Hemoglobin 25 pg Low 27-31 Mean Corpuscular HGB Conc 33 g/dL N 31-36 Red Cell Distribution Width 17 % High 10.5-15 Platelet Count 336 10^3/uL N 150-450 Mean Platelet Volume 7.7 fL N 7.4-10.4 Abs Neutrophils 5.8 10^3/uL N 1.5-7.7 Abs Lymphocytes 2.1 10^3/uL N 1.0-4.8 Abs Monocytes 0.8 10^3/uL N 0-0.8 Abs Eosinophils 0.1 10^3/uL N 0-0.6 Abs Basophils 0.1 10^3/uL N 0-0.2 Abs Nucleated RBC 0 10^3/uL Granulocyte % 65.1 % N 38-83 Lymphocyte % 24.0 % Low 25-47 Monocyte % 8.8 % High 0-7 Eosinophil % 1.4 % N 0-6 Basophil % 0.7 % N 0-2 Nucleated Red Blood Cells % 0.1 Basic Metabolic Panel 02/04/2018 [facility] Sodium 135 mmol/L N 135-[address] [place] [address] [phone] Potassium 5.0 mmol/L N 3.5-5.0 Chloride 103 mmol/L N 101-111 Co2 Carbon Dioxide 25 mmol/L N 22-32 Anion Gap 7 mmol/L N 2-11 Glucose 246 mg/dL High 70-100 Blood Urea Nitrogen 15 mg/dL N 6-24 Creatinine 0.77 mg/dL N 0.67-1.17 BUN/Creatinine Ratio 19.5 N 8-20 Calcium 9.5 mg/dL N 8.6-10.3 Egfr Non- 105.7 >60 Egfr 127.9 >60 3 Laboratory test 02/04/2018 [facility] Troponin-I 0.00 ng/mL < 0.04 4 finding [address] [facility] ([facility] [place] [address] [phone] Iron & Iron 02/04/2018 [facility] Iron 40 g/dL Low 50-212 Binding Capacity [address] [place] [address] [phone] Unsaturated Iron Binding < 461 g/dL Total Iron Binding Capacity 476 g/dL High 250-450 Transferrin 340 mg/dL N 203-362 % Iron Saturation 8 % Low 15-55 Laboratory test 02/04/2018 [facility] Ferritin 7.3 ng/mL Low 24-336 5 finding [address] [place] [address] [phone] Lipid Panel - 12/17/2017 [facility] Creatine 53 U/L N 10-223 6 JFM [address] [facility] Kinase(CK) [place] [address] [phone] Comp Metabolic 12/17/2017 [facility] Sodium 138 mmol/L N 135- 145 Panel [address] [place] [address] [phone] Potassium 4.7 mmol/L N 3.5-5.0 Chloride 104 mmol/L N 101-111 Co2 Carbon Dioxide 26 mmol/L N 22-32 Anion Gap 8 mmol/L N 2-11 Glucose 165 mg/dL High 70-100 Blood Urea Nitrogen 16 mg/dL N 6-24 Creatinine 0.82 mg/dL N 0.67-1.17 BUN/Creatinine Ratio 19.5 N 8-20 Calcium 9.6 mg/dL N 8.6-10.3 Total Protein 6.9 g/dL N 6.4-8.9 Albumin 4.0 g/dL N 3.2-5.2 Globulin 2.9 g/dL N 2-4 Albumin/Globulin Ratio 1.4 N 1-3 Total Bilirubin 0.60 mg/dL N 0.2-1.0 Alkaline Phosphatase 66 U/L N 34-104 Alt 14 U/L N 7-52 Ast 12 U/L Low 13-39 Egfr Non- 98.3 >60 Egfr 118.9 >60 7 Lipid Profile 12/17/2017 [facility] Triglycerides 252 mg/dL 8 (Trig/Chol/HDL) [address] [place] [address] [phone] Cholesterol 113 mg/dL 9 HDL Cholesterol 25.2 mg/dL 10 LDL Cholesterol 37 mg/dL 11 Laboratory test 09/16/2017 [facility] LDL Cholesterol 111 mg/dL [address] [place] [address] [phone] CBC Auto Diff 09/16/2017 [facility] White Blood Count 7.6 10^3/ uL N 3.5-[address] 0.8 [place] [address] [phone] Red Blood Count 5.13 10^6/uL N 4.00-5.40 Hemoglobin 13.5 g/dL Low 14.0-18.0 Hematocrit 40 % Low 42-52 Mean Corpuscular Volume 78 fL Low 80-94 Mean Corpuscular Hemoglobin 26 pg Low 27-31 Mean Corpuscular HGB Conc 34 g/dL N 31-36 Red Cell Distribution Width 16 % High 10.5-15 Platelet Count 340 10^3/uL N 150-450 Mean Platelet Volume 7.4 um3 N 7.4-10.4 Abs Neutrophils 3.7 10^3/uL N 1.5-7.7 Abs Lymphocytes 3.0 10^3/uL N 1.0-4.8 Abs Monocytes 0.8 10^3/uL N 0-0.8 Abs Eosinophils 0.1 10^3/uL N 0-0.6 Abs Basophils 0.1 10^3/uL N 0-0.2 Abs Nucleated RBC 0 10^3/uL Granulocyte % 48.0 % N 38-83 Lymphocyte % 39.3 % N 25-47 Monocyte % 10.3 % High 0-7 Eosinophil % 1.7 % N 0-6 Basophil % 0.7 % N 0-2 Nucleated Red Blood Cells % 0.1 Lipid Profile 09/16/2017 [facility] Triglycerides 435 mg/dL 13 (Trig/Chol/HDL) [address] [place] [address] [phone] Cholesterol 186 mg/dL 14 HDL Cholesterol 29.3 mg/dL 15 LDL Cholesterol (SEE NOTE) mg/dL 16 Comp Metabolic Panel 09/16/2017 [facility] Sodium 138 mmol/L N 135-[address] [place] [address] [phone] Potassium 4.4 mmol/L N 3.5-5.0 Chloride 104 mmol/L N 101-111 Co2 Carbon Dioxide 24 mmol/L N 22-32 Anion Gap 10 mmol/L N 2-11 Glucose 159 mg/dL High 70-100 Blood Urea Nitrogen 23 mg/dL N 6-24 Creatinine 0.83 mg/dL N 0.67-1.17 BUN/Creatinine Ratio 27.7 High 8-20 Calcium 9.5 mg/dL N 8.6-10.3 Total Protein 6.9 g/dL N 6.4-8.9 Albumin 3.9 g/dL N 3.2-5.2 Globulin 3.0 g/dL N 2-4 Albumin/Globulin Ratio 1.3 N 1-3 Total Bilirubin 0.60 mg/dL N 0.2-1.0 Alkaline Phosphatase 72 U/L N 34-104 Alt 14 U/L N 7-52 Ast 12 U/L Low 13-39 Egfr Non- 96.9 >60 Egfr 124.6 >60 17 Lipid Panel - JFM 09/16/2017 [facility] Creatine 66 U/L N 10- [address] Kinase(CK) [place] [address] [phone] Laboratory test 04/28/2015 [facility] Troponin-I (TnI) 0.00 N <0.03 [address] ng/[place] [address] [phone] Lactic Acid 2.4 mmol/L High 0.5-2.0 19 Comp Metabolic Panel 04/28/2015 [facility] Sodium 133 mmol/L N 133-[address] [place] [address] [phone] Potassium 3.8 mmol/L N 3.5-5.0 Chloride 98 mmol/L Low 101-111 Co2 Carbon Dioxide 26 mmol/L N 22-32 Anion Gap 9 mmol/L N 2-11 Glucose 198 mg/dL High 70-100 Blood Urea Nitrogen 18 mg/dL N 6-24 Creatinine 0.85 mg/dL N 0.67-1.17 BUN/Creatinine Ratio 21.2 High 8-20 Calcium 9.4 mg/dL N 8.6-10.3 Total Protein 7.1 g/dL N 6.4-8.9 Albumin 4.2 g/dL N 3.2-5.2 Globulin 2.9 g/dL N 2-4 Albumin/Globulin Ratio 1.4 N 1-3 Total Bilirubin 0.50 mg/dL N 0.2-1.0 Alkaline Phosphatase 56 U/L N 34-104 Alt 20 U/L N 7-52 Ast 16 U/L N 13-39 Egfr Non- 95.0 N >60 Egfr 122.2 N >60 20 CBC Auto Diff 04/28/2015 [facility] White Blood 9.3 10^3/uL N 3.5-10.[address] [place] [address] [phone] Red Blood Count 5.19 10^6/uL N 4.0-5.4 Hemoglobin 16.0 g/dL N 14.0-18.0 Hematocrit 48 % N 42-52 Mean Corpuscular Volume 92 fL N 80-94 Mean Corpuscular Hemoglobin 31 pg N 27-31 Mean Corpuscular HGB Conc 34 g/dL N 31-36 Red Cell Distribution Width 14 % N 10.5-15 Platelet Count 278 10^3/uL N 150-450 Mean Platelet Volume 8 um3 N 7.4-10.4 Abs Neutrophils 6.0 10^3/uL N 1.5-7.7 Abs Lymphocytes 2.5 10^3/uL N 1.0-4.8 Abs Monocytes 0.6 10^3/uL N 0-0.8 Abs Eosinophils 0.1 10^3/uL N 0-0.6 Abs Basophils 0.1 10^3/uL N 0-0.2 Abs Nucleated RBC 0.01 10^3/uL N Granulocyte % 64.8 % N 38-83 Lymphocyte % 26.3 % N 25-47 Monocyte % 6.8 % N 1-9 Eosinophil % 1.2 % N 0-6 Basophil % 0.9 % N 0-2 Nucleated Red Blood Cells % 0.1 N Laboratory test 04/28/2015 [facility] Lactic Acid 1.9 mmol/L N 0.5-2.0 [address] [place] [address] [phone] Troponin-I (TnI) 0.00 ng/mL N <0.03 22 Laboratory test 02/28/2015 [facility] Magnesium 1.6 mg/dL Low 1.9-2.[address] [place] [address] [phone] TSH (Thyroid Stim Horm) 1.06 ?IU/mL N 0.34-5.60 Vitamin B12 1068 pg/mL High 180-914 23 Vitamin D Total 25(Oh) 28.6 ng/mL Low 30-50 Urine Microalbumin 02/28/2015 [facility] Urine Creatinine 118.80 mg/dL N Random [address] [place] [address] [phone] Ur Microalbumin (mg/L) 331.0 mg/L N Urine Microalbumin/Creatinine 278.6 ug/mg High <31 CBC Auto 02/28/2015 [facility] White Blood 14.5 10^3/uL High 4.8-10.[address] [place] [address] [phone] Red Blood Count 5.52 10^6/uL High 4.0-5.4 Hemoglobin 17.1 g/dL N 14.0-18.0 Hematocrit 50 % N 42-52 Mean Corpuscular Volume 91 fL N 80-94 Mean Corpuscular Hemoglobin 31 pg N 27-31 Mean Corpuscular HGB Conc 34 g/dL N 31-36 Red Cell Distribution Width 14 % N 10.5-15 Platelet Count 283 10^3/uL N 150-450 Mean Platelet Volume 7 um3 Low 7.4-10.4 Abs Neutrophils 11.4 10^3/uL High 1.5-7.7 Abs Lymphocytes 2.2 10^3/uL N 1.0-4.8 Abs Monocytes 0.8 10^3/uL N 0-0.8 Abs Eosinophils 0.1 10^3/uL N 0-0.6 Abs Basophils 0.1 10^3/uL N 0-0.2 Abs Nucleated RBC 0.05 10^3/uL N Granulocyte % 78.4 % N 38-83 Lymphocyte % 15.1 % Low 25-47 Monocyte % 5.2 % N 1-9 Eosinophil % 0.8 % N 0-6 Basophil % 0.5 % N 0-2 Nucleated Red Blood Cells % 0.4 N Lipid Profile 02/28/2015 [facility] Triglycerides 390 mg/dL N 24 (Trig/Chol/HDL) [address] [place] [address] [phone] Cholesterol 206 mg/dL N 25 HDL Cholesterol 29.5 mg/dL N 26 LDL Cholesterol 99 mg/dL N 27 Comp Metabolic Panel 02/28/2015 [facility] Sodium 134 mmol/L N 133-[address] [place] [address] [phone] Potassium 4.2 mmol/L N 3.5-5.0 Chloride 100 mmol/L Low 101-111 Co2 Carbon Dioxide 25 mmol/L N 22-32 Anion Gap 9 mmol/L N 2-11 Glucose 137 mg/dL High 70-100 Blood Urea Nitrogen 19 mg/dL N 6-24 Creatinine 0.82 mg/dL N 0.67-1.17 BUN/Creatinine Ratio 23.2 High 8-20 Calcium 9.8 mg/dL N 8.6-10.3 Total Protein 7.4 g/dL N 6.4-8.9 Albumin 4.4 g/dL N 3.2-5.2 Globulin 3.0 g/dL N 2-4 Albumin/Globulin Ratio 1.5 N 1-3 Total Bilirubin 0.60 mg/dL N 0.2-1.0 Alkaline Phosphatase 63 U/L N 34-104 Alt 18 U/L N 7-52 Ast 15 U/L N 13-39 Egfr Non- 99.5 N >60 Egfr 127.9 N >60 28 Lipid Panel - 02/28/2015 [facility] Creatine 55 U/L N 10-[address] Kinase(CK) [place] [address] [phone] Basic Metabolic 09/06/2014 [facility] Sodium 136 N 133-[address] mmol/[place] [address] [phone] Potassium 4.6 mmol/L N 3.5-5.0 Chloride 102 mmol/L N 101-111 Co2 Carbon Dioxide 27 mmol/L N 22-32 Anion Gap 7 mmol/L N 2-11 Glucose 92 mg/dL N 70-100 Blood Urea Nitrogen 16 mg/dL N 6-24 Creatinine 0.78 mg/dL N 0.67-1.17 BUN/Creatinine Ratio 20.5 High 8-20 Calcium 9.9 mg/dL N 8.6-10.3 Egfr Non- 105.4 N >60 Egfr 135.5 N >60 29 Order 08/10/2013 [facility] Pulse Oximetry <pending> [address] [place] [address] [phone] Lipid Panel 07/07/2013 [facility] Creatine Kinase 48 U/L N 10- 223 30, 31 - JFM [address] [place] [address] [phone] CBC Auto 07/07/2013 [facility] White Blood 9.9 10^3/uL N 4.8- [address] Count .8 [place] [address] [phone] Red Blood Count 5.51 10^6/uL High 4.0-5.4 Hemoglobin 17.4 g/dL N 14.0-18.0 Hematocrit 50 % N 42-52 Mean Corpuscular Volume 90 fL N 80-94 Mean Corpuscular Hemoglobin 32 pg High 27-31 Mean Corpuscular HGB Conc 35 g/dL N 31-36 Red Cell Distribution Width 13 % N 10.5-15 Platelet Count 251 10^3/uL N 150-450 Mean Platelet Volume 8 um3 N 7.4-10.4 Abs Neutrophils 5.6 10^3/uL N 1.5-7.7 Abs Lymphocytes 3.2 10^3/uL N 1.0-4.8 Abs Monocytes 0.8 10^3/uL N 0-0.8 Abs Eosinophils 0.2 10^3/uL N 0-0.6 Abs Basophils 0.1 10^3/uL N 0-0.2 Abs Nucleated RBC 0 10^3/uL N Granulocyte % 55.9 % N 38-83 Lymphocyte % 32.6 % N 25-47 Monocyte % 8.3 % N 1-9 Eosinophil % 2.0 % N 0-6 Basophil % 1.2 % N 0-2 Nucleated Red Blood Cells % 0 N Comp Metabolic Panel 07/07/2013 [facility] Sodium 135 mmol/L N 133-[address] [place] [address] [phone] Potassium 4.6 mmol/L N 3.7-5.6 Chloride 100 mmol/L Low 101-111 Co2 Carbon Dioxide 28 mmol/L N 22-32 Anion Gap 7 mmol/L N 2-11 Glucose 224 mg/dL High 70-100 Blood Urea Nitrogen 18 mg/dL N 6-24 Creatinine 0.76 mg/dL N 0.67-1.17 BUN/Creatinine Ratio 23.7 High 8-20 Calcium 9.5 mg/dL N 8.6-10.3 Total Protein 7.1 g/dL N 6.4-8.9 Albumin 4.4 g/dL N 3.2-5.2 Globulin 2.7 g/dL N 2-4 Albumin/Globulin Ratio 1.6 N 1-3 Total Bilirubin 0.90 mg/dL N 0.2-1.0 Alkaline Phosphatase 57 U/L N 34-104 Alt 15 U/L N 7-52 Ast 12 U/L Low 13-39 Egfr Non- 109.0 N >60 Egfr 140.2 N >60 32 Lipid Profile 07/07/2013 [facility] Triglycerides 446 mg/dL N 33 (Trig/Chol/HDL) [address] [place] [address] [phone] Cholesterol 144 mg/dL N 34 HDL Cholesterol 25.7 mg/dL N 35 LDL Cholesterol (SEE NOTE) mg/dL N 36 Laboratory test 07/07/2013 [facility] Vitamin B12 1139 pg/mL High 180-914 [address] [place] [address] [phone] TSH (Thyroid Stimulating Horm) 0.56 IU/mL N 0.34-5.60 38 Luteinizing Hormone 6.7 IU/mL N 2-12 39 Prolactin 9.2 ng/mL N 1.0-20.0 40 Vitamin D, 25 07/07/2013 [facility] 25-Hydroxy Vitamin <4.0 ng/ mL N Hydroxy [address] D[address] [place] [address] [phone] 25-Hydroxy Vitamin D3 42 ng/mL N 25-Hydroxy Vitamin D Total 42 ng/mL N 41 Miscellaneous Test 07/07/2013 [facility] Test Name TEST FREE BY NASRA N [address] <SEE NOTE> [place] [address] [phone] Result 100 N 43 Reference Range 52-280 N 44 Urine Microalbumin 07/07/2013 [facility] Ur Microalbumin 196.0 N <30 [address] (mg/L) mg/dL [place], [place] [id number] [phone] Urine Creatinine 99.30 mg/dL N Urine Microalbumin/Creatinine 197.3 High Less Than 31 Lipid Profile 03/24/2013 [facility] Triglycerides 222 mg/dL High 40-200 (Trig/Chol/HDL) [address] [place], [place] [id number] [phone] Cholesterol 140 mg/dL Less than 200 HDL Cholesterol 34 mg/dL Low 40-60 46 Cholesterol/HDL Ratio 4.1 Average 1-4.44 LDL Cholesterol 61.6 Less Than 100 47 Laboratory test finding 03/24/2013 [facility] Alt 24 U/L 14- [address] [place] [address] [phone] Ast 18 U/L 12-42 49 Comp Metabolic Panel 02/09/2013 [facility] Sodium 133 mmol/L 133-[address] [place] [address] [phone] Potassium 4.3 mmol/L 3.5-5.0 Chloride 99 mmol/L [...] Non- 120.4 >60 Egfr 154.8 >60 50 Lipid Profile 02/09/2013 [facility] Triglycerides 253 mg/dL High 40-200 (Trig/Chol/HDL) [address] [place] [address] [phone] Cholesterol 168 mg/dL Less than 200 HDL Cholesterol 34 mg/dL Low 40-60 51 Cholesterol/HDL Ratio 4.9 Average High 1-4.44 LDL Cholesterol 83.4 Less Than 100 52 Laboratory test 02/09/2013 [facility] Vitamin B12 563 pg/mL 180-[address] [place] [address] [phone] TSH (Thyroid Stimulating Horm) 0.64 miu/mL 0.34-5.60 54 Vitamin D, 25 02/09/2013 [facility] 25-Hydroxy Vitamin <4.0 ng/ mL Hydroxy [address] [place] [address] [phone] 25-Hydroxy Vitamin D3 51 ng/mL 25-Hydroxy Vitamin D Total 51 ng/mL 55 Urine Microalbumin 02/09/2013 [facility] Ur Microalbumin 206.0 mg/L 56 Random 101 [facility] (mg/L) [place] [address] [phone] Urine Creatinine 160.6 mg/dL Urine Microalbumin/Creatinine 128.3 High Less Than 31 Lipid Profile 11/11/2012 [facility] Triglycerides 301 mg/dL High 40-200 (Trig/Chol/HDL) [address] [place] [address] [phone] Cholesterol 132 mg/dL Less than 200 HDL Cholesterol 29 mg/dL Low 40-60 57 Cholesterol/HDL Ratio 4.6 Average High 1-4.44 LDL Cholesterol 42.8 Less Than 100 58 Laboratory test finding 11/11/2012 [facility] Ast 18 U/L 12- 42 59 [address] [place] [address] [phone] Alt 21 U/L 14-54 60 Comp Metabolic Panel 11/11/2012 [facility] Sodium 134 mmol/L 133-[address] [place] [address] [phone] Potassium 4.4 mmol/L 3.5-5.0 Chloride 102 mmol/L [...] Egfr Non- 120.4 >60 Egfr 154.8 >60 61 Laboratory test 11/11/2012 [facility] Vitamin B12 568 pg/mL 180-914 62 finding [address] [place] [address] [phone] TSH (Thyroid Stimulating Horm) 0.82 miu/mL 0.34-5.60 63 Vitamin D, 25 11/11/2012 [facility] 25-Hydroxy Vitamin <4.0 ng/ mL Hydroxy [address] [address] [phone] 25-Hydroxy Vitamin D3 53 ng/mL 25-Hydroxy Vitamin D Total 53 ng/mL 64 Lipid Profile 08/12/2012 [facility] Triglycerides 267 mg/dL High 40-200 (Trig/Chol/HDL) [address] [place] [address] [phone] Cholesterol 173 mg/dL Less than 200 HDL Cholesterol 37 mg/dL Low 40-60 65 Cholesterol/HDL Ratio 4.7 Average High 1-4.44 LDL Cholesterol 82.6 mg/dL Less Than 100 66 Laboratory test finding 08/12/2012 [facility] Alt 27 U/L 14- 54 [address] [place] [address] [phone] Ast 21 U/L 12-42 Comp Metabolic Panel 08/12/2012 [facility] Sodium 136 mmol/L 133-145 [address] [place] [address] [phone] Potassium 4.9 mmol/L 3.5-5.0 Chloride 104 mmol/L [...] Egfr Non- 120.4 >60 Egfr 154.8 >60 67 Vitamin D, 25 08/12/2012 [facility] 25-Hydroxy Vitamin <4.0 ng/ mL Hydroxy [address] [place] [address] [phone] 25-Hydroxy Vitamin D3 43 ng/mL 25-Hydroxy Vitamin D Total 43 ng/mL 68 Urine Microalbumin 08/12/2012 [facility] Ur Microalbumin 180.0 mg/L [address] (Mg/L) [place] [address] [phone] Urine Creatinine 109.1 mg/dL Urine Microalbumin/Creatinine 165.0 ug/mg High Less Than 31 Laboratory test 08/12/2012 [facility] Vitamin B12 582 pg/mL 180-914 [address] [place] [address] [phone] TSH (Thyroid Stimulating Horm) 0.59 miu/mL 0.34-5.60 71 1 Copy Result to: LUZ MARIA TARANGO ([id number]) 2 Copy Result to: LUZ MARIA TARANGO ([id number]) 3 Because ethnic data is not always readily [...] 15-29 5 Kidney failure <15 (or dialysis) 4 Copy Result to: LUZ MARIA TARANGO ([id number]) 5 Copy Result to: LUZ MARIA TARANGO ([id number]) 6 FASTING cc pmd in 1 m Copy Result to: LUZ MARIA TARANGO ([id number]) 7 Because ethnic data is not always readily [...] 15-29 5 Kidney failure <15 (or dialysis) 8 Desirable: <150 Borderline High: 150-199 High: 200-499 Very High: >500 9 Desirable: <200 Borderline High: 200-239 High: >239 10 Low: <40 Desirable: 40-60 High: >60 11 Desirable: <100 Near Optimal: 100-129 Borderline High: 130-159 High: 160-189 Very High: >189 12 Desirable: <100 Near Optimal: 100-129 Borderline High: 130-159 High: 160-189 Very High: >189 13 Desirable: <150 Borderline High: 150-199 High: 200-499 Very High: >500 14 Desirable: <200 Borderline High: 200-239 High: >239 15 Low: <40 Desirable: 40-60 High: >60 16 Unable to calculate LDL as triglyceride is > 400 17 Because ethnic data is not always readily [...] 15-29 5 Kidney failure <15 (or dialysis) 18 Reference Range and Interpretation: TnI (ng/mL) Interpretation Less Than 0.03 ng/mL Not supportive of diagnosis of [place] 0.03 - 0.50 ng/mL Indeterminate: suggest serial studies if clinically indicated. Greater than 0.5 ng/mL Consistent with diagnosis of [place] 19 Critical Result LACT:2.4 Called to LEONA/MARIO at: 17:06:20 by:[id number] Read back by:LEONA/MARIO [facility] Severe Sepsis and Septic Shock Management Bundle Measure requires all lactic acids initially measuring >2.0mmol/L be repeated. 20 Because ethnic data is not always readily [...] 15-29 5 Kidney failure <15 (or dialysis) 21 [facility] Severe Sepsis and Septic Shock Management Bundle Measure requires all lactic acids initially measuring >2.0mmol/L be repeated. 22 Reference Range and Interpretation: TnI (ng/mL) Interpretation Less Than 0.03 ng/mL Not supportive of diagnosis of [place] 0.03 - 0.50 ng/mL Indeterminate: suggest serial studies if clinically indicated. Greater than 0.5 ng/mL Consistent with diagnosis of [place] 23 Normal Range 180 to 914 Indeterminate Range 145 to 180 Deficient Range <145 24 Desirable <150 Borderline high 150-199 High 200-499 Very High >500 25 Desirable <200 Borderline high 200-239 High >239 26 Low <40 Desirable: 40-60 High: >60 27 Desirable: <100 mg/dL Near Optimal: 100-129 mg/dL Borderline High: 130-159 mg/dL High: 160-189 mg/dL Very High: >189 mg/dL 28 Because ethnic data is not always readily [...] 15-29 5 Kidney failure <15 (or dialysis) 29 Because ethnic data is not always readily [...] 15-29 5 Kidney failure <15 (or dialysis) 30 FASTING 31 FASTING 32 Because ethnic data is not always readily [...] 15-29 5 Kidney failure <15 (or dialysis) 33 Desirable <150 Borderline high 150-199 High 200-499 Very High >500 34 Desirable <200 Borderline high 200-239 High >239 35 Low <40 Desirable: 40-60 High: >60 36 Unable to calculate LDL as triglyceride is > 400 37 Normal Range 180 to 914 Indeterminate Range 145 to 180 Deficient Range <145 38 --- 07/07/13 0946 --- TSH previously reported as: 0.59 IU/mL 39 FASTING 40 FASTING 41 -- REFERENCE VALUE -- 25-HYDROXY D TOTAL (D2+D3) Optimum levels in the healthy population are 20-50, patients with bone disease may benefit from higher levels within this range. Test Performed by: [address] [address] [employer]: Humberto Harley III, M.D. 42 TEST FREE BY [facility] 43 Test performed at [facility] units: pg/mL total testosterone: 456 mg/dL (range: 348-1197) %free testosterone: 2.2 (range: 1.5-3.2) 44 Test performed at [facility] 45 Microalbuminuria in a random sample is [...] 5 Kidney failure <15 (or dialysis) 51 HDL Interpretation: Undesirable: High Risk: Less than 40 mg/dL Desirable: Low Risk: Greater than 60 mg/dL 52 LDL Interpretation: Low Risk Optimal Level: LDL Less than 100 mg/dL Near or Above Optimal: LDL 100-129 mg/dL Borderline High Risk: LDL 130-159 mg/dL High Risk: LDL 160-189 mg/dL Very High Risk: LDL Greater than 189 mg/dL 53 FASTING 54 FASTING 55 Interpretation: 51-80 ng/mL (increased risk of hypercalciuria) -- REFERENCE VALUE -- 25-HYDROXY D TOTAL (D2+D3) Optimum levels in the healthy population are 20-50, patients with bone disease may benefit from higher levels within this range. Test Performed by: [facility] [address] [address] [employer]: Humberto Harley III, M.D. 56 Microalbuminuria in a random sample is defined as: Microalbumin/Creatinine ratio of 30-299 ug/mg. 57 HDL Interpretation: Undesirable: High Risk: Less than 40 mg/dL Desirable: Low Risk: Greater than 60 mg/dL 58 LDL Interpretation: Low Risk Optimal Level: LDL Less than 100 mg/dL Near or Above Optimal: LDL 100-129 mg/dL Borderline High Risk: LDL 130-159 mg/dL High Risk: LDL 160-189 mg/dL Very High Risk: LDL Greater than 189 mg/dL 59 FASTING 60 FASTING 61 Because ethnic data is not always readily [...] 15-29 5 Kidney failure <15 (or dialysis) 62 FASTING 63 FASTING 64 -- REFERENCE VALUE -- 25-HYDROXY D TOTAL (D2+D3) Optimum levels in the normal population are 25-80 Test Performed by: [place] [address] [employer]: Humberto Harley III, M.D. 65 HDL Interpretation: Undesirable: High Risk: Less than 40 MG/DL Desirable: Low Risk: Greater than 60 MG/DL 66 LDL Interpretation: Low Risk Optimal Level: LDL Less than 100 MG/DL Near or Above Optimal: LDL 100-129 MG/DL Borderline High Risk: LDL 130-159 MG/DL High Risk: LDL 160-189 MG/DL Very High Risk: LDL Greater than 189 MG/DL 67 Because ethnic data is not always readily [...] 15-29 5 Kidney failure <15 (or dialysis) 68 -- REFERENCE VALUE -- 25-HYDROXY D TOTAL (D2+D3) Optimum levels in the normal population are 25-80 Test Performed by: [address] [address] [employer]: Humberto Harley III, M.D. 69 Microalbuminuria in a random sample is defined as: Microalbumin/Creatinine ratio of 30-299 ug/mg. 70 Fasting 71 Fasting Procedures Date Code Description Status 04/28/2018 64860 EKG Tracing & Interpretation Completed 02/03/2018 23293 EKG Tracing & Interpretation Completed 09/11/2017 45523 EKG Tracing & Interpretation Completed 07/11/2017 82823 EKG Tracing & Interpretation Completed 06/19/2017 81711 Left Heart Cath. Incl S/I Coronaries, Angio S/I V Gram If Completed Done 06/17/2017 18606 Treadmill Interp/Report Only Completed 06/17/2017 65347 Stress Test Supervsn W/Out I/R Completed 06/17/2017 92456 EKG, Interpretation Only Completed 06/16/2017 61333 EKG, Interpretation Only Completed 02/18/2017 76623 EKG Tracing & Interpretation Completed 05/01/2016 20603 EKG Tracing & Interpretation Completed 11/18/2015 89638 EKG Tracing & Interpretation Completed 08/16/2015 99442 EKG Tracing & Interpretation Completed 05/30/2015 23347 Inject Tendon Sheath Or Ligament Aponeurosis Eg Plantar Completed Fascia 05/13/2015 73021 Stress Test Supervsn W/Out I/R Completed 05/13/2015 56152 Treadmill Interp/Report Only Completed 01/03/2015 92580 EKG Tracing & Interpretation Completed 03/17/2014 71516 EKG Tracing & Interpretation Completed 10/17/2013 97124 EKG, Interpretation Only Completed 09/14/2013 92224 Treadmill Interp/Report Only Completed 09/14/2013 40748 Stress Test Supervsn W/Out I/R Completed 08/10/2013 65335 ECHO Transthoracic, Real-Time 2D With Doppler And Color Completed Flow 07/28/2013 47656 EKG Tracing & Interpretation Completed 06/30/2012 34046 ECHO Transthorasic Realtime 2D W Doppler & Color Flow Hosp Completed 06/30/2012 97027 EKG, Interpretation Only Completed 06/29/2012 50114 EKG, Interpretation Only Completed 06/28/2012 52480 Left Heart Cath. Incl S/I Coronaries, Angio S/I V Gram If Completed Done 06/28/2012 21919 EKG, Interpretation Only Completed 06/28/2012 20102 Percutaneous Transcatheter Placement Of Intracoronary Completed Stent 06/28/2012 12473 IV Rx Trancath Therapy(Nitro/Sofía) Completed Encounters Type Date Location Provider Dx Diagnosis Office Visit 02/03/2018 [facility] Brooke Hanley, I25.119 [facility] heart 9:00a N.P. disease of samish cor art w unsp ang pctrs R07.9 Chest pain, unspecified I24.9 Acute ischemic heart disease, unspecified E78.00 Pure hypercholesterolemia, unspecified Office 12/10/2017 [place] Brooke Foy E78.00 Pure Visit 9:30a Cardiology Jose Antonio FinkPTracy hypercholesterolemia, Pumper Gauger unspecified I25.119 [facility] heart disease of samish cor art w unsp ang pctrs I10 Essential (primary) hypertension Office Visit 09/11/2017 9:00a [facility] Anthony Mccray I25.119 [facility] heart Tessy Adorno disease of samish cor art w unsp ang pctrs I10 Essential (primary) hypertension E78.00 Pure hypercholesterolemia, unspecified I21.4 Non-St elevation (Nstemi) myocardial infarction Office Visit 07/11/2017 1:00p [facility] Anthony Mccray I25.119 [facility] heart Tessy Adorno disease of samish cor art w unsp ang pctrs I10 Essential (primary) hypertension E78.00 Pure hypercholesterolemia, unspecified Office Visit 06/18/2017 10:07a [place] [facility] Chandler Dowling I21.4 Non-St elevation Of Pumper Gauger AT [facility] MD Alondra, (Nstemi) [facility] myocardial infarction I25.119 Athscl heart disease of samish cor art w unsp ang pctrs Office Visit 06/18/2017 8:52a [facility] Lyeda I21.4 Non-St elevation Assoc,pc DO Cal (Nstemi) Hospitalists myocardial infarction K21.9 Gastro-esophageal reflux disease without esophagitis Office Visit 06/17/2017 12:25p [place] [facility] Rickey Thomas R07.9 Chest pain, Of Chelsea Cadena M.D. 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 heart disease, Hospitalists unspecified R07.9 Chest pain, unspecified E11.9 Type 2 diabetes mellitus without complications I10 Essential (primary) hypertension Office Visit 06/16/2017 3:47p [place] [facility] London S. 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10 [facility] heart Tessy Adorno disease of samish coronary artery w/o ang pctrs I10 Essential (primary) hypertension E11.9 Type 2 diabetes mellitus without complications Office Visit 11/22/2015 10:00a [place] [facility] ROCAEL Abrams I25.10 Athscl heart Of Pumper Gauger disease of samish coronary artery w/o ang pctrs I10 Essential (primary) hypertension Office Visit 11/18/2015 2:00p [facility] Anthony Mccray I25.10 Ath[facility] heart Tessy Adorno disease of samish coronary artery w/o ang pctrs I10 Essential (primary) hypertension E11.9 Type 2 diabetes mellitus without complications Office Visit 08/30/2015 9:30a [place] [facility] ROCAEL Abrams I25.10 Aths[facility] heart Of [facility] disease of samish coronary artery w/o ang pctrs I10 Essential (primary) hypertension N52.9 Male erectile dysfunction, unspecified E78.5 Hyperlipidemia, unspecified Office Visit 08/16/2015 2:40p [facility] Anthony Mccray I25.10 [facility] heart Tessy Adorno disease of samish coronary artery w/o ang pctrs E11.9 Type 2 diabetes mellitus without complications I10 Essential (primary) hypertension R42 Dizziness and giddiness N52.9 Male erectile dysfunction, unspecified Office Visit 05/30/2015 Orth[facility] Debbie M65.322 Trigger finger, 9:30a Services Of Lin Franklin M.D. left index finger Office Visit 11/28/2014 [facility] Noelle Elizabeth, 789.00 Pain Abdominal 8:32a Assoc,pc M.D. Unspec Site Hospitalists 414.00 Coronary Atherosclerosis Unspec Type Vessel [place]/Graft 790.6 Abnormal Blood Chemistry Other 250.00 Diabetes Mellitus W/O Compl Type II Or Unspec Controlled Office Visit 11/27/2014 8:31a [facility] Steven Wilsonbroderick, 789.00 Pain Abdominal Assoc,pc M.D. Unspec Site Hospitalists 414.00 Coronary Atherosclerosis Unspec Type Vessel [place]/Graft 790.6 Abnormal Blood Chemistry Other 250.00 Diabetes Mellitus W/O Compl Type II Or Unspec Controlled Office Visit 03/17/2014 2:40p [facility] Anthony Mccray 401.9 La Adorno M.D. Unspec 250.00 Diabetes Mellitus W/O Compl Type II Or Unspec Controlled 414.01 Coronary Atherosclerosis [place] Office Visit 01/07/2014 [place] Anat Goddard, 414.00 Coronary 3:00p Cardiology [place] Atherosclerosis Unspec Type Vessel [place]/Graft 414.9 Ischemic Heart Disease Chronic Unspec 401.9 Hypertension Unspec 250.00 Diabetes Mellitus W/O Compl Type II Or Unspec Controlled Office Visit 10/17[facility]2013 [facility] [place], 786.50 Pain Chest Assoc,pc N.P. Unspec Hospitalists 414.00 Coronary Atherosclerosis Unspec Type Vessel [place]/Graft 401.9 Hypertension Unspec 250.00 Diabetes Mellitus W/O Compl Type II Or Unspec Controlled Office Visit 10/17/2013 9:49a [place] [facility] Jose D Verde 414.9 Ischemic Heart Of Chelsea Smith M.D., Disease Chronic FACC, FASNC Unspec 786.50 Pain Chest Unspec Office Visit 10/16/2013 11:41a [facility] Gennaro 786.50 Pain Chest Assoc,pc Otis N.P. Unspec Hospitalists 414.00 Coronary Atherosclerosis Unspec Type Vessel [place]/Graft 401.9 Hypertension Unspec 250.00 Diabetes Mellitus W/O Compl Type II Or Unspec Controlled Office Visit 09/29/2013 3:00p [facility] Anthony Mccray 401.9 Hypertension Tessy Adorno Unspec 414.01 Coronary Atherosclerosis [place] 250.00 Diabetes Mellitus W/O Compl Type II Or Unspec Controlled Office Visit 09/14/2013 8:30a [facility] Anthony Mccray 786.50 Pain Chest Tessy Adorno Unspec 414.9 Ischemic Heart Disease Chronic Unspec Office Visit 08/31/2013 3:00p [place] [facility] Anat Goddard, 401.9 Hypertension Unspec Of [facility] PA 414.01 Coronary Atherosclerosis [place] 250.00 Diabetes Mellitus W/O Compl Type II Or Unspec Controlled Office Visit 08/17/2013 10:00a [place] [facility] Anat Goddard 401.9 Hypertension Unspec Of [facility] ROCAEL 414.01 Coronary Atherosclerosis [place] 250.00 Diabetes Mellitus W/O Compl Type II Or Unspec Controlled 307.49 Sleep Disorder Other 799.02 Hypoxemia Office Visit 08/12/2013 [place] Anthony Mccray 414.01 Coronary 10:00a Markell Adorno M.D. Atherosclerosis [place] 250.00 Diabetes Mellitus W/O Compl Type II Or Unspec Controlled 401.9 Hypertension Unspec 307.49 Sleep Disorder Other 530.81 Esophageal Reflux Office Visit 07/28/2013 10:00a [facility] Anthony Mccray 250.00 Melanie Adorno M.D. Mellitus W/O Compl Type II Or Unspec Controlled 414.9 Ischemic Heart Disease Chronic Unspec 414.01 Coronary Atherosclerosis [place] 401.9 Hypertension Unspec 307.49 Sleep Disorder Other 530.81 Esophageal Reflux 607.84 Impotence Organic Origin Office Visit 02/24/2013 [place] Debbie 414.01 Coronary 1:20p Cardiology Rosangela Desir Atherosclerosis [place] 414.9 Ischemic Heart Disease Chronic Unspec 414.11 Aneurysm Coronary Vessels 401.9 Hypertension Unspec 272.4 Hyperlipidemia Other Unspec 250.00 Diabetes Mellitus W/O Compl Type II Or Unspec Controlled Office Visit 08/26/2012 [place] Debbie 414.01 Coronary 2:00p Cardiology AT DesirCasi.O. Atherosclerosis [facility] [place] 414.9 Ischemic Heart Disease Chronic Unspec 414.11 Aneurysm Coronary Vessels 401.9 Hypertension Unspec 272.4 Hyperlipidemia Other Unspec 250.00 Diabetes Mellitus W/O Compl Type II Or Unspec Controlled Office Visit 07/10/2012 [place] Debbie 410.70 Myocardial Infarc 2:40p Cardiology AT [place] D.O. Acute [facility] Subendocardial Episode Care Unspec 414.01 Coronary Atherosclerosis [place] 414.11 Aneurysm Coronary Vessels 401.9 Hypertension Unspec 272.4 Hyperlipidemia Other Unspec 250.00 Diabetes Mellitus W/O Compl Type II Or Unspec Controlled Office Visit 07/01/2012 1:54p [place] [facility] Torin Burroughs, 411.1 Coronary Syndrome Of Chelsea Still, [facility], Intermediate FSCAI 414.9 Ischemic Heart Disease Chronic Unspec Office Visit 06/29/2012 8:43a [facility] Debbie 786.50 Pain Chest Desir, D.O. Unspec 411.1 Coronary Syndrome Intermediate 410.70 Myocardial Infarc Acute Subendocardial Episode Care Unspec 414.01 Coronary Atherosclerosis [place] 401.1 Hypertension Benign 250.00 Diabetes Mellitus W/O Compl Type II Or Unspec Controlled Office Visit 06/28/2012 8:45a [facility] Debbie 786.50 Pain Chest Desir, D.O. Unspec 411.1 Coronary Syndrome Intermediate 410.70 Myocardial Infarc Acute Subendocardial Episode Care Unspec 414.01 Coronary Atherosclerosis [place] 401.1 Hypertension Benign 250.00 Diabetes Mellitus W/O Compl Type II Or Unspec Controlled Office Visit 05/28/2009 2:15a [facility] Jesus 435.9 TIA Ischemia Assoc,tip Eldridge M.D. Cerebral Hospitalists Transient Unspec 401.9 Hypertension Unspec 250.00 Diabetes Mellitus W/O Compl Type II Or Unspec Controlled 272.4 Hyperlipidemia Other Unspec Office Visit 05/27/2009 3:30a [place] Sukumar Lee 435.9 TIA Ischemia Assoctip M.D. 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
[2018-05-17 18:12] VITALS: BP 157/103
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
== END 2018-05-17 19:20 | disposition home or self-care (01) ==
LOC: UCEAST 17:05
DX: T23.002A Burn of unspecified degree of left hand, unspecified site, initial encounter (principal); X19.XXXA Contact with other heat and hot substances, initial encounter; Y92.9 Unspecified place or not applicable; E11.9 Type 2 diabetes mellitus without complications; Z79.4 Long term (current) use of insulin; I25.10 Atherosclerotic heart disease of native coronary artery without angina pectoris; I10 Essential (primary) hypertension; Z95.5 Presence of coronary angioplasty implant and graft; Z72.0 Tobacco use
CPT/HCPCS: 16000; 16020; 99212; G0463

== ENCOUNTER 2018-06-09 13:27 | Emergency (ER) | payer OTHER ==
[2018-06-09] MEDS ORDERED: Nitroglycerin TAB 0.4 MG* 0.4 MG TAB SL ONE (17:08)
[2018-06-09] MEDS ORDERED: Aspirin 81 mg CHEW TAB* 81 MG TAB.CHEW PO ONE (17:08)
[2018-06-09 17:10] LABS: ABS Basophils 0.1 10^3/ul (0-0.2); ABS Eosinophils 0.1 10^3/ul (0-0.6); ABS Lymphocytes 2.2 10^3/ul (1.0-4.8); ABS Monocytes 0.8 10^3/ul (0-0.8); ABS Neutrophils 3.8 10^3/ul (1.5-7.7); ABS Nucleated RBC 0 10^3/ul; Eosinophil % 1.6 %; Hematocrit 45 % (42-52); Hemoglobin 14.4 g/dl (14.0-18.0); Lymphocyte % 31.5 %; Mean Corpuscular HGB Conc 32 g/dl (31-36); Mean Corpuscular Hemoglobin 26 pg (27-31); Mean Corpuscular Volume 81 fL (80-94); Mean Platelet Volume 7.5 fL (7.4-10.4); Nucleated Red Blood Cells % 0; Platelet Count 265 10^3/ul (150-450); Red Cell Distribution Width 19 % (10.5-15)
[2018-06-09 17:22] LABS: Albumin/Globulin Ratio 1.4 (1-3); BUN/Creatinine Ratio 20.2 (8-20); Calcium 9.1 mg/dL (8.6-10.3); EGFR African American 90.1 (>60); EGFR Non-African American 74.4 (>60); Globulin 2.9 g/dL (2-4); Total Protein 6.9 g/dL (6.4-8.9)
[2018-06-09] MEDS ORDERED: Morphine 4 MG/ML VIAL (1 ml) 4 MG/ML VIAL IV ONE (18:04)
--- NOTE | 2018-06-09 18:17 | ED ---
HPI Chest Pain - HPI Summary HPI Summary: A 53 y/o male presents to [facility] with a chief complaint of intermittent left sided chest pain for the past three days. At triage he rated his pain as a 6/ 10. He describes his pain as a chest pressure. The patient reports that in 2001 he had his first NH and had two stents placed. He had his second NH in 3021 and had two stents placed. On June 19, 2017 he was sent to [facility] for quadruple bypass. He denies a Hx of bloodclots in his lungs or legs. He says that he takes Plavix and aspirin. He has a Hx of DM and HTN. 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 Adorno. Vital signs while in room HR: 58 bpm, O2 Sat: 99, BP: 148/79. - History of Current Complaint Chief Complaint: EDChestPainROMI Time Seen by Provider: 06/09/18 16:38 Hx Obtained From: Patient Onset/Duration: Started Days Ago, Still Present Timing: Intermittent, Lasting Days Initial Severity: Moderate Current Severity: Moderate Pain Intensity: 6 Pain Scale Used: 0-10 Numeric Chest Pain Location: Diffuse Chest Pain Radiates: No Character: Pressure/Squeezing Aggravating Factor(s): Nothing Alleviating Factor(s): Nothing Associated Signs and Symptoms: Negative: Fever, Edema - Additional Pertinent History Primary Care Physician: [id number] - Allergy/Home Medications Allergies/Adverse Reactions: Allergies Allergy/AdvReac Type Severity Reaction Status Date / Time No Known Allergies Allergy Verified 05/17/18 18:13 PMH/Surg Hx/FS Hx/Imm Hx Endocrine/Hematology History: Reports: Hx Diabetes Denies: Hx Thyroid Disease Cardiovascular History: Reports: Hx Angina, Hx Coronary Artery Disease, Hx Hypercholesterolemia, Hx Hypertension, Hx Myocardial Infarction, Other Cardiovascular Problems/Disorders - HYPERLIPIDEMIA Denies: Hx Congestive Heart Failure, Hx Pacemaker/ICD, Hx Valvular Heart Disease Respiratory History: Denies: Hx Asthma, Hx Chronic Obstructive Pulmonary Disease (COPD) GI History: Reports: Hx Gall Bladder Disease, Other GI Disorders - rody Denies: Hx Gastroesophageal Reflux Disease, Hx Ulcer History: Denies: Hx Renal Disease Musculoskeletal History: Denies: Hx Arthritis Sensory History: Reports: Hx Contacts or Glasses - GLASSES Denies: Hx Hearing Aid Opthamlomology History: Reports: Hx Contacts or Glasses - GLASSES Neurological History: Denies: Hx Migraine, Hx Transient Ischemic Attacks (TIA) Psychiatric History: Denies: Hx Panic Disorder - Cancer History Cancer Type, Location and Year: cardiac bypass surgery 2009, 2011 - Surgical History Surgery Procedure, Year, and Place: Stent to LAD 2001. CARDIAC STENTS PLACED 1 2001, 1 STENT 2010. 12/2015 LAPAROSCOPIC CHOLEYCECTOMY Hx Anesthesia Reactions: No Infectious Disease History: Yes Infectious Disease History: Denies: Hx Clostridium Difficile, Hx Hepatitis, Hx Human Immunodeficiency Virus (HIV), Hx of Known/Suspected MRSA, Hx Shingles, Hx Tuberculosis, Hx Known/ Suspected VRE, Hx Known/Suspected VRSA, History Other Infectious Disease, Traveled Outside the [place] in Last 30 Days - Family History Known Family History: Positive: Hypertension - Social History Alcohol Use: None Substance Use Type: Reports: None Hx Tobacco Use: Yes Smoking Status (MU): Former Smoker Type: Cigarettes Amount Used/How Often: 1 pck per day Length of Time of Smoking/Using Tobacco: quit 8 months ago Have You Smoked in the Last Year: Yes - "a cigarette if I'm very stressed". Review of Systems Negative: Fever Positive: Chest Pain Negative: Edema All Other Systems Reviewed And Are Negative: Yes Physical Exam - Summary Physical Exam Summary: GENERAL: Patient is a well-developed and nourished M who is lying comfortable in the stretcher. Patient is not in any acute respiratory distress. HEAD AND FACE: Normocephalic EYES: PERRLA, EOMI x 2. EARS: Hearing grossly intact. MOUTH: Oropharynx within normal limits. NECK: Supple, trachea is midline, no adenopathy, no JVD, no carotid bruit. CHEST: Symmetric, Focal TTP upon chest. LUNGS: Clear to auscultation bilaterally. No wheezing or crackles. CVS: Regular rate and rhythm, S1 and S2 present, no murmurs or gallops appreciated. ABDOMEN: Soft, non-tender. Bowel sounds are normal. No abdominal abnormal pulsations. EXTREMITIES: Full ROM in all major joints, no edema, no cyanosis or clubbing. NEURO: Alert and oriented x 3. No acute neurological deficits. Speech is normal and follows commands. SKIN: Dry and warm Triage Information Reviewed: Yes Vital Signs On Initial Exam: Initial Vitals Temp Pulse Resp BP Pulse Ox 97.8 F 71 18 159/95 97 06/09/18 13:30 06/09/18 13:30 06/09/18 13:30 06/09/18 13:30 06/09/18 13:30 Vital Signs Reviewed: Yes Diagnostics - Vital Signs Vital Signs Temp Pulse Resp BP Pulse Ox 06/09/18 17:55 124/86 06/09/18 17:37 62 16 138/84 99 06/09/18 15:57 97.0 F 64 18 165/99 97 06/09/18 13:30 97.8 F 71 18 159/95 97 - Laboratory Lab Results: Lab Results 06/09/18 06/09/18 06/09/18 Range/Units 16:51 16:51 16:51 WBC 7.0 (3.5-10.8) 10^3/ul RBC 5.50 H (4.00-5.40) 10^6/ul Hgb 14.4 (14.0-18.0) g/dl Hct 45 (42-52) % MCV 81 (80-94) fL MCH 26 L (27-31) pg MCHC 32 (31-36) g/dl RDW 19 H (10.5-15) % Plt Count 265 (150-450) 10^3/ul MPV 7.5 (7.4-10.4) fL Neut % (Auto) 54.4 % Lymph % (Auto) 31.5 % Rice % (Auto) 11.5 % Eos % (Auto) 1.6 % Baso % (Auto) 1.0 % Absolute Neuts (auto) 3.8 (1.5-7.7) 10^3/ul Absolute Lymphs (auto) 2.2 (1.0-4.8) 10^3/ul Absolute Monos (auto) 0.8 (0-0.8) 10^3/ul Absolute Eos (auto) 0.1 (0-0.6) 10^3/ul Absolute Basos (auto) 0.1 (0-0.2) 10^3/ul Absolute Nucleated RBC 0 10^3/ul Nucleated RBC % 0 Sodium 135 (135-145) mmol/L Potassium 4.0 (3.5-5.0) mmol/L Chloride 102 (101-111) mmol/L Carbon Dioxide 27 (22-32) mmol/L Anion Gap 6 (2-11) mmol/L BUN 21 (6-24) mg/dL Creatinine 1.04 (0.67-1.17) mg/dL Est GFR ( Amer) 90.1 (>60) Est GFR (Non-Af Amer) 74.4 (>60) BUN/Creatinine Ratio 20.2 H (8-20) Glucose 113 H (70-100) mg/dL Lactic Acid 1.2 (0.5-2.0) mmol/L Calcium 9.1 (8.6-10.3) mg/dL Total Bilirubin 1.00 (0.2-1.0) mg/dL AST 151 H (13-39) U/L ALT 99 H (7-52) U/L Alkaline Phosphatase 178 H (34-104) U/L Troponin I 0.00 (<0.04) ng/mL Total Protein 6.9 (6.4-8.9) g/dL Albumin 4.0 (3.2-5.2) g/dL Globulin 2.9 (2-4) g/dL Albumin/Globulin Ratio 1.4 (1-3) Result Diagrams: 06/09/18 16:51 06/09/18 16:51 Lab Statement: Any lab studies that have been ordered have been reviewed, and results considered in the medical decision making process. - EKG 13:38 Cardiac Rate: NL - 68 bpm EKG Rhythm: Sinus Rhythm Summary of EKG Findings: EKG at 13:38 showed normal sinus rhythm at 68 bpm with normal axis. Re-Evaluation - Re-Evaluation First Eval Re-Evaluation Time: 18:00 Change: Unchanged Comment: The patient's pain was not alleviated by NTG. Second Eval Re-Evaluation Time: 18:30 Change: Unchanged Comment: Patient still feels pain when he touches his chest Chest Pain Course/Dx - Course Course Of Treatment: A 53 y/o male presents to [facility] with a chief complaint of intermittent left sided chest pain for the past three days. The physical exam revealed focal TTP upon chest. EKG at 13:38 showed normal sinus rhythm at 68 bpm with normal axis. Bloodwork and chemistries obtained and are WNL. In the ED course the patient was given Morphine IV, Aspirin PO and NTG SL. The patient reports that his pain was not alleviated by NTG. Pain is reproducible on exam but given the patient's cardiac history we will repeat his troponin. The patient will be signed out to Dr. Sue, pending repeat troponin and CXR. - Diagnoses Provider Diagnoses: Chest pain Discharge - Sign-Out/Discharge Documenting (check all that apply): Sign-Out Patient Signing out patient TO: Ric Sue - pending second troponin and CXR Patient Received Moderate/Deep Sedation with Procedure: No - Discharge Plan Condition: Good Disposition: HOME Patient Education Materials: Chest Wall Pain (ED) Referrals: Roge Tarango MD [Primary Care Provider] - 1 Week (if not improving) - Billing Disposition and Condition Condition: GOOD Disposition: Home - Attestation Statements Document Initiated by Scribe: Yes Documenting Scribe: Torin Blount Provider For Whom Scribe is Documenting (Include Credential): Nessa Burt MD Scribe Attestation: Torin Gutierrez, scribed for Nessa Burt MD on 06/10/18 at 0926. Scribe Documentation Reviewed: Yes Provider Attestation: The documentation as recorded by the Torin pemberton accurately reflects the service I personally performed and the decisions made by Elicia vazquez MD Status of Scribe Document: Viewed
[2018-06-09] MEDS ORDERED: Ibuprofen TAB* 400 MG PO ONE (19:59)
--- NOTE | 2018-06-09 21:38 | ED ---
Progress - Progress Note Progress Note: The patient is a sign-out from Dr. Nessa Burt MD, to Dr. Ric Sue MD, at change of shift at 1900 pending CXR, repeat troponin, and disposition. CXR reveals no acute process. Repeat troponin is negative. He is diagnosed with chest pain. He will be discharged home. He agrees with plan and understands the need for return to the ED if necessary. - Results/Orders Results/Orders: CXR: No acute process. ED physician has reviewed this report. - EKG/XRAY/CT XRAY: chest Re-Evaluation - Re-Evaluation First Eval Re-Evaluation Time: 18:00 Change: Unchanged Comment: The patient's pain was not alleviated by NTG. Second Eval Re-Evaluation Time: 18:30 Change: Unchanged Comment: Patient still feels pain when he touches his chest Third Eval Re-Evaluation Time: 21:25 Change: Improved Comment: Patient is feeling better and wants to be discharged home. Course/Dx - Course Course Of Treatment: A 53 y/o male presents to [facility] with a chief complaint of intermittent left sided chest pain for the past three days. The physical exam revealed focal TTP upon chest. EKG at 13:38 showed normal sinus rhythm at 68 bpm with normal axis. Bloodwork and chemistries obtained and are WNL. In the ED course the patient was given Morphine IV, Aspirin PO and NTG SL. The patient reports that his pain was not alleviated by NTG. Pain is reproducible on exam but given the patient's cardiac history we will repeat his troponin. The patient will be signed out to Dr. Sue, pending repeat troponin and CXR. - Diagnoses Provider Diagnoses: Chest pain Discharge - Sign-Out/Discharge Documenting (check all that apply): Patient Departure - Patient will be discharged home., Receiving Sign-Out Receiving patient FROM: Nessa Burt - Patient is a sign-out from Dr. Elicia Burt MD, to Dr. Ric Sue MD, at change of shift at 1900 pending CXR , repeat troponin, and disposition. Patient Received Moderate/Deep Sedation with Procedure: No - Discharge Plan Condition: Good Disposition: HOME Patient Education Materials: Chest Wall Pain (ED) Referrals: Roge Tarango MD [Primary Care Provider] - 1 Week (if not improving) - Billing Disposition and Condition Condition: GOOD Disposition: Home - Attestation Statements Document Initiated by [place]: Yes Documenting Scribe: Rola Mojica Provider For Whom Reno is Documenting (Include Credential): Dr. Ric Sue MD Scribe Attestation: Rola Gutierrez scribed for Dr. Ric Sue MD on 06/10/18 at 0605. Scribe Documentation Reviewed: Yes Provider Attestation: The documentation as recorded by the Rola pemberton accurately reflects the service I personally performed and the decisions made by me, Dr. Ric Sue MD Status of Scribe Document: Viewed
[2018-06-09 21:42] VITALS: BP 145/91
== END 2018-06-09 21:41 | disposition home or self-care (01) ==
LOC: ED 13:27
DX: R07.9 Chest pain, unspecified (principal); Z87.891 Personal history of nicotine dependence; E11.9 Type 2 diabetes mellitus without complications; I25.10 Atherosclerotic heart disease of native coronary artery without angina pectoris; E78.00 Pure hypercholesterolemia, unspecified; I10 Essential (primary) hypertension; I25.2 Old myocardial infarction
CPT/HCPCS: 36415; 71046; 80053; 83605; 84484; 85025; 85379; 93005; 99284; A9270-GY; J2270

== ENCOUNTER 2020-07-07 16:56 | Observation (INO) ==
[2020-07-07 17:19] LABS: Hematocrit 38 % (42-52); Hemoglobin 13.5 g/dL (14.0-18.0); Mean Corpuscular HGB Conc 36 g/dL (31-36); Mean Corpuscular Hemoglobin 34 pg (27-31); Mean Corpuscular Volume 95 fL (80-94); Mean Platelet Volume 6.8 fL (7.4-10.4); Platelet Count 202 10^3/uL (150-450); Red Blood Count 3.96 10^6 /uL (4.18-5.48); Red Cell Distribution Width 23 % (10-15)
[2020-07-07 17:28] LABS: Albumin 4.3 g/dL (3.2-5.2); Albumin/Globulin Ratio 1.7 (1-3); BUN/Creatinine Ratio 20.3 (8-20); Calcium 9.7 mg/dL (8.6-10.3); EGFR African American 122.8 (>60); EGFR Non-African American 101.5 (>60); Globulin 2.6 g/dL (2-4); Potassium 3.4 mmol/L (3.5-5.0); Total Bilirubin 1.8 mg/dL (0.2-1.0); Total Protein 6.9 g/dL (6.4-8.9)
[2020-07-07 17:29] LABS: Troponin I 0.01 ng/mL (<0.03)
[2020-07-07 17:58] LABS: ABS Eosinophils 0.1 10^3/ul (0-0.6); ABS Lymphocytes 1.7 10^3/ul (1.0-4.8); ABS Monocytes 0.5 10^3/ul (0-0.8); ABS Neutrophils 3.7 10^3/ul (1.5-7.7); Eosinophil % 0.9 %; Lymphocyte % 28.2 %; Nucleated Red Blood Cells % 0.2
[2020-07-07 20:12] LABS: Magnesium 1.3 mg/dL (1.9-2.7)
[2020-07-07] MEDS ORDERED: Magnesium Sulfate IV 3 GM in NS 0.9% 100 ml BAG 100 ML IVPB ONE (20:36)
[2020-07-07] MEDS ORDERED: Potassium Chlor 20 meq TAB.ER PO ONE (20:36)
[2020-07-07 20:43] LABS: Troponin I 0.03 ng/mL (<0.03)
[2020-07-07] MEDS ORDERED: Dextrose 50% Syringe 50 ml 25 GM/50 ML SYRINGE IV PUSH PRN (20:58)
[2020-07-07] MEDS ORDERED: Enoxaparin 40 MG/0.4 ML SYR SUBCUT SCH (21:00)
[2020-07-07] MEDS ORDERED: Insulin GLARGINE 100 un/ml 10 ml VIAL SUBCUT SCH (21:00)
[2020-07-07 22:56] LABS: Troponin I 0.03 ng/mL (<0.03)
[2020-07-08 06:18] LABS: ABS Eosinophils 0.1 10^3/ul (0-0.6); ABS Lymphocytes 2.3 10^3/ul (1.0-4.8); ABS Monocytes 0.4 10^3/ul (0-0.8); ABS Neutrophils 2.4 10^3/ul (1.5-7.7); Eosinophil % 1.2 %; Hematocrit 36 % (42-52); Hemoglobin 12.7 g/dL (14.0-18.0); Lymphocyte % 43.9 %; Mean Corpuscular HGB Conc 35 g/dL (31-36); Mean Corpuscular Hemoglobin 34 pg (27-31); Mean Corpuscular Volume 96 fL (80-94); Mean Platelet Volume 6.5 fL (7.4-10.4); Platelet Count 174 10^3/uL (150-450); Red Blood Count 3.76 10^6 /uL (4.18-5.48); Red Cell Distribution Width 23 % (10-15); White Blood Count 5.2 10^3/uL (3.5-10.8)
[2020-07-08 06:29] LABS: Anion Gap 7 mmol/L (2-11); BUN/Creatinine Ratio 18.8 (8-20); Blood Urea Nitrogen 15 mg/dL (6-24); CO2 Carbon Dioxide 27 mmol/L (22-32); Chloride 106 mmol/L (101-111); Cholesterol 91 mg/dL; Glucose 119 mg/dL (70-100); HDL Cholesterol 29.6 mg/dL; LDL Cholesterol 25 mg/dL; Potassium 3.6 mmol/L (3.5-5.0); Sodium 140 mmol/L (135-145); Triglycerides 183 mg/dL
[2020-07-08 06:34] LABS: Troponin I 0.03 ng/mL (<0.03)
[2020-07-08] MEDS ORDERED: Aspirin EC 81 mg TAB.EC (enteric coated) PO SCH (09:00)
[2020-07-08] MEDS ORDERED: Aminophylline 25 MG/ML VIAL ONE (09:05)
[2020-07-08] MEDS ORDERED: Regadenoson 0.4 MG/5 ML SYRINGE ONE (09:05)
[2020-07-08 13:51] VITALS: BP 157/86
== END 2020-07-08 14:20 | disposition home or self-care (01) ==
LOC: ED 16:56 → MEDTELE 16:56
PROVIDERS: ADMIT Internal Medicine; ATTEND Student in an Organized Health Care Education/Training Program

== ENCOUNTER 2021-10-18 04:31 | Observation (INO) ==
[2021-10-18] MEDS ORDERED: LORazepam 2 mg VIAL 1 ml IV PUSH ONE ×2 (04:53→08:36)
[2021-10-18] MEDS ORDERED: Lorazepam PYXIS KEY PRN ×2 (04:53→08:36)
[2021-10-18] MEDS ORDERED: Lactated Ringers 1000 ml BAG 1,000 ML IV ONE ×3 (04:53→17:56)
[2021-10-18] MEDS ORDERED: Ondansetron 4 mg VIAL 2 MG/ML 2 ml VIAL IV ONE ×2 (04:59→08:38)
[2021-10-18 05:05] LABS: ABS Basophils 0.1 10^3/ul (0-0.2); ABS Eosinophils 0.5 10^3/ul (0-0.6); ABS Lymphocytes 4.8 10^3/ul (1.0-4.8); ABS Monocytes 1.1 10^3/ul (0-0.8); ABS Neutrophils 5.7 10^3/ul (1.5-7.7); Eosinophil % 4.2 %; Hematocrit 34 % (42-52); Lymphocyte % 39.4 %; Mean Corpuscular HGB Conc 32 g/dL (31-36); Mean Corpuscular Hemoglobin 26 pg (27-31); Mean Corpuscular Volume 81 fL (80-94); Mean Platelet Volume 6.7 fL (7.4-10.4); Platelet Count 379 10^3/uL (150-450); Red Blood Count 4.22 10^6 /uL (4.18-5.48); Red Cell Distribution Width 17 % (10-15); White Blood Count 12.2 10^3/uL (3.5-10.8)
[2021-10-18 05:36] LABS: Albumin/Globulin Ratio 1.1 (1-3); C Reactive Protein 2.09 mg/L (<8.01); Globulin 3.5 g/dL (2-4); Potassium 4.4 mmol/L (3.5-5.0); Total Bilirubin 0.4 mg/dL (0.2-1.0); Total Protein 7.5 g/dL (6.4-8.9); eGFR CKD-EPI 92.2 (>60)
[2021-10-18] MEDS ORDERED: Iohexol 350 (CONTRAST) 500 ML MDV IV ONE ×2 (05:51→06:51)
[2021-10-18] MEDS ORDERED: Metoclopramide 5 MG/ML VIAL (10 mg) IV ONE (06:08)
[2021-10-18 10:03] LABS: Magnesium 1.3 mg/dL (1.9-2.7)
[2021-10-18] MEDS ORDERED: Magnesium Sulfate 2 gm BAG 2 GM/50 ML BAG IVPB ONE (10:33)
[2021-10-18] MEDS ORDERED: Dextrose 50% Syringe 50 ml 25 GM/50 ML SYRINGE IV PUSH PRN ×2 (12:17)
[2021-10-18 12:35] LABS: ABS Basophils 0.1 10^3/ul (0-0.2); ABS Lymphocytes 1.6 10^3/ul (1.0-4.8); ABS Monocytes 0.3 10^3/ul (0-0.8); ABS Neutrophils 7.2 10^3/ul (1.5-7.7); Eosinophil % 0.3 %; Hematocrit 31 % (42-52); Hemoglobin 9.9 g/dL (14.0-18.0); Lymphocyte % 17.4 %; Mean Corpuscular HGB Conc 33 g/dL (31-36); Mean Corpuscular Hemoglobin 26 pg (27-31); Mean Corpuscular Volume 81 fL (80-94); Mean Platelet Volume 6.9 fL (7.4-10.4); Platelet Count 324 10^3/uL (150-450); Red Blood Count 3.78 10^6 /uL (4.18-5.48); Red Cell Distribution Width 17 % (10-15); White Blood Count 9.2 10^3/uL (3.5-10.8)
[2021-10-18 12:55] LABS: Activated Partial Thrombo Time 28.1 seconds (26.0-38.0); INR 1.1 (0.89-1.11)
[2021-10-18 13:07] LABS: eGFR CKD-EPI 102.5 (>60)
[2021-10-18] MEDS: Ondansetron 4 mg VIAL 2 MG/ML 2 ml VIAL IV PRN (14:30)
[2021-10-18] MEDS: Heparin 5000 UNITS/ML 1 mL VIAL SUBCUT SCH ×2 (14:30→21:11)
[2021-10-18] MEDS ORDERED: Insulin GLARGINE 100 un/ml 10 ml VIAL SUBCUT SCH (21:00)
[2021-10-19 05:38] LABS: ABS Eosinophils 0.2 10^3/ul (0-0.6); ABS Lymphocytes 2.2 10^3/ul (1.0-4.8); ABS Monocytes 0.8 10^3/ul (0-0.8); ABS Neutrophils 5.4 10^3/ul (1.5-7.7); Eosinophil % 2.3 %; Hematocrit 30 % (42-52); Hemoglobin 9.8 g/dL (14.0-18.0); Lymphocyte % 25.1 %; Mean Corpuscular HGB Conc 32 g/dL (31-36); Mean Corpuscular Hemoglobin 26 pg (27-31); Mean Corpuscular Volume 80 fL (80-94); Mean Platelet Volume 6.8 fL (7.4-10.4); Platelet Count 324 10^3/uL (150-450); Red Blood Count 3.78 10^6 /uL (4.18-5.48); Red Cell Distribution Width 17 % (10-15); White Blood Count 8.6 10^3/uL (3.5-10.8)
[2021-10-19] MEDS: Heparin 5000 UNITS/ML 1 mL VIAL SUBCUT SCH (05:39)
[2021-10-19 06:18] LABS: Calcium 9.3 mg/dL (8.6-10.3); Potassium 3.9 mmol/L (3.5-5.0); eGFR CKD-EPI 102.8 (>60)
[2021-10-19] MEDS: Ondansetron 4 mg VIAL 2 MG/ML 2 ml VIAL IV PRN (07:52)
[2021-10-19] MEDS ORDERED: Aspirin EC 81 mg TAB.EC (enteric coated) PO SCH (09:00)
[2021-10-19] MEDS ORDERED: Cholecalciferol (VIT D3) 1,000 unit TAB PO SCH (09:00)
[2021-10-19 10:52] VITALS: BP 108/70
[2021-10-20] MEDS ORDERED: FIDAXOMICIN 200 MG PO SCH (09:00)
== END 2021-10-19 14:15 | disposition home or self-care (01) ==
LOC: ED 04:31 → INTOOBSV 09:41 → EDHOLD 09:41 → SSU 11:26
PROVIDERS: ADMIT Internal Medicine; ATTEND Internal Medicine